=== PATIENT | female | born 1995 | race African-American/Black ===

== ENCOUNTER 2016-07-11 21:19 | Inpatient (IN) | payer OTHER ==
[~2016-07-11] VITALS: Ht 165.1 cm; Wt 56.7 kg
[2016-07-11 21:20] VITALS: BP 138/74; PULSE 104; RESP 22; TEMP 98; O2SAT 96
[2016-07-11] MEDS ORDERED: FOLI5CAP PO (21:51)
[2016-07-11] MEDS ORDERED: PERC5TAB12 PO (21:51)
--- NOTE | 2016-07-11 21:57 | PD ---
HPI Chief Complaint: Sickle Cell Time Seen by Provider: 21:46 Travel History International Travel<30 days: No Contact w/Intl Traveler<30days: No Traveled to known affect area: No History of Present Illness HPI 20-year-old female complains of chest pain back pain extremity pain. Patient has history of sickle cell disease with frequent sickle cell crisis. Patient states that she has crisis about once a week. Patient lives in [place]. Patient is [employer] attending school. Patient denies any coughing congestion fever chills. Patient denies any nausea vomiting diarrhea. She denies abdominal pain. Patient states that she has sharp pain around the chest, the back area and extremity. PFSH Past Medical History Sickle Cell Disease: Yes ?: Not LMP: 07/11/16 Past Surgical History Abdominal Surgery: Yes (LIVER SX) Cholecystectomy: Yes Social History Alcohol Use: No Tobacco Use: No Substance Use: No Allergies-Medications (Allergen,Severity, Reaction): Coded Allergies: No Known Allergies (Unverified , 07/11/16) Reported Meds & Prescriptions Reported Meds & Active Scripts Active Reported Percocet (Oxycodone-Acetaminophen) 5-325 mg Tab 1 Tab PO Q4H PRN Folic Acid 5 Mg Cap 1 Mg PO DAILY Review of Systems General / Constitutional: No: Fever Eyes: No: Visual changes HENT: No: Headaches Cardiovascular: Positive: Chest Pain or Discomfort Respiratory: No: Shortness of Breath Gastrointestinal: No: Abdominal Pain Genitourinary: No: Dysuria Musculoskeletal: Positive: Pain Skin: No Rash Neurologic: No: Weakness Psychiatric: No: Depression Endocrine: No: Polydipsia Hematologic/Lymphatic: No: Easy Bruising Physical Exam Narrative GENERAL: Well-nourished, well-developed patient. SKIN: Warm and dry. HEAD: Normocephalic. EYES: No scleral icterus. No injection or drainage. NECK: Supple, trachea midline. No JVD or lymphadenopathy. CARDIOVASCULAR: Regular rate and rhythm without murmurs, gallops, or rubs. RESPIRATORY: Breath sounds equal bilaterally. No accessory muscle use. GASTROINTESTINAL: Abdomen soft, non-tender, nondistended. MUSCULOSKELETAL: No cyanosis, or edema. BACK: Nontender without obvious deformity. No CVA tenderness. Neurologic exam normal. Data Data Last Documented VS Vital Signs Date Time Temp Pulse Resp B/P Pulse Ox O2 Delivery O2 Flow Rate FiO2 07/12/16 00:21 18 07/11/16 23:00 126 163/75 97 07/11/16 21:46 Room Air 07/11/16 21:20 98.0 Orders Electrocardiogram (07/11/16 21:50) Complete Blood Count With Diff (07/11/16 21:50) Basic Metabolic Panel (Bmp) (07/11/16 21:50) Iv Access Insert/Monitor (07/11/16 21:50) Ecg Monitoring (07/11/16 21:50) Oximetry (07/11/16 21:50) Retic Count (07/11/16 21:50) Sodium Chlor 0.9% 1000 Ml Inj (Ns 1000 M (07/11/16 22:00) Hydromorphone Pf Inj (Dilaudid Pf Inj) (07/11/16 22:00) Ondansetron Inj (Zofran Inj) (07/11/16 22:00) Diphenhydramine Inj (Benadryl Inj) (07/11/16 22:00) Hydromorphone Pf Inj (Dilaudid Pf Inj) (07/11/16 23:45) Diphenhydramine Inj (Benadryl Inj) (07/11/16 23:45) Sodium Chlor 0.9% 1000 Ml Inj (Ns 1000 M (07/12/16 00:00) Labs Laboratory Tests Test 07/11/16 22:08 Sodium Level 141 MEQ/L Potassium Level 3.8 MEQ/L Chloride Level 105 MEQ/L Carbon Dioxide Level 26.2 MEQ/L Anion Gap 10 MEQ/L Blood Urea Nitrogen 6 MG/DL Creatinine 0.55 MG/DL Estimat Glomerular Filtration 172 ML/MIN Rate Random Glucose 115 MG/DL Calcium Level 9.2 MG/DL White Blood Count 25.0 TH/MM3 Red Blood Count 2.18 MIL/MM3 Hemoglobin 8.2 GM/DL Hematocrit 23.2 % Mean Corpuscular Volume 106.7 FL Mean Corpuscular Hemoglobin 37.5 PG Mean Corpuscular Hemoglobin 35.2 % Concent Red Cell Distribution Width 19.6 % Platelet Count 508 TH/MM3 Mean Platelet Volume 8.7 FL Neutrophils (%) (Auto) 82.9 % Lymphocytes (%) (Auto) 10.8 % Monocytes (%) (Auto) 4.9 % Eosinophils (%) (Auto) 0.8 % Basophils (%) (Auto) 0.6 % Neutrophils # (Auto) 20.7 TH/MM3 Lymphocytes # (Auto) 2.7 TH/MM3 Monocytes # (Auto) 1.2 TH/MM3 Eosinophils # (Auto) 0.2 TH/MM3 Basophils # (Auto) 0.1 TH/MM3 CBC Comment AUTO DIFF Differential Comment AUTO DIFF CONFIRMED Toxic Granulation Platelet Estimate HIGH Platelet Morphology Comment NORMAL Sickle Cells 1+ Schreiber-[place] Bodies PRESENT Reticulocyte Count 9.3 % Absolute Reticulocyte Count 201.8 MIL/L MDM Medical Decision Making Medical Screen Exam Complete: Yes Emergency Medical Condition: Yes Interpretation(s) 1:43 AM. CBC WBC 25.0. Hemoglobin 8.2 hematocrit 23.2. MCV 106.7. Platelet 508. 82 neutrophil. Reticular cell count 9.3. Absolute reticulocyte count 201.8. BMP within normal limit. Differential Diagnosis Differential diagnosis including sickle cell crisis, acute on chronic pain. Narrative Course 20-year-old female complains chest pain, back pain, extremity pain. History of sickle cell disease with frequent sickle cell crisis. Dilaudid 1 mg IV given. Normal saline solution 1 L IV bolus. Benadryl 25 mg IV. Repeated Dilaudid 1 mg IV. Repeated Benadryl 25 mg IV. Repeated normal saline solution 1 L IV bolus. 1:42 AM. Patient still has intractable pain. Patient will be admitted to medical service. Diagnosis Primary Impression: Sickle cell crisis Admitting Information Admitting Physician Requests: Admit Franco Gilmore MD Jul 11, 2016 21:57
[2016-07-11] MEDS ORDERED: SODIUM CHLOR 0.9% 1000 ML INJ 1,000 ML IV ONE (22:00)
[2016-07-11] MEDS ORDERED: diphenhydrAMINE HCL 50 MG/ML VIAL IV PUSH ONE ×2 (22:00→23:45)
[2016-07-11] MEDS ORDERED: HYDROmorphone HCL PF 1 MG/ML VIAL IV PUSH ONE ×2 (22:00→23:45)
[2016-07-11] MEDS ORDERED: ONDANSETRON HCL 4 MG/2 ML VIAL IV PUSH ONE (22:00)
[2016-07-11 22:32] LABS: AUTOMATED NEUTROPHIL # 20.7 TH/MM3 (1.8-7.7); BASOPHIL # 0.1 TH/MM3 (0-0.2); BASOPHIL % 0.6 % (0.0-2.0); EOSINOPHIL # 0.2 TH/MM3 (0-0.4); EOSINOPHIL % 0.8 % (0.0-4.0); HEMATOCRIT 23.2 % (35.0-46.0); LYMPH % 10.8 % (9.0-44.0); LYMPHOCYTE # 2.7 TH/MM3 (1.0-4.8); MEAN CELL VOLUME 106.7 FL (80.0-100.0); MEAN CORPUSCULAR HEMOGLOBIN 37.5 PG (27.0-34.0); MEAN CORPUSCULAR HGB CONC 35.2 % (32.0-36.0); MONO % 4.9 % (0.0-8.0); NEUT % 82.9 % (16.0-70.0); PLATELET COUNT 508 TH/MM3 (150-450); RED BLOOD COUNT 2.18 MIL/MM3 (4.00-5.30); RED CELL DISTRIBUTION WIDTH 19.6 % (11.6-17.2); RETIC % 9.3 % (0.4-3.0)
[2016-07-11 22:34] LABS: HEMO FLAGS AUTO DIFF; REVIEW FLAG AUTO DIFF
[2016-07-11 22:47] LABS: BICARBONATE 26.2 MEQ/L (21.0-32.0); POTASSIUM 3.8 MEQ/L (3.5-5.1)
[2016-07-11 23:00] VITALS: BP 163/75; PULSE 126; RESP 22; O2SAT 97
[2016-07-12] MEDS ORDERED: SODIUM CHLOR 0.9% 1000 ML INJ 1,000 ML IV ONE
[2016-07-12 00:25] LABS: HOWELL-JOLLY BODIES PRESENT (NONE SEEN); SCAN/DIFF AUTO DIFF CONFIRMED
[2016-07-12 00:26] LABS: SICKLE CELLS 1+ (NORMAL)
[2016-07-12 00:27] LABS: PLATELET ESTIMATE SMEAR HIGH (NORMAL); PLATELET MORPHOLOGY NORMAL (NORMAL)
[2016-07-12] MEDS ORDERED: SODIUM CHLORIDE 0.9% FLUSH 5 ML FLUSH FLUSH PRN (02:00)
[2016-07-12] MEDS ORDERED: ONDANSETRON HCL 4 MG/2 ML VIAL IVP PRN (02:00)
[2016-07-12] MEDS ORDERED: BISACODYL 10 MG SUPP PR PRN (02:00)
[2016-07-12] MEDS: SODIUM CHLOR 0.9% 1000 ML INJ 1,000 ML IV SCH ×4 (02:32→22:00)
[2016-07-12 03:02] VITALS: BP 147/87; PULSE 115; RESP 18; TEMP 98.1; O2SAT 97
[2016-07-12] MEDS: HYDROmorphone HCL PF 1 MG/ML VIAL IV PRN ×2 (03:04→23:02)
[2016-07-12] MEDS ORDERED: diphenhydrAMINE HCL 50 MG/ML VIAL IV PUSH PRN (03:15)
--- NOTE | 2016-07-12 03:23 | HHI.HP ---
HPI [facility] No Primary Care Physician Admission Diagnosis sickle cell crisis and intractable pain Diagnoses: (1) Sickle cell crisis Diagnosis: Principal (2) Intractable pain Diagnosis: Principal (3) HTN (hypertension) Diagnosis: Principal Travel History International Travel<30 Days: No Contact w/Intl Traveler <30 Da: No Traveled to Known Affected Are: No History of Present Illness This is a 20-year-old female with a PMH of Sickle Cell Disease who presented to the ER with complaints of generalized pain typical of her sickle cell crises x2 days. Has been taking home pain medication w/ minimal relief. Denies fever, chills, cough or SOB. On arrival, BP 163/75, HR 126, O2 sat 97% on RA, Afebrile. WBC 25. Hgb 8.2. Retic 9.3. S/p multiple doses of Dilaudid IV and Benadryl IV w/ minimal improvement. On Folic Acid at home, no local Regional Sales Coordinator as pt normally lives in [place], currently at [employer] school. Review of Systems Except as stated in HPI: all other systems reviewed are Neg ROS: 14 point review of systems otherwise negative. Past Family Social History Past Medical History PMH: Sickle Cell Disease Past Surgical History PAST SURGICAL HISTORY: Cholecystectomy, Liver Surgery Allergies: Coded Allergies: No Known Allergies (Unverified , 07/11/16) Family History PAST FAMILY HISTORY: Reviewed. No h/o DM or CAD Social History PAST SOCIAL HISTORY: Negative for alcohol, tobacco or drugs. Physical Exam Vital Signs Vital Signs Date Time Temp Pulse Resp B/P Pulse Ox O2 Delivery O2 Flow Rate FiO2 07/12/16 03:02 98.1 115 18 147/87 97 Room Air 07/12/16 02:33 18 07/12/16 00:21 18 07/11/16 23:00 126 22 163/75 97 07/11/16 21:46 20 Room Air 07/11/16 21:20 98.0 104 22 138/74 96 Room Air Physical Exam PE: GENERAL: Young black female in no acute distress. HEENT: PERRLA, EOMI. No scleral icterus or conjunctival pallor. No lid lag or facial droop. CARDIOVASCULAR: Regular rate and rhythm. No obvious murmurs to auscultation. No chest tenderness to palpation. RESPIRATORY: No obvious rhonchi or wheezing. Clear to auscultation. Breath sounds equal bilaterally. GASTROINTESTINAL: Abdomen soft, non-tender, nondistended. BS normal. MUSCULOSKELETAL: Extremities without clubbing, cyanosis, or edema. No obvious deformities. NEUROLOGICAL: Awake, alert and oriented x4. No focal neurologic deficits. Moving both upper and lower extremities spontaneously. Laboratory Laboratory Tests Test 07/11/16 22:08 Sodium Level 141 Potassium Level 3.8 Chloride Level 105 Carbon Dioxide Level 26.2 Anion Gap 10 Blood Urea Nitrogen 6 Creatinine 0.55 Estimat Glomerular Filtration 172 Rate Random Glucose 115 Calcium Level 9.2 White Blood Count 25.0 Red Blood Count 2.18 Hemoglobin 8.2 Hematocrit 23.2 Mean Corpuscular Volume 106.7 Mean Corpuscular Hemoglobin 37.5 Mean Corpuscular Hemoglobin 35.2 Concent Red Cell Distribution Width 19.6 Platelet Count 508 Mean Platelet Volume 8.7 Neutrophils (%) (Auto) 82.9 Lymphocytes (%) (Auto) 10.8 Monocytes (%) (Auto) 4.9 Eosinophils (%) (Auto) 0.8 Basophils (%) (Auto) 0.6 Neutrophils # (Auto) 20.7 Lymphocytes # (Auto) 2.7 Monocytes # (Auto) 1.2 Eosinophils # (Auto) 0.2 Basophils # (Auto) 0.1 CBC Comment AUTO DIFF Differential Comment AUTO DIFF CONFIRMED Toxic Granulation Platelet Estimate HIGH Platelet Morphology Comment NORMAL Sickle Cells 1+ Schreiber-[place] Bodies PRESENT Reticulocyte Count 9.3 Absolute Reticulocyte Count 201.8 Result Diagram: 07/11/16220707/11/162207 Assessment and Plan Problem List: (1) Sickle cell crisis ICD Code: D57.00 Status: Acute (2) Intractable pain ICD Code: R52 Status: Acute (3) HTN (hypertension) ICD Code: I10 Status: Acute Assessment and Plan A/P: 1. Sickle Cell Disease: w/ Acute Sickle Cell Crisis, c/o generalized pain, Retic 9.3. IVF for hydration, Dilaudid IV, Benadryl IV prn, Folic Acid. Hgb 8.2, likely hemoconcentrated, will repeat labs after IVF. 2. Intractable Pain: Secondary to above, s/p multiple doses of Dilaudid IV in ER w/ minimal improvement, continue w/ analgesics/antiemetics as needed. 3. HTN: BP 160's on arrival, likely compounded by pain complaints. Currently BP 140's. Will monitor. 4. DVT Prophylaxis: SCD/Teds. 5. Social work for d/c planning as needed. 6. Case discussed w/ ER physician at length. Physician Certification 2 Midnight Certification Type: Admission for Inpatient Services Order for Inpatient Services The services are ordered in accordance with Medicare regulations or non- Medicare payer requirements, as applicable. In the case of services not specified as inpatient-only, they are appropriately provided as inpatient services in accordance with the 2-midnight benchmark. Estimated LOS (days): 2 days is the estimated time the patient will need to remain in the hospital, assuming treatment plan goals are met and no additional complications. Post-Hospital Plan: Not yet determined Joann Chung MD Jul 12, 2016 03:23
[2016-07-12] MEDS: HYDROmorphone HCL PF 2 MG/ML VIAL IV PRN ×4 (06:35→17:16)
[2016-07-12 08:00] VITALS: BP 127/72; PULSE 113; RESP 16; TEMP 98.7; O2SAT 93
[2016-07-12] MEDS: FOLIC ACID 1 MG TAB PO SCH (09:39)
[2016-07-12] MEDS: SODIUM CHLORIDE 0.9% FLUSH 5 ML FLUSH FLUSH SCH ×2 (09:39→21:00)
[2016-07-12 12:00] VITALS: BP 111/66; PULSE 100; RESP 19; TEMP 101.2; O2SAT 99
--- NOTE | 2016-07-12 12:20 | EKG ---
Date Performed: 07/11/2016 Time Performed: 23:18:26 PTAGE: 20 years EKG: SINUS TACHYCARDIA NONSPECIFIC ST & T-WAVE ABNORMALITY LVH by voltage ABNORMAL ECG NO PREVIOUS TRACING DOCTOR: Pancho Quesada Interpretating Date/Time 07/12/2016 12:18:54
[2016-07-12 16:00] VITALS: BP 120/63; PULSE 112; RESP 18; TEMP 99.8; O2SAT 97
[2016-07-12] MEDS: ACETAMINOPHEN 325 MG TAB PO PRN ×2 (17:15→23:58)
[2016-07-12 20:35] VITALS: BP 123/68; PULSE 100; RESP 16; TEMP 99.7; O2SAT 92
[2016-07-13] VITALS (7 sets, daily range): BP systolic 94–122; BP diastolic 51–72; PULSE 87–101; RESP 16–20; TEMP 98.3–101.2; O2SAT 92–98
[2016-07-13] MEDS: HYDROmorphone HCL PF 1 MG/ML VIAL IV PRN ×2 (02:39→06:28)
[2016-07-13] MEDS: ACETAMINOPHEN 325 MG TAB PO PRN ×2 (06:27→15:36)
[2016-07-13 07:12] LABS: AUTOMATED NEUTROPHIL # 16.1 TH/MM3 (1.8-7.7); BASOPHIL # 0.1 TH/MM3 (0-0.2); BASOPHIL % 0.4 % (0.0-2.0); EOSINOPHIL # 0.1 TH/MM3 (0-0.4); EOSINOPHIL % 0.4 % (0.0-4.0); LYMPH % 16.6 % (9.0-44.0); LYMPHOCYTE # 3.7 TH/MM3 (1.0-4.8); MEAN CELL VOLUME 107.7 FL (80.0-100.0); MEAN CORPUSCULAR HEMOGLOBIN 37.6 PG (27.0-34.0); MONO % 10.3 % (0.0-8.0); NEUT % 72.3 % (16.0-70.0); PLATELET COUNT 383 TH/MM3 (150-450); RED BLOOD COUNT 1.67 MIL/MM3 (4.00-5.30); RED CELL DISTRIBUTION WIDTH 21.3 % (11.6-17.2); WHITE BLOOD COUNT 22.2 TH/MM3 (4.0-11.0)
[2016-07-13 07:46] LABS: ALKALINE PHOSPHATASE 82 U/L (45-117)
[2016-07-13 07:52] LABS: ALT (GPT) 18 U/L (9-42); ANION GAP 8 MEQ/L (5-15); AST (GOT) 57 U/L (16-38); BICARBONATE 27.6 MEQ/L (21.0-32.0); CHLORIDE 104 MEQ/L (98-107); GLOMERULAR FILTRATION RATE 150 ML/MIN (>89); POTASSIUM 4.4 MEQ/L (3.5-5.1); SODIUM (NA) 140 MEQ/L (136-145)
[2016-07-13 07:54] LABS: BLOOD UREA NITROGEN 8 MG/DL (7-18)
[2016-07-13 08:26] LABS: HEMO FLAGS AUTO DIFF
[2016-07-13 08:29] LABS: BASOPHILS 2 % (0-2); CORRECTED NUCLEATED RBC 3 /100 WBC (0-0); NEUTROPHIL # MANUAL DIFF 14.4 TH/MM3 (1.8-7.7); POLYS (SEG NEUTROPHILS) 65 % (16-70); WBC DIFF SAMPLE 100
[2016-07-13 08:30] LABS: POLYCHROMASIA 2.6 % (0.0-1.9); TARGET CELLS 1+ (NORMAL)
[2016-07-13 08:31] LABS: HOWELL-JOLLY BODIES PRESENT (NONE SEEN); PLATELET ESTIMATE SMEAR NORMAL (NORMAL); PLATELET MORPHOLOGY NORMAL (NORMAL); SCAN/DIFF FINAL DIFF MANUAL; SICKLE CELLS 1+ (NORMAL)
[2016-07-13] MEDS: HYDROmorphone HCL PF 2 MG/ML VIAL IV PRN ×3 (11:00→20:33)
[2016-07-13] MEDS: FOLIC ACID 1 MG TAB PO SCH (11:00)
[2016-07-13] MEDS: SODIUM CHLORIDE 0.9% FLUSH 5 ML FLUSH FLUSH SCH ×2 (11:01→20:17)
--- NOTE | 2016-07-13 14:41 | HHI.PR ---
Subjective Remarks still with aches and pains no abdominal pain, nausea or vomiting denies any chills, urinary symptoms coughregular cycles- last cycle 2 weeks ago sttes she goes into crisis almost q monthly- on Dilaudid and Percocet as OP Objective Vitals Vital Signs Date Time Temp Pulse Resp B/P Pulse Ox O2 Delivery O2 Flow Rate FiO2 07/13/16 12:00 98.3 98 16 94/52 95 07/13/16 08:00 99.0 87 16 96/51 94 07/13/16 04:00 100.8 97 16 108/63 92 07/13/16 00:00 100.0 97 20 115/72 97 07/12/16 20:35 99.7 100 16 123/68 92 07/12/16 16:00 99.8 112 18 120/63 97 I/O 07/12/16 07/12/16 07/12/16 07/13/16 07/13/16 07/13/16 07:00 15:00 23:00 07:00 15:00 23:00 Intake Total 1000 ml 960 ml 240 ml 240 ml Output Total 1200 ml Balance 1000 ml -240 ml 240 ml 240 ml Intake Oral 960 ml 240 ml 240 ml IV Total 1000 ml Output Urine Total 1200 ml # Voids 3 3 4 # Bowel Movements 0 0 Result Diagram: 07/13/1660407/13/16604 Objective Remarks awake and alert no exudates no nuchal rigidity lungs decreased breath sounds, no rales or wheezes regular rhythm abdomen soft, nontender extremities no edema neuro exam- non focal A/P Problem List: (1) Sickle cell crisis ICD Code: D57.00 Status: Acute (2) Intractable pain ICD Code: R52 Status: Acute (3) HTN (hypertension) ICD Code: I10 Status: Acute Assessment and Plan 20 years old female here from [place] - going to school in [employer] taking [employer] on chronic pain meds- Percocet 5/325 and folic acid Sickle Cell Disease: w/ Acute Sickle Cell Crisis, c/o generalized pain, Retic 9.3. IVF for hydration, Dilaudid IV, Benadryl IV prn, Folic Acid. Acute anemia- from hydration- will get labs continue hydration will consult Hematology - for recommendation called her Electronic Equipment Repairer - Dr. Dereck vann' office- in [place]- fax us latest labs- baseline type and xmatch 2 unit RBC standby Fever leukocytosis- may be from crisis work up CXR, UA order for Incentive spirometry HTN: BP 160's on arrival, likely compounded by pain complaints. Will monitor. DVT Prophylaxis: SCD/Teds. Social work for d/c planning as needed. Migel Johnson MD Jul 13, 2016 14:41
--- NOTE | 2016-07-13 19:32 | MB ---
cc: NICOLASA EVANS MD DATE OF CONSULTATION 07/13/16 DATE OF BIRTH0 1995 REASON FOR CONSULTATION Patient with a history of sickle cell disease who presents with sickle cell crises. CHIEF COMPLAINT Joint aches and pains. HISTORY OF PRESENT ILLNESS This is a 20-year-old female with a history of sickle cell disease who presented to the emergency department with joint aches and pains which are consistent with her usual sickle cell crises. She follows with a counsellors in [place]. She has not established a counsellors in the area. She attends [facility]. She is on Hydrea and folic acid at home. On admission, her O2 saturations were very stable at 97% on room air. She was given IV Dilaudid and Benadryl on admission. She remains in significant amount of pain and is requiring IV Dilaudid. Her hemoglobin on admission was 8.2. Today her hemoglobin is 6.3. Two orders of packed red blood cells were ordered. 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 This is based on my conversation with the patient and her baseline hemoglobin which has been in the low seven to eight range. She denies any cough or congestion. No fevers or chills. No nausea, vomiting, no headaches. She does not have any history of stroke. REVIEW OF SYSTEMS A comprehensive 14-point review of systems was completed which is negative except as described in HPI. PAST MEDICAL HISTORY Sickle cell disease PAST SURGICAL HISTORY 1. Cholecystectomy 2. Liver surgery. MEDICATIONS 1. Folic acid Inpatient medications include 1. IV Zofran 4 mg IV q.6 h. 2. Tylenol 650 1 tablet p.o. q.6 h. 3. Dilaudid 1 mg IV q 2 hours p.r.n. ALLERGIES She is does not have any known drug allergies. FAMILY HISTORY Significant for sickle cell disease. SOCIAL HISTORY She is a student. She does not admit to drinking alcohol. No tobacco or drug abuse. PHYSICAL EXAMINATION VITAL SIGNS: Blood pressure is 99/59, pulse is in the 100s, temperature is 101.2, O2 sats are 98% on room air. GENERAL: Well-developed, well-nourished female in [id number] distress. HEENT: Pupils are equal, round, reactive to light. EOMI. No oral thrush. No oral lesions. NECK: Supple. No JVD, no bruits. No lymphadenopathy. CHEST: Clear to auscultation bilaterally. CARDIAC: S1-S2, tachycardiac. ABDOMEN: Soft, nontender, nondistended. Bowel sounds are present. EXTREMITIES: Without any edema, erythema or cyanosis. SKIN: Without any petechiae, lesion or bruises. NEUROLOGIC: No focal deficits. PSYCHIATRIC: Mood and affect is appropriate. LABORATORY DATA WBCs 22.2, hemoglobin is 6.3, MCV is 107.7, platelet count is 383. Her retic count was elevated to 9.3. Serum chemistries shows sodium of 140, potassium 4.4, chloride 104, CO2 27.6, BUN eight, creatinine 0.62, calcium 8.6, total bilirubin 17, AST 57, ALT 18, alk phos 82, total protein seven, albumin 3.7. IMAGING STUDIES None. ASSESSMENT/PLAN This is a 20-year-old female with history of sickle cell disease who presents to the emergency department with sickle cell crises. 1. Sickle cell disease with acute crises. Her hemoglobin is 6.3. She has elevated total bilirubin. Retic count is elevated. Peripheral smear shows many sickle cells. I would recommend transfusing one unit of packed red blood cells. We will minimize blood transfusion in this patient with sickle cell disease. I will obtain a hemoglobin electrophoresis. Continue IV fluids. Continue folic acid. We will hold off on starting Hydrea in acute crises. Check daily LDH, reticulocyte count and bilirubin levels. Continue pain control with IV Dilaudid, add oral Percocet 5/325 q.4-6 h p.r.n. pain. Initiate incentive spirometry. 2. Fever. We will obtain a chest x-ray, obtain UA and urine culture. I would have low threshold for starting antibiotics in this patient with sickle cell disease if she continue to spike fevers. Many sickle cell patients have infarcted spleen and if abx coverage is started and it should be directed towards encapsulated organisms. Obtain an influenza screen Thank you for allowing me to participate in the care of this patient. I will continue to follow this patient along. MD JUSTUS Willis/ /6:59 PM /7:16 PM MTDNeva
--- NOTE | 2016-07-13 20:58 | RADRPT ---
EXAM DATE/TIME: 07/13/2016 19:59 [facility] COMPARISON: No previous studies available for comparison. INDICATIONS : Fever. Sickle cell crisis. MEDICAL HISTORY : Sickle Cell disease. SURGICAL HISTORY : Cholecystectomy. ENCOUNTER: Initial ACUITY: 2 days PAIN SCORE: 2/10 LOCATION: Bilateral chest FINDINGS: PA and lateral views of the chest demonstrate patchy airspace disease in both lungs. There is no evid ence of significant consolidation. Heart and mediastinal structures are unremarkable. Osseous structures are intact. CONCLUSION: Patchy airspace disease throughout both lungs characteristic of pneumonitis. Dereck Butt MD on July 13, 2016 at 20:56 Board Certified Radiologist. This report was verified electronically.
[2016-07-13 23:47] LABS: BLOOD, URINE NEG (NEG); GLUCOSE,URINE NEG (NEG); KETONE, URINE 10 mg/dL (NEG); NITRITE,URINE NEG (NEG); SQUAMOUS EPITHELIAL CELL URINE 1 /hpf (0-5); URINE COLOR YELLOW (YELLW/STRAW)
[2016-07-13 23:52] LABS: COMMENT (UR) CULT NOT INDICATED; CULTURE IF INDICATED CULT NOT INDICATED
[2016-07-14] VITALS (7 sets, daily range): BP systolic 109–145; BP diastolic 57–82; PULSE 72–97; RESP 16–20; TEMP 98.9–100.3; O2SAT 93–97
[2016-07-14] MEDS: SODIUM CHLOR 0.9% 1000 ML INJ 1,000 ML IV SCH ×2 (00:40→20:50)
[2016-07-14] MEDS: HYDROmorphone HCL PF 2 MG/ML VIAL IV PRN ×3 (02:20→23:07)
[2016-07-14 05:08] LABS: AUTOMATED NEUTROPHIL # 17.1 TH/MM3 (1.8-7.7); BASOPHIL % 0.2 % (0.0-2.0); EOSINOPHIL # 0.1 TH/MM3 (0-0.4); EOSINOPHIL % 0.3 % (0.0-4.0); LYMPH % 7.7 % (9.0-44.0); LYMPHOCYTE # 1.6 TH/MM3 (1.0-4.8); MEAN CELL VOLUME 106.6 FL (80.0-100.0); MEAN CORPUSCULAR HEMOGLOBIN 37.4 PG (27.0-34.0); MEAN CORPUSCULAR HGB CONC 35.1 % (32.0-36.0); MONO % 10.2 % (0.0-8.0); NEUT % 81.6 % (16.0-70.0); PLATELET COUNT 355 TH/MM3 (150-450); RED BLOOD COUNT 1.51 MIL/MM3 (4.00-5.30); RED CELL DISTRIBUTION WIDTH 19.1 % (11.6-17.2)
[2016-07-14 05:16] LABS: HEMO FLAGS AUTO DIFF
[2016-07-14 05:20] LABS: HEMATOCRIT 16.1 % (35.0-46.0)
[2016-07-14 05:58] LABS: PLATELET ESTIMATE SMEAR NORMAL (NORMAL); PLATELET MORPHOLOGY NORMAL (NORMAL); SCAN/DIFF AUTO DIFF CONFIRMED; SICKLE CELLS 1+ (NORMAL)
[2016-07-14] MEDS: FOLIC ACID 1 MG TAB PO SCH (08:41)
[2016-07-14] MEDS ORDERED: SODIUM CHLOR 0.9% 250 ML INJ 250 ML IV ONE (09:30)
[2016-07-14] MEDS ORDERED: diphenhydrAMINE HCL 25 MG CAP PO PRN (09:30)
[2016-07-14] MEDS ORDERED: ACETAMINOPHEN 325 MG TAB PO PRN (09:30)
--- NOTE | 2016-07-14 09:31 | PD.ONC.PN ---
Subjective Subjective Remarks Tmax 101.2 overnight. Patient complaining of some pain in her back, but denies any chest pain. She denies shortness of breath. She denies pain with breathing. Objective Data Date Time Temp Pulse Resp B/P Pulse Ox O2 Delivery O2 Flow Rate FiO2 07/14/16 08:46 99.8 90 18 112/74 97 07/14/16 08:25 100.3 93 16 115/72 93 07/14/16 00:10 99.2 97 17 109/57 95 07/13/16 20:10 99.7 97 17 122/61 94 07/13/16 20:00 94 07/13/16 16:00 101.2 101 20 99/59 98 07/13/16 12:00 98.3 98 16 94/52 95 07/14/16 07/14/16 07/14/16 07:00 15:00 23:00 Intake Total 1119 ml Balance 1119 ml Result Diagram: 07/14/16 0417 07/13/16 0605 Laboratory Results Laboratory Tests Test 07/13/16 07/13/16 07/14/16 07/14/16 20:57 23:33 04:17 06:01 Blood Type O POSITIVE O POSITIVE O POSITIVE Antibody Screen NEGATIVE Blood Bank Comment Urine Color YELLOW Urine Turbidity CLEAR Urine pH 6.0 Urine Specific [place] 1.009 Urine Protein 30 mg/dL Urine Glucose (UA) NEG mg/dL Urine Ketones 10 mg/dL Urine Occult Blood NEG Urine Nitrite NEG Urine Bilirubin NEG Urine Urobilinogen 2.0 MG/DL Urine Leukocyte Esterase NEG Urine RBC LESS THAN 1 /hpf Urine WBC 1 /hpf Urine Squamous Epithelial 1 /hpf Cells Microscopic Urinalysis Comment CULT NOT INDICATED White Blood Count 21.0 TH/MM3 Red Blood Count 1.51 MIL/MM3 Hemoglobin 5.6 GM/DL Hematocrit 16.1 % Mean Corpuscular Volume 106.6 FL Mean Corpuscular Hemoglobin 37.4 PG Mean Corpuscular Hemoglobin 35.1 % Concent Red Cell Distribution Width 19.1 % Platelet Count 355 TH/MM3 Mean Platelet Volume 9.5 FL Neutrophils (%) (Auto) 81.6 % Lymphocytes (%) (Auto) 7.7 % Monocytes (%) (Auto) 10.2 % Eosinophils (%) (Auto) 0.3 % Basophils (%) (Auto) 0.2 % Neutrophils # (Auto) 17.1 TH/MM3 Lymphocytes # (Auto) 1.6 TH/MM3 Monocytes # (Auto) 2.1 TH/MM3 Eosinophils # (Auto) 0.1 TH/MM3 Basophils # (Auto) 0.0 TH/MM3 CBC Comment AUTO DIFF Differential Comment AUTO DIFF CONFIRMED Platelet Estimate NORMAL Platelet Morphology Comment NORMAL Sickle Cells 1+ Hematology Comments Crossmatch Leukocyte-Reduced Red Blood Cells Culture Results Microbiology Date/Time Procedure Status Source Growth 07/13/16 20:57 Aerobic Blood Culture Received Blood Peripheral Pending 07/13/16 20:57 Anaerobic Blood Culture Received Blood Peripheral Pending 07/13/16 21:05 Aerobic Blood Culture Received Blood Peripheral Pending 07/13/16 21:05 Anaerobic Blood Culture Received Blood Peripheral Pending 07/14/16 03:55 Influenza Types A,B Antigen (SIOBHAN) - Final Complete Nasal Washing NEGATIVE FOR FLU A AND B ANTIGEN.... Imaging Studies Last 24 hours Impressions Chest X-Ray 07/13/16 1458 Signed Impressions: Service Date/Time: Wednesday, July 13, 2016 19:59 - CONCLUSION: Patchy airspace disease throughout both lungs characteristic of pneumonitis. Dereck Butt MD Administered Medications Medications (Trade) Dose Ordered Sig/Arjun Route PRN Reason Start Time Stop Time Status Last Admin Dose Admin Sodium Chloride (NS 1000 ml Inj) 1,000 ml @ 150 mls/hr Q6H40M IV 07/12/16 02:00 07/14/16 00:40 IV Flush (NS Flush) 2 ml UNSCH PRN FLUSH FLUSH AFTER USING IV ACCESS 07/12/16 02:00 07/12/16 06:35 IV Flush (NS Flush) 2 ml BID FLUSH 07/12/16 09:00 07/13/16 11:01 Ondansetron HCl (Zofran Inj) 4 mg Q6H PRN IVP NAUSEA OR VOMITING 07/12/16 02:00 07/12/16 17:15 Acetaminophen (Tylenol) 650 mg Q6H PRN PO FEVER 07/12/16 02:00 07/13/16 15:36 Hydromorphone HCl (Dilaudid Pf Inj) 1 mg Q2H PRN IV PAIN 1-5 07/12/16 02:00 07/13/16 06:28 Hydromorphone HCl (Dilaudid Pf Inj) 2 mg Q2H PRN IV PAIN 6-10 07/12/16 02:00 07/14/16 08:41 Folic Acid (Folate) 1 mg DAILY PO 07/12/16 09:00 07/14/16 08:41 Objective Remarks GENERAL: Young woman, lying in supine in bed watching TV. She appears comfortable and in nad. SKIN: Warm and dry. HEAD: Normocephalic. EYES: No injection or drainage. NECK: Supple, trachea midline. CARDIOVASCULAR: Regular rate and rhythm RESPIRATORY: Breath sounds equal bilaterally. No accessory muscle use. GASTROINTESTINAL: Abdomen soft, non-tender, nondistended. EXTREMITIES: No cyanosis, no edema MUSCULOSKELETAL: Adequate muscle tone. NEUROLOGICAL: awake and alert, normal speech Assessment/Plan Problem List: (1) Sickle cell crisis Status: Acute Plan: --continue supportive care with IVF, pain management with IV dilaudid --monitor LDH, retic count, bilirubin levels (2) Febrile syndrome Status: Acute Plan: CXR shows pneumonitis neg flu BC pending u/a neg Many sickle cell patients have infarcted spleen and if abx coverage is started and it should be directed towards encapsulated organisms-->will start Levaquin today Assessment 20y/o with history of sickle cell disease who presents with sickle cell crises. Plan 1. give 1 unit pRBC only, check H/H two hours after blood transfusion 2. start Levaquin 3. monitor BC Attending Statement The exam, history, and the medical decision-making described in the above note were completed with the assistance of the mid-level provider. I reviewed and agree with the findings presented. I attest that I had a [id number] encounter with the patient on the same day, and personally performed and documented my assessment and findings in the medical record. Indirect bili up. LDH up----hemolyzing. check daily LDH/Retic/bili components Minimize blood transfusions . Base line Hb is low 7s Repeat chest X-ray in am Low threshold for Exchange transfusion if becomes hypoxic or dyspneic. currently sats ar e good and breathing comfortably Continue incentive spirometry/daily folic acid Start Levaquin--having fever. d/w Tiffany Hartman Jul 14, 2016 09:31 Garth Hogan MD Jul 15, 2016 00:21
[2016-07-14] MEDS ORDERED: LEVOFLOXACIN 750 MG PREMIX INJ 150 ML IV SCH (10:00)
--- NOTE | 2016-07-14 10:15 | HHI.PR ---
Subjective Remarks states pain 3 out of 10 feeling better no dysuria, diarrhea, or cough encourage to do IS- states she does Objective Vitals Vital Signs Date Time Temp Pulse Resp B/P Pulse Ox O2 Delivery O2 Flow Rate FiO2 07/14/16 08:46 99.8 90 18 112/74 97 07/14/16 08:25 100.3 93 16 115/72 93 07/14/16 08:00 100.3 93 16 115/72 93 07/14/16 00:10 99.2 97 17 109/57 95 07/13/16 20:10 99.7 97 17 122/61 94 07/13/16 20:00 94 07/13/16 16:00 101.2 101 20 99/59 98 07/13/16 12:00 98.3 98 16 94/52 95 I/O 07/13/16 07/13/16 07/13/16 07/14/16 07/14/16 07/14/16 07:00 15:00 23:00 07:00 15:00 23:00 Intake Total 240 ml 360 ml 1018 ml 1119 ml Balance 240 ml 360 ml 1018 ml 1119 ml Intake Oral 240 ml 360 ml 240 ml 240 ml IV Total 778 ml 879 ml # Voids 4 2 0 4 # Bowel Movements 0 0 0 0 Result Diagram: 07/14/16 0417 07/13/16 0605 Imaging Last Impressions Chest X-Ray 07/13/16 1458 Signed Impressions: Service Date/Time: Wednesday, July 13, 2016 19:59 - CONCLUSION: Patchy airspace disease throughout both lungs characteristic of pneumonitis. Dereck Butt MD Objective Remarks awake and alert no exudates no nuchal rigidity lungs decreased breath sounds, no rales or wheezes regular rhythm abdomen soft, nontender extremities no edema, no calf swelling neuro exam- non focal A/P Problem List: (1) Sickle cell crisis ICD Code: D57.00 Status: Acute (2) Intractable pain ICD Code: R52 Status: Acute (3) HTN (hypertension) ICD Code: I10 Status: Acute Assessment and Plan 20 years old female here from [place] - [facility] [place] [employer] taking [employer] on chronic pain meds- Percocet 5/325 and folic acid Sickle Cell Disease: w/ Acute Sickle Cell Crisis, c/o generalized pain, Retic 9.3. IVF for hydration, Dilaudid IV, Benadryl IV prn, Folic Acid. Acute anemia- on chronic appreciate Dr. Hogan ff patient for blood transfusion today. patient received 1 unit yesterday Fever leukocytosis- may be from crisis Pneumonitis on XR UA negative ff Blood cultures started on IV Levaquin 07/14 reinforced Incentive spirometry HTN: BP 160's on arrival, likely compounded by pain complaints. Will monitor. DVT Prophylaxis: SCD/Teds. Social work for d/c planning as needed. encourage out of bed/activity Migel Johnson MD Jul 14, 2016 10:15
[2016-07-14 13:34] LABS: BICARBONATE 28.3 MEQ/L (21.0-32.0); INDIRECT BILIRUBIN 9.1 MG/DL (0.0-0.8); POTASSIUM 3.6 MEQ/L (3.5-5.1); TOTAL BILIRUBIN ADULT 10.1 MG/DL (0.2-1.0)
[2016-07-14 16:15] LABS: HEMATOCRIT 22.2 % (35.0-46.0); REVIEW FLAG FINAL
[2016-07-14] MEDS ORDERED: HYDROmorphone HCL PF 1 MG/ML VIAL IV PRN (18:00)
[2016-07-14] MEDS: LEVOFLOXACIN 750 MG PREMIX INJ 150 ML IV SCH (20:49)
[2016-07-14] MEDS: SODIUM CHLORIDE 0.9% FLUSH 5 ML FLUSH FLUSH SCH (20:49)
[2016-07-15] VITALS (7 sets, daily range): BP systolic 117–157; BP diastolic 63–96; PULSE 65–87; RESP 16–20; TEMP 98.1–99.2; O2SAT 91–100
[2016-07-15] MEDS: SODIUM CHLOR 0.9% 1000 ML INJ 1,000 ML IV SCH ×3 (03:52→20:16)
[2016-07-15] MEDS: HYDROmorphone HCL PF 2 MG/ML VIAL IV PRN ×5 (06:07→20:16)
--- NOTE | 2016-07-15 06:19 | RADRPT ---
EXAM DATE/TIME: 07/15/2016 05:43 [facility] COMPARISON: No previous studies available for comparison. INDICATIONS : Fever. Sickle cell crisis. MEDICAL HISTORY : Sickle Cell disease. SURGICAL HISTORY : None. ENCOUNTER: Subsequent ACUITY: 3 days PAIN SCORE: 6/10 LOCATION: Bilateral chest FINDINGS: Compare 328. Heart size is mildly enlarged. Mild basilar airspace disease is present stable to slight ly increased from July 13. No significant effusion. No pneumothorax. CONCLUSION: 1. Ill-defined basilar airspace disease stable to slightly increased from July 13. Mild cardiomeg kassi. Edenilson Franklin MD on July 15, 2016 at 6:17 Board Certified Radiologist. This report was verified electronically.
[2016-07-15 07:25] LABS: AUTOMATED NEUTROPHIL # 10.6 TH/MM3 (1.8-7.7); BASOPHIL # 0.1 TH/MM3 (0-0.2); BASOPHIL % 0.6 % (0.0-2.0); EOSINOPHIL # 0.3 TH/MM3 (0-0.4); EOSINOPHIL % 1.6 % (0.0-4.0); LYMPH % 25.4 % (9.0-44.0); LYMPHOCYTE # 4.2 TH/MM3 (1.0-4.8); MEAN CELL VOLUME 103.9 FL (80.0-100.0); MEAN CORPUSCULAR HEMOGLOBIN 35.7 PG (27.0-34.0); MEAN CORPUSCULAR HGB CONC 34.4 % (32.0-36.0); MONO % 8.4 % (0.0-8.0); PLATELET COUNT 401 TH/MM3 (150-450); RED BLOOD COUNT 1.99 MIL/MM3 (4.00-5.30); RED CELL DISTRIBUTION WIDTH 21.5 % (11.6-17.2); WHITE BLOOD COUNT 16.6 TH/MM3 (4.0-11.0)
[2016-07-15 07:26] LABS: RETIC % 11.6 % (0.4-3.0)
[2016-07-15 07:52] LABS: ALKALINE PHOSPHATASE 65 U/L (45-117); ALT (GPT) 15 U/L (9-42); ANION GAP 10 MEQ/L (5-15); AST (GOT) 37 U/L (16-38); BICARBONATE 25.5 MEQ/L (21.0-32.0); BLOOD UREA NITROGEN 5 MG/DL (7-18); CHLORIDE 105 MEQ/L (98-107); GLOMERULAR FILTRATION RATE 242 ML/MIN (>89); LDH SERUM 532 U/L (84-246); POTASSIUM 4.5 MEQ/L (3.5-5.1); SODIUM (NA) 140 MEQ/L (136-145); TOTAL BILIRUBIN ADULT 7.6 MG/DL (0.2-1.0)
[2016-07-15 07:53] LABS: HEMO FLAGS AUTO DIFF
[2016-07-15 07:56] LABS: HEMATOCRIT 20.7 % (35.0-46.0)
[2016-07-15] MEDS: FOLIC ACID 1 MG TAB PO SCH (08:32)
[2016-07-15] MEDS: SODIUM CHLORIDE 0.9% FLUSH 5 ML FLUSH FLUSH SCH ×2 (08:36→20:16)
--- NOTE | 2016-07-15 09:54 | PD.ONC.PN ---
Subjective Subjective Remarks Afebrile overnight. Patient resting comfortably. She states she still has some low back pain. She denies shortness of breath or chest pain. Objective Data Date Time Temp Pulse Resp B/P Pulse Ox O2 Delivery O2 Flow Rate FiO2 07/15/16 04:00 98.1 65 16 128/80 96 07/15/16 00:00 99.2 87 17 136/80 94 07/14/16 20:00 99.7 82 16 145/82 97 07/14/16 20:00 86 07/14/16 16:00 99.6 72 20 115/74 96 07/14/16 12:04 98.9 84 16 111/67 93 07/15/16 07/15/16 07/15/16 07:00 15:00 23:00 Intake Total 1440 ml Balance 1440 ml Result Diagram: 07/15/16 0620 07/15/16 0620 Laboratory Results Laboratory Tests Test 07/14/16 07/14/16 07/15/16 11:30 16:00 06:20 Sodium Level 138 MEQ/L 140 MEQ/L Potassium Level 3.6 MEQ/L 4.5 MEQ/L Chloride Level 102 MEQ/L 105 MEQ/L Carbon Dioxide Level 28.3 MEQ/L 25.5 MEQ/L Anion Gap 8 MEQ/L 10 MEQ/L Blood Urea Nitrogen 6 MG/DL 5 MG/DL Creatinine 0.47 MG/DL 0.41 MG/DL Estimat Glomerular Filtration 207 ML/MIN 242 ML/MIN Rate Random Glucose 80 MG/DL 68 MG/DL Calcium Level 8.3 MG/DL 8.8 MG/DL Total Bilirubin 10.1 MG/DL 7.6 MG/DL Direct Bilirubin 1.0 MG/DL 0.6 MG/DL Indirect Bilirubin 9.1 MG/DL 7.0 MG/DL Aspartate Amino Transf 25 U/L 37 U/L (AST/SGOT) Alanine Aminotransferase 14 U/L 15 U/L (ALT/SGPT) Alkaline Phosphatase 67 U/L 65 U/L Lactate Dehydrogenase 452 U/L 532 U/L Total Protein 6.6 GM/DL 7.3 GM/DL Albumin 3.1 GM/DL 3.5 GM/DL Hemoglobin 7.7 GM/DL 7.1 GM/DL Hematocrit 22.2 % 20.7 % White Blood Count 16.6 TH/MM3 Red Blood Count 1.99 MIL/MM3 Mean Corpuscular Volume 103.9 FL Mean Corpuscular Hemoglobin 35.7 PG Mean Corpuscular Hemoglobin 34.4 % Concent Red Cell Distribution Width 21.5 % Platelet Count 401 TH/MM3 Mean Platelet Volume 9.4 FL Neutrophils (%) (Auto) 64.0 % Lymphocytes (%) (Auto) 25.4 % Monocytes (%) (Auto) 8.4 % Eosinophils (%) (Auto) 1.6 % Basophils (%) (Auto) 0.6 % Neutrophils # (Auto) 10.6 TH/MM3 Lymphocytes # (Auto) 4.2 TH/MM3 Monocytes # (Auto) 1.4 TH/MM3 Eosinophils # (Auto) 0.3 TH/MM3 Basophils # (Auto) 0.1 TH/MM3 CBC Comment AUTO DIFF Reticulocyte Count 11.6 % Absolute Reticulocyte Count 221.3 MIL/L Culture Results Microbiology Date/Time Procedure Status Source Growth 07/13/16 20:57 Aerobic Blood Culture - Preliminary Resulted Blood Peripheral NO GROWTH IN 1 DAY 07/13/16 20:57 Anaerobic Blood Culture - Preliminary Resulted Blood Peripheral NO GROWTH IN 1 DAY 07/13/16 21:05 Aerobic Blood Culture - Preliminary Resulted Blood Peripheral NO GROWTH IN 1 DAY 07/13/16 21:05 Anaerobic Blood Culture - Preliminary Resulted Blood Peripheral NO GROWTH IN 1 DAY 07/14/16 03:55 Influenza Types A,B Antigen (SIOBHAN) - Final Complete Nasal Washing NEGATIVE FOR FLU A AND B ANTIGEN.... Imaging Studies Last 24 hours Impressions Chest X-Ray 07/15/16 0600 Signed Impressions: Service Date/Time: July 05:43 - CONCLUSION: 1. Ill- defined basilar airspace disease stable to slightly increased from July 13. Mild cardiomegaly. Edenilson Franklin MD Administered Medications Medications (Trade) Dose Ordered Sig/Arjun Route PRN Reason Start Time Stop Time Status Last Admin Dose Admin Sodium Chloride (NS 1000 ml Inj) 1,000 ml @ 150 mls/hr Q6H40M IV 07/12/16 02:00 07/15/16 08:37 IV Flush (NS Flush) 2 ml UNSCH PRN FLUSH FLUSH AFTER USING IV ACCESS 07/12/16 02:00 07/12/16 06:35 IV Flush (NS Flush) 2 ml BID FLUSH 07/12/16 09:00 07/15/16 08:36 Ondansetron HCl (Zofran Inj) 4 mg Q6H PRN IVP NAUSEA OR VOMITING 07/12/16 02:00 07/12/16 17:15 Acetaminophen (Tylenol) 650 mg Q6H PRN PO FEVER 07/12/16 02:00 07/13/16 15:36 Folic Acid (Folate) 1 mg DAILY PO 07/12/16 09:00 07/15/16 08:32 Hydromorphone HCl (Dilaudid Pf Inj) 1 mg Q2H PRN IV PAIN 6-10 07/14/16 18:00 07/15/16 08:32 Hydromorphone HCl 0.5 mg 0.5 mg Q2H PRN IV PAIN 1-5 07/14/16 18:00 07/14/16 17:42 Levofloxacin/ Dextrose (Levaquin 750 Mg Premix Inj) 150 ml @ 100 mls/hr Q24H IV 07/14/16 20:00 07/14/16 20:49 Objective Remarks GENERAL: Young woman, lying in bed in nad. SKIN: Warm and dry. HEAD: Normocephalic. EYES: No injection or drainage. NECK: Supple, trachea midline. CARDIOVASCULAR: Regular rate and rhythm RESPIRATORY: Breath sounds equal bilaterally. No accessory muscle use. GASTROINTESTINAL: Abdomen soft, non-tender, nondistended. EXTREMITIES: No cyanosis, no edema MUSCULOSKELETAL: Adequate muscle tone. NEUROLOGICAL: awake and alert, normal speech. able to move extremities. Assessment/Plan Problem List: (1) Sickle cell crisis Status: Acute Plan: --continue supportive care with IVF, pain management with IV dilaudid --monitor LDH, retic count, bilirubin levels (2) Febrile syndrome Status: Acute Plan: CXR shows pneumonitis, repeat CXR shows stable to worsening disease neg flu BC pending u/a neg --on IV Levaquin Assessment 20y/o with history of sickle cell disease who presents with sickle cell crises. Plan 1. continue supportive care 2. patient has worsening CXR, rising LDH. will plan RBC exchange today. Attending Statement The exam, history, and the medical decision-making described in the above note were completed with the assistance of the mid-level provider. I reviewed and agree with the findings presented. I attest that I had a [id number] encounter with the patient on the same day, and personally performed and documented my assessment and findings in the medical record. Peripheral smear reviewed ----abundant sickle cells Hemolysis labs worsening/X-ray with worsening pneumonitis. Will proceed with exchange transfusion, spoke with [facility]. Orders signed. FCR 30%. Goal Hematocrit 21 % Check LDH/HAPTO/Bili components daily supportive care Incentive spirometry pain control d/w RN Time spent in evaluating patient and coordinating care 30 minutes Tiffany Santana Jul 15, 2016 09:54 Garth Hogan MD Jul 15, 2016 22:29
[2016-07-15 10:40] LABS: BANDS 2 % (0-6); BASOPHILS 1 % (0-2); CORRECTED NUCLEATED RBC 3 /100 WBC (0-0); NEUTROPHIL # MANUAL DIFF 8.8 TH/MM3 (1.8-7.7); PLATELET ESTIMATE SMEAR NORMAL (NORMAL); PLATELET MORPHOLOGY NORMAL (NORMAL); POLYCHROMASIA 2.3 % (0.0-1.9); POLYS (SEG NEUTROPHILS) 51 % (16-70); SCAN/DIFF FINAL DIFF MANUAL; SICKLE CELLS 1+ (NORMAL); TARGET CELLS 1+ (NORMAL); WBC DIFF SAMPLE 100
--- NOTE | 2016-07-15 11:41 | HHI.PR ---
Subjective Remarks appears comfortable some low back discomfort Objective Vitals Vital Signs Date Time Temp Pulse Resp B/P Pulse Ox O2 Delivery O2 Flow Rate FiO2 07/15/16 08:00 98.8 73 18 119/63 93 07/15/16 04:00 98.1 65 16 128/80 96 07/15/16 00:00 99.2 87 17 136/80 94 07/14/16 20:00 99.7 82 16 145/82 97 07/14/16 20:00 86 07/14/16 16:00 99.6 72 20 115/74 96 07/14/16 12:04 98.9 84 16 111/67 93 I/O 07/14/16 07/14/16 07/14/16 07/15/16 07/15/16 07/15/16 07:00 15:00 23:00 07:00 15:00 23:00 Intake Total 1119 ml 340 ml 1167 ml 1440 ml Balance 1119 ml 340 ml 1167 ml 1440 ml Intake Oral 240 ml 340 ml 240 ml 360 ml IV Total 879 ml 927 ml 1080 ml # Voids 4 2 1 3 # Bowel Movements 0 0 0 0 Result Diagram: 07/15/16 0620 07/15/16 0620 Imaging Last Impressions Chest X-Ray 07/15/16 06 Signed Impressions: Service Date/Time: July 05:43 - CONCLUSION: 1. Ill- defined basilar airspace disease stable to slightly increased from July 13. Mild cardiomegaly. 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 Hematology ff- plan for RBC exchange today Acute anemia- on chronic H and H stable received 1 unit RBC 07/14 ordered for PICC placement today Fever leukocytosis- may be from crisis- T down Pneumonitis on XR UA negative ff Blood cultures negative so far started on IV Levaquin 07/14 reinforced Incentive spirometry HTN: BP 160's on arrival, likely compounded by pain complaints. better. Will monitor. DVT Prophylaxis: SCD/Teds. Social work for d/c planning as needed. encourage out of bed/activity Migel Johnson MD Jul 15, 2016 11:41
--- NOTE | 2016-07-15 14:23 | PD.RAD ---
Post Procedure Progress Note Pre Procedure Diagnosis: (1) Sickle cell crisis Post Procedure Diagnosis: (1) Sickle cell crisis Procedure Date: Jul 15, 2016 Supervising Radiologist: Pancho Aguirre Proceduralist/Assist: Winter Vasquez RT(R), RT Jesse(R)() Anesthesia: Local Plan of Activity Patient to Unit: Nursing Unit Patient Condition: Good See PACS Report for procedural detail/treatment Central Venous Access Device Procedure 1 Right Internal Jugular Hemodialysis Catheter Non-Tunneled Placement dual lumen Pancho Aguirre MD Jul 15, 2016 14:23
[2016-07-15] MEDS ORDERED: HEPARIN SODIUM - IV 10,000 UNITS/10 ML VIAL IVF PRN (14:30)
[2016-07-15] MEDS ORDERED: SODIUM CHLORIDE 0.9% FLUSH 5 ML FLUSH IVF PRN (14:30)
[2016-07-15] MEDS ORDERED: CALCIUM GLUCONATE 1 GM/NS 150 ML IV ONE ×2 (14:30)
[2016-07-15] MEDS ORDERED: diphenhydrAMINE HCL 50 MG/ML VIAL IV PUSH PRN (14:30)
[2016-07-15] MEDS ORDERED: SODIUM CHLORIDE 0.9% 10 ML FLUSH IV FLUSH PRN ×2 (14:30→20:45)
[2016-07-15] MEDS ORDERED: SODIUM CHLOR 0.9% 1000 ML IV ONE (14:30)
[2016-07-15] MEDS ORDERED: ANTICOAGULANT CITRATE DEXTROSE SOLN-A 1L OTHER ONE (14:30)
[2016-07-15] MEDS ORDERED: CALCIUM GLUCONATE INJ 2 GM in SODIUM CHLORIDE 0.9% INJ 100 ML IV ONE (15:08)
--- NOTE | 2016-07-15 15:31 | RADRPT ---
EXAM DATE/TIME: 07/15/2016 13:34 [facility] COMPARISON: No previous studies available for comparison. INDICATIONS : Patient with history of sickle cell disease in need of dialysis catheter placement. MEDICAL HISTORY : Sickle cell disease SURGICAL HISTORY : Cholecystectomy, Liver surgery ENCOUNTER: Initial ACUITY: 4-6 days PAIN SCORE: 0/10 FLUORO TIME: 0.2 minutes IMAGE SERIES: 0 ACCESS: Right internal jugular vein DEVICE(S): 1.) 14 Macedonian dual lumen 15 cm Vas Cath PROCEDURE : 1. Ultrasound guided venipuncture. 2. Fluoroscopic guidance. 3. Central line placement. The risks, benefits and alternatives to the procedure were explained and verbal and written consent w as obtained. The site was prepped in sterile fashion. Full sterile technique was used, including ca p, mask, sterile gloves and gown and a large sterile sheet. Hand hygiene and 2% chlorhexidine prep w as utilized per protocol for cutaneous antisepsis with appropriate dry time for site. The skin and subcutaneous tissues were infiltrated with local anesthetic solution. A suitable site a reba the vein was selected with ultrasound and fluoroscopic guidance. A small incision was made. Th e vein was accessed under direct ultrasound visualization using the micropuncture technique. The corey ropuncture set was exchanged for a 0.035 wire. The tract was dilated. The catheter was advanced int o position under direct fluoroscopic visualization. The catheter was fixed in place with suture and a sterile dressing was applied. The patient tolerated the procedure well and there were no complications. CONCLUSION: Uncomplicated line placement as above. Pancho Aguirre MD on July 15, 2016 at 15:30 Board Certified Radiologist. This report was verified electronically.
--- NOTE | 2016-07-15 19:18 | RADRPT ---
EXAM DATE/TIME: 07/15/2016 18:44 [facility] COMPARISON: CHEST SINGLE AP, July 15, 2016, 5:43. INDICATIONS : Vascath placement. MEDICAL HISTORY : Sickle Cell disease. SURGICAL HISTORY : None. ENCOUNTER: Subsequent ACUITY: 1 day PAIN SCORE: 3/10 LOCATION: chest FINDINGS: The lungs are clear without infiltrate, nodule, or mass. There is no appreciable pleural effusion fo r technique. Heart and mediastinum are unremarkable. Right IJ line is present with tip overlapping t he expected region of the SVC. No definite pneumothorax is seen for technique. CONCLUSION: No acute cardiopulmonary disease. Claudia Olmos MD on July 15, 2016 at 19:16 Board Certified Radiologist. This report was verified electronically.
[2016-07-15] MEDS: LEVOFLOXACIN 750 MG PREMIX INJ 150 ML IV SCH (20:16)
[2016-07-15] MEDS ORDERED: HEPARIN SODIUM - 10,000 UNITS/ML 1ML VIAL IVF PRN (20:45)
[2016-07-16] VITALS: BP 126/73; PULSE 63; RESP 18; TEMP 99.5; O2SAT 100
[2016-07-16] MEDS: HYDROmorphone HCL PF 2 MG/ML VIAL IV PRN ×3 (01:18→13:02)
[2016-07-16 04:00] VITALS: BP 120/73; PULSE 64; RESP 16; TEMP 98.7; O2SAT 100
[2016-07-16] MEDS: SODIUM CHLOR 0.9% 1000 ML INJ 1,000 ML IV SCH ×2 (05:21→19:20)
[2016-07-16 06:59] LABS: RETIC % 13.5 % (0.4-3.0)
[2016-07-16 07:09] LABS: AUTOMATED NEUTROPHIL # 9.4 TH/MM3 (1.8-7.7); BASOPHIL # 0.1 TH/MM3 (0-0.2); BASOPHIL % 0.4 % (0.0-2.0); EOSINOPHIL # 0.4 TH/MM3 (0-0.4); EOSINOPHIL % 2.9 % (0.0-4.0); HEMATOCRIT 22.8 % (35.0-46.0); LYMPH % 14.3 % (9.0-44.0); LYMPHOCYTE # 1.9 TH/MM3 (1.0-4.8); MEAN CELL VOLUME 89.2 FL (80.0-100.0); MEAN CORPUSCULAR HEMOGLOBIN 30.4 PG (27.0-34.0); MEAN CORPUSCULAR HGB CONC 34.1 % (32.0-36.0); NEUT % 72.4 % (16.0-70.0); PLATELET COUNT 199 TH/MM3 (150-450); RED BLOOD COUNT 2.55 MIL/MM3 (4.00-5.30); RED CELL DISTRIBUTION WIDTH 21.3 % (11.6-17.2)
[2016-07-16 07:12] LABS: INDIRECT BILIRUBIN 4.7 MG/DL (0.0-0.8); TOTAL BILIRUBIN ADULT 5.3 MG/DL (0.2-1.0)
[2016-07-16 07:16] LABS: HEMO FLAGS AUTO DIFF
[2016-07-16 07:21] LABS: REVIEW FLAG FINAL
[2016-07-16 08:00] VITALS: BP 122/72; PULSE 70; RESP 18; TEMP 99.4; O2SAT 99
[2016-07-16 08:17] LABS: POLYCHROMASIA 2.1 % (0.0-1.9)
[2016-07-16 08:18] LABS: PLATELET ESTIMATE SMEAR NORMAL (NORMAL); PLATELET MORPHOLOGY NORMAL (NORMAL); SCAN/DIFF AUTO DIFF CONFIRMED
[2016-07-16] MEDS: FOLIC ACID 1 MG TAB PO SCH (08:55)
[2016-07-16] MEDS: SODIUM CHLORIDE 0.9% FLUSH 5 ML FLUSH FLUSH SCH (08:57)
[2016-07-16 12:00] VITALS: BP 122/87; PULSE 70; RESP 18; TEMP 97.9; O2SAT 100
--- NOTE | 2016-07-16 13:52 | HHI.PR ---
Subjective Remarks no chills or fever no complains no cough Objective Vitals Vital Signs Date Time Temp Pulse Resp B/P Pulse Ox O2 Delivery O2 Flow Rate FiO2 07/16/16 08:00 99.4 70 18 122/72 99 07/16/16 04:00 98.7 64 16 120/73 100 07/16/16 00:00 99.5 63 18 126/73 100 07/15/16 21:20 98.5 65 20 157/96 100 07/15/16 20:00 98.2 80 20 145/93 100 07/15/16 19:34 07/15/16 16:15 98.6 72 20 136/91 91 I/O 07/15/16 07/15/16 07/15/16 07/16/16 07/16/16 07/16/16 07:00 15:00 23:00 07:00 15:00 23:00 Intake Total 1440 ml 2324 ml 649 ml Balance 1440 ml 2324 ml 649 ml Intake Oral 360 ml 720 ml 480 ml IV Total 1080 ml 1604 ml 169 ml # Voids 3 3 4 # Bowel Movements 0 0 0 Result Diagram: 07/16/16 0605 07/15/16 0620 Imaging Last Impressions Chest X-Ray 07/15/16 0600 Signed Impressions: Service Date/Time: July 05:43 - CONCLUSION: 1. Ill- defined basilar airspace disease stable to slightly increased from July 13. Mild cardiomegaly. Edenilson Franklin MD Catheter Placement X-Ray 07/15/16 0000 Signed Impressions: Service Date/Time: July 13:34 - CONCLUSION: Uncomplicated line placement as above. Pancho Aguirre MD Objective Remarks awake and alert no nuchal rigidity lungs decreased breath sounds, no rales or wheezes regular rhythm abdomen soft, nontender extremities no edema, no calf swelling neuro exam- non focal A/P Problem List: (1) Sickle cell crisis ICD Code: D57.00 Status: Acute (2) Intractable pain ICD Code: R52 Status: Acute (3) HTN (hypertension) ICD Code: I10 Status: Acute Assessment and Plan 20 years old female here from [place] - going to school in [facility] taking [employer] on chronic pain meds- Percocet 5/325 and folic acid Sickle Cell Disease: w/ Acute Sickle Cell Crisis, IVF for hydration, Dilaudid IV, Benadryl IV prn, Folic Acid. Hematology ff- had RBC exchange 3/ Acute anemia- on chronic H and H stable received 1 unit RBC 07/14 Fever leukocytosis- may be from crisis- T down Pneumonitis on XR UA negative ff Blood cultures negative so far started on IV Levaquin 07/14- change to po on discharge reinforced Incentive spirometry HTN: BP 160's on arrival, likely compounded by pain complaints. better. Will monitor. DVT Prophylaxis: SCD/Teds. Social work for d/c planning as needed. up and ambulating DC today if cleared with Migel Silva MD Jul 16, 2016 13:52
--- NOTE | 2016-07-16 14:15 | PD.ONC.PN ---
Subjective Subjective Remarks Tmax 99.5 overnight. Pt resting in bed watching TV. She is asking when the Vascath can be removed. She states her pain is much improved in her back. No chest pain, no SOB. Objective Data Date Time Temp Pulse Resp B/P Pulse Ox O2 Delivery O2 Flow Rate FiO2 07/16/16 08:00 99.4 70 18 122/72 99 07/16/16 04:00 98.7 64 16 120/73 100 07/16/16 00:00 99.5 63 18 126/73 100 07/15/16 21:20 98.5 65 20 157/96 100 07/15/16 20:00 98.2 80 20 145/93 100 07/15/16 19:34 07/15/16 16:15 98.6 72 20 136/91 91 07/16/16 07/16/16 07/16/16 07:00 15:00 23:00 Intake Total 649 ml Balance 649 ml Result Diagram: 07/16/16 0605 07/15/16 0620 Laboratory Results Laboratory Tests Test 07/15/16 07/15/16 07/16/16 14:27 20:50 06:05 Blood Type O POSITIVE Crossmatch Leukocyte-Reduced Red Blood Cells Blood Bank Comment Lactate Dehydrogenase 499 U/L 409 U/L White Blood Count 13.0 TH/MM3 Red Blood Count 2.55 MIL/MM3 Hemoglobin 7.8 GM/DL Hematocrit 22.8 % Mean Corpuscular Volume 89.2 FL Mean Corpuscular Hemoglobin 30.4 PG Mean Corpuscular Hemoglobin 34.1 % Concent Red Cell Distribution Width 21.3 % Platelet Count 199 TH/MM3 Mean Platelet Volume 8.8 FL Neutrophils (%) (Auto) 72.4 % Lymphocytes (%) (Auto) 14.3 % Monocytes (%) (Auto) 10.0 % Eosinophils (%) (Auto) 2.9 % Basophils (%) (Auto) 0.4 % Neutrophils # (Auto) 9.4 TH/MM3 Lymphocytes # (Auto) 1.9 TH/MM3 Monocytes # (Auto) 1.3 TH/MM3 Eosinophils # (Auto) 0.4 TH/MM3 Basophils # (Auto) 0.1 TH/MM3 CBC Comment AUTO DIFF Differential Comment AUTO DIFF CONFIRMED Platelet Estimate NORMAL Platelet Morphology Comment NORMAL Polychromasia 2.1 % Reticulocyte Count 13.5 % Absolute Reticulocyte Count 344.8 MIL/L Total Bilirubin 5.3 MG/DL Direct Bilirubin 0.6 MG/DL Indirect Bilirubin 4.7 MG/DL Aspartate Amino Transf 21 U/L (AST/SGOT) Alanine Aminotransferase 14 U/L (ALT/SGPT) Alkaline Phosphatase 62 U/L Total Protein 6.8 GM/DL Albumin 3.1 GM/DL Culture Results Microbiology Date/Time Procedure Status Source Growth 07/13/16 20:57 Aerobic Blood Culture - Preliminary Resulted Blood Peripheral NO GROWTH IN 3 DAYS 07/13/16 20:57 Anaerobic Blood Culture - Preliminary Resulted Blood Peripheral NO GROWTH IN 3 DAYS 07/13/16 21:05 Aerobic Blood Culture - Preliminary Resulted Blood Peripheral NO GROWTH IN 3 DAYS 07/13/16 21:05 Anaerobic Blood Culture - Preliminary Resulted Blood Peripheral NO GROWTH IN 3 DAYS 07/14/16 03:55 Influenza Types A,B Antigen (SIOBHAN) - Final Complete Nasal Washing NEGATIVE FOR FLU A AND B ANTIGEN.... Administered Medications Medications (Trade) Dose Ordered Sig/Arjun Route PRN Reason Start Time Stop Time Status Last Admin Dose Admin Sodium Chloride (NS 1000 ml Inj) 1,000 ml @ 150 mls/hr Q6H40M IV 07/12/16 02:00 07/15/16 08:37 IV Flush (NS Flush) 2 ml UNSCH PRN FLUSH FLUSH AFTER USING IV ACCESS 07/12/16 02:00 07/12/16 06:35 IV Flush (NS Flush) 2 ml BID FLUSH 07/12/16 09:00 07/16/16 08:57 Ondansetron HCl (Zofran Inj) 4 mg Q6H PRN IVP NAUSEA OR VOMITING 07/12/16 02:00 07/12/16 17:15 Acetaminophen (Tylenol) 650 mg Q6H PRN PO FEVER 07/12/16 02:00 07/13/16 15:36 Folic Acid (Folate) 1 mg DAILY PO 07/12/16 09:00 07/16/16 08:55 Hydromorphone HCl (Dilaudid Pf Inj) 1 mg Q2H PRN IV PAIN 6-10 07/14/16 18:00 07/16/16 13:02 Hydromorphone HCl 0.5 mg 0.5 mg Q2H PRN IV PAIN 1-5 07/14/16 18:00 07/14/16 17:42 Levofloxacin/ Dextrose (Levaquin 750 Mg Premix Inj) 150 ml @ 100 mls/hr Q24H IV 07/14/16 20:00 07/15/16 20:16 Diphenhydramine HCl (Benadryl Inj) 25 mg UNSCH PRN IV PUSH ALLERGIC REACTION 07/15/16 14:30 07/17/16 14:31 07/15/16 20:44 Heparin Sodium (Porcine) (Heparin Inj) 5,000 units UNSCH PRN IVF FLUSH AFTER USING IV ACCESS 07/15/16 20:45 07/15/16 23:05 Objective Remarks GENERAL: Younger female lying in bed watching TV. SKIN: Warm and dry. No oozing from Vascath. HEAD: Normocephalic. EYES: No injection or drainage. NECK: Supple, trachea midline. CARDIOVASCULAR: Regular rate and rhythm without murmurs. RESPIRATORY: Breath sounds equal bilaterally. No accessory muscle use. GASTROINTESTINAL: Abdomen soft, non-tender, nondistended. EXTREMITIES: No edema. NEUROLOGICAL: No obvious focal deficit. Awake, alert, and oriented x3. PSYCHIATRIC: Flat affect. Assessment/Plan Problem List: (1) Sickle cell crisis Status: Acute Plan: --continue supportive care with IVF. Will transition IV pain medication to po. --LDH, Bilirubin improved. (2) Febrile syndrome Status: Acute Plan: CXR shows pneumonitis, repeat CXR shows stable to worsening disease neg flu BC pending u/a neg --on IV Levaquin Assessment 20y/o with history of sickle cell disease who presents with sickle cell crises. Plan 1. RBC exchange yesterday with good results. Pain improved, LDH, total bilirubin improved. 2. D/C Vascath tomorrow after am labs. 3. Transition IV pain meds to po medications. Attending Statement The exam, history, and the medical decision-making described in the above note were completed with the assistance of the mid-level provider. I reviewed and agree with the findings presented. I attest that I had a [id number] encounter with the patient on the same day, and personally performed and documented my assessment and findings in the medical record. Stephanie Currie Jul 16, 2016 14:14 Garth Hogan MD Jul 17, 2016 00:20
[2016-07-16 16:00] VITALS: BP 143/91; PULSE 65; RESP 19; TEMP 98.4; O2SAT 98
[2016-07-16] MEDS ORDERED: oxyCODONE/ACETAMINOPHEN 5 MG/325 MG TAB PO PRN (16:30)
[2016-07-16] MEDS ORDERED: LEVA750T PO (16:32)
--- NOTE | 2016-07-16 16:34 | HHI.DS ---
Discharge Summary Admission Date Jul 12, 2016 at 01:42 Discharge Date: Jul 16, 2016 Admitting Diagnosis sickle cell crisis and intractable pain (1) Sickle cell crisis ICD Code: D57.00 Diagnosis: Principal (2) Intractable pain ICD Code: R52 Diagnosis: Principal (3) HTN (hypertension) ICD Code: I10 Diagnosis: Secondary Procedures /- VAS cath placement Brief History - From Admission This is a 20-year-old female with a PMH of Sickle Cell Disease who presented to the ER with complaints of generalized pain typical of her sickle cell crises x2 days. Has been taking home pain medication w/ minimal relief. Denies fever, chills, cough or SOB. On arrival, BP 163/75, HR 126, O2 sat 97% on RA, Afebrile. WBC 25. Hgb 8.2. Retic 9.3. S/p multiple doses of Dilaudid IV and Benadryl IV w/ minimal improvement. On Folic Acid at home, no local Energy Economist as pt normally lives in [place], currently at [employer] school. CBC/BMP: 07/16/16 0605 07/15/16 0620 Significant Findings Laboratory Tests Test 07/13/16 07/14/16 07/14/16 07/14/16 23:33 04:17 11:30 16:00 Urine Protein 30 mg/dL (NEG-TRACE) Urine Ketones 10 mg/dL (NEG) White Blood Count 21.0 TH/MM3 (4.0-11.0) Red Blood Count 1.51 MIL/MM3 (4.00-5.30) Hemoglobin 5.6 GM/DL 7.7 GM/DL (11.6-15.3) (11.6-15.3) Hematocrit 16.1 % 22.2 % (35.0-46.0) (35.0-46.0) Mean Corpuscular Volume 106.6 FL (80.0-100.0) Mean Corpuscular Hemoglobin 37.4 PG (27.0-34.0) Red Cell Distribution Width 19.1 % (11.6-17.2) Neutrophils (%) (Auto) 81.6 % (16.0-70.0) Lymphocytes (%) (Auto) 7.7 % (9.0-44.0) Monocytes (%) (Auto) 10.2 % (0.0-8.0) Neutrophils # (Auto) 17.1 TH/MM3 (1.8-7.7) Monocytes # (Auto) 2.1 TH/MM3 (0-0.9) Sickle Cells 1+ (NORMAL) Blood Urea Nitrogen 6 MG/DL (7-18) Creatinine 0.47 MG/DL (0.50-1.00) Calcium Level 8.3 MG/DL (8.5-10.1) Total Bilirubin 10.1 MG/DL (0.2-1.0) Direct Bilirubin 1.0 MG/DL (0.0-0.2) Indirect Bilirubin 9.1 MG/DL (0.0-0.8) Lactate Dehydrogenase 452 U/L (84-246) Albumin 3.1 GM/DL (3.4-5.0) Test 07/15/16 07/15/16 07/16/16 06:20 20:50 06:05 White Blood Count 16.6 TH/MM3 13.0 TH/MM3 (4.0-11.0) (4.0-11.0) Red Blood Count 1.99 MIL/MM3 2.55 MIL/MM3 (4.00-5.30) (4.00-5.30) Hemoglobin 7.1 GM/DL 7.8 GM/DL (11.6-15.3) (11.6-15.3) Hematocrit 20.7 % 22.8 % (35.0-46.0) (35.0-46.0) Mean Corpuscular Volume 103.9 FL (80.0-100.0) Mean Corpuscular Hemoglobin 35.7 PG (27.0-34.0) Red Cell Distribution Width 21.5 % 21.3 % (11.6-17.2) (11.6-17.2) Monocytes (%) (Auto) 8.4 % (0.0-8.0) 10.0 % (0.0-8.0) Neutrophils # (Auto) 10.6 TH/MM3 9.4 TH/MM3 (1.8-7.7) (1.8-7.7) Monocytes # (Auto) 1.4 TH/MM3 1.3 TH/MM3 (0-0.9) (0-0.9) Monocytes % 9 % (0-8) Neutrophils # (Manual) 8.8 TH/MM3 (1.8-7.7) Nucleated Red Blood Cells 3 /100 WBC (0-0) Polychromasia 2.3 % (0.0-1.9) 2.1 % (0.0-1.9) Sickle Cells 1+ (NORMAL) Target Cells 1+ (NORMAL) Reticulocyte Count 11.6 % 13.5 % (0.4-3.0) (0.4-3.0) Absolute Reticulocyte Count 221.3 MIL/L 344.8 MIL/L (20.0-150.0) (20.0-150.0) Blood Urea Nitrogen 5 MG/DL (7-18) Creatinine 0.41 MG/DL (0.50-1.00) Random Glucose 68 MG/DL (74-106) Total Bilirubin 7.6 MG/DL 5.3 MG/DL (0.2-1.0) (0.2-1.0) Direct Bilirubin 0.6 MG/DL 0.6 MG/DL (0.0-0.2) (0.0-0.2) Indirect Bilirubin 7.0 MG/DL 4.7 MG/DL (0.0-0.8) (0.0-0.8) Lactate Dehydrogenase 532 U/L 499 U/L 409 U/L (84-246) (84-246) (84-246) Neutrophils (%) (Auto) 72.4 % (16.0-70.0) Albumin 3.1 GM/DL (3.4-5.0) Imaging Last Impressions Chest X-Ray 07/15/16 0600 Signed Impressions: Service Date/Time: July 05:43 - CONCLUSION: 1. Ill- defined basilar airspace disease stable to slightly increased from July 13. Mild cardiomegaly. Edenilson Franklin MD Catheter Placement X-Ray 07/15/16 0000 Signed Impressions: Service Date/Time: July 13:34 - CONCLUSION: Uncomplicated line placement as above. Pancho Aguirre MD PE at Discharge awake and alert no nuchal rigidity lungs decreased breath sounds, no rales or wheezes regular rhythm abdomen soft, nontender extremities no edema, no calf swelling neuro exam- non focal Pt update on day of discharge afebrile, no pain complains comfortable wanting to go home Hospital Course 20 years old female here from [place] - [facility] [employer] [employer] [facility] [employer] on chronic pain meds- Percocet 5/325 and folic acid Sickle Cell Disease: w/ Acute Sickle Cell Crisis, IVF for hydration, Dilaudid IV, Benadryl IV prn, Folic Acid. Hematology ff- had RBC exchange /- with improvement of symptoms Acute anemia- on chronic H and H stable received 1 unit RBC 07/14 Fever leukocytosis- may be from crisis- T down Pneumonitis on XR UA negative ff Blood cultures negative so far started on IV Levaquin 07/14- change to po on discharge for x 5 days more reinforced Incentive spirometry HTN: due to pain. readings. better. Will monitor. DVT Prophylaxis: SCD/Teds. up and ambulating DC today if cleared with Dr. Hogan Pt Condition on Discharge: Fair Discharge Disposition: Discharge Home Discharge Time: <= 30 minutes Discharge Instructions DIET: Follow Instructions for: As Tolerated, No Restrictions Speech Therapy-Diet Recommends: Regular Activities you can perform: Weight Bearing as Linette Follow up Referrals: Oncology - 07/20/16 with NATHAN New Medications: Levofloxacin (Levaquin) 750 Mg Tab 750 MG PO DAILY Infection Days 5 TAB Continued Medications: Folic Acid (Folic Acid) 5 Mg Cap 1 MG PO DAILY Nutritional Supplement Ref 0 CAP Oxycodone-Acetaminophen (Percocet) 5-325 mg Tab 1 TAB PO Q4H PRN PAIN Ref 0 TAB Migel Johnson MD Jul 16, 2016 16:34 Migel Johnson MD Jul 16, 2016 16:34
[2016-07-16] MEDS ORDERED: LEVOFLOXACIN 750 MG TAB PO SCH (17:00)
--- NOTE | 2016-07-16 17:01 | PD.RAD ---
Post Procedure Progress Note Pre Procedure Diagnosis: (1) Sickle cell crisis Post Procedure Diagnosis: (1) Sickle cell crisis Procedure Date: Jul 16, 2016 Supervising Radiologist: Pancho Aguirre Proceduralist/Assist: RT Giovanni(R) Plan of Activity Patient to Unit: Nursing Unit Patient Condition: Good See PACS Report for procedural detail/treatment Central Venous Access Device Procedure 1 Right Internal Jugular Hemodialysis Catheter Non-Tunneled Removal dual lumen Pacnho Aguirre MD Jul 16, 2016 17:01
--- NOTE | 2016-07-16 17:15 | RADRPT ---
EXAM DATE/TIME: 07/16/2016 00:00 [facility] COMPARISON: No previous studies available for comparison. INDICATIONS : Patient with recent sickle cell crisis in need of vascath removal. MEDICAL HISTORY : 1.Sickle cell disease SURGICAL HISTORY : 1.Cholecystectomy 2.Liver surgery ENCOUNTER: Subsequent ACUITY: > 1 year PAIN SCORE: 0/10 IMAGE SERIES: Zero PROCEDURE : 1. Temporary central venous catheter removal. The prescribed catheter was removed intact and hemostasis was achieved with direct pressure. The sit e was dressed appropriately. The patient tolerated the procedure well. CONCLUSION: Uncomplicated catheter removal. Pancho Aguirre MD on July 16, 2016 at 17:13 Board Certified Radiologist. This report was verified electronically.
[2016-07-19 20:19] LABS: HEMOGLOBIN A 23.4 % (95.8-98.0); HEMOGLOBIN A2 3.2 % (2.0-3.3); HEMOGLOBIN F 7.6 % (0.0-0.9)
== END 2016-07-16 20:08 | disposition home or self-care (01) | DRG 811 ==
LOC: NEPC 21:19 → NEDA 07-12 01:42 → N06B 07-12 05:47
PROVIDERS: ADMIT Internal Medicine; ATTEND Internal Medicine
PROC: 30233N1 Transfusion of Nonautologous Red Blood Cells into Peripheral Vein, Percutaneous Approach (ICD-10-PCS; 2016-07-14)
PROC: 05HM33Z Insertion of Infusion Device into Right Internal Jugular Vein, Percutaneous Approach (ICD-10-PCS; principal; 2016-07-15)
PROC: 05PYX3Z Removal of Infusion Device from Upper Vein, External Approach (ICD-10-PCS; 2016-07-16)
DX: D57.00 Hb-SS disease with crisis, unspecified (principal); J18.9 Pneumonia, unspecified organism; I10 Essential (primary) hypertension
CPT/HCPCS: 36430; 36512; 36556; 71010; 71020; 76937; 77001; 80048; 80053; 80076; 81001; 82247; 82248; 83020; 83615; 85007; 85014; 85018; 85025; 85027; 85044; 85660; 86850; 86900; 86901; 86920; 87040; 87804; 93005; 94150; 96361; 96374; 96375; 96376; C1752; J1170; J1200; J1644; J1956; J2405; J7030; P9016

== ENCOUNTER 2017-07-10 18:28 | Emergency (ER) | payer OTHER ==
[~2017-07-10] VITALS: Ht 165.1 cm; Wt 50.0 kg
[~2017-07-10 18:28] MED LIST: FOLI5CAP PO; LEVA750T PO; PERC5TAB12 PO
[2017-07-10] MEDS ORDERED: SODIUM CHLOR 0.9% 1000 ML INJ 1,000 ML IV ONE (19:03)
[2017-07-10 19:15] VITALS: RESP 16; O2SAT 96
[2017-07-10] MEDS ORDERED: HYDROmorphone HCL PF 2 MG/ML VIAL IVS ONE (19:15)
[2017-07-10] MEDS ORDERED: KETOROLAC TROMETHAMINE 30 MG/ML (IVP) VIAL IV PUSH ONE (19:15)
[2017-07-10] MEDS ORDERED: SODIUM CHLORIDE 0.9% FLUSH 10 ML FLUSH IVF PRN (19:15)
--- NOTE | 2017-07-10 19:40 | RADRPT ---
EXAM DATE/TIME: 07/10/2017 19:19 [facility] COMPARISON: No previous studies available for comparison. INDICATIONS : Short of breath. MEDICAL HISTORY : Sickle Cell disease. SURGICAL HISTORY : None. ENCOUNTER: Initial ACUITY: 1 day PAIN SCORE: 0/10 LOCATION: Bilateral chest FINDINGS: A single view of the chest demonstrates the lungs to be symmetrically aerated without evidence of mas s, infiltrate or effusion. The cardiomediastinal contours are prominent. Osseous structures are int act. CONCLUSION: 1. Mild cardiomegaly. No active disease. Edenilson Franklin MD on July 10, 2017 at 19:39 Board Certified Radiologist. This report was verified electronically.
[2017-07-10 19:54] LABS: AUTOMATED NEUTROPHIL # 9.2 TH/MM3 (1.8-7.7); BASOPHIL # 0.2 TH/MM3 (0-0.2); BASOPHIL % 1.4 % (0.0-2.0); EOSINOPHIL # 0.5 TH/MM3 (0-0.4); EOSINOPHIL % 4.1 % (0.0-4.0); HEMATOCRIT 21.5 % (35.0-46.0); HEMOGLOBIN 7.6 GM/DL (11.6-15.3); LYMPH % 18.1 % (9.0-44.0); LYMPHOCYTE # 2.3 TH/MM3 (1.0-4.8); MEAN CORPUSCULAR HEMOGLOBIN 36.8 PG (27.0-34.0); MEAN CORPUSCULAR HGB CONC 35.4 % (32.0-36.0); MEAN PLATELET VOLUME 8.1 FL (7.0-11.0); MONO % 5.1 % (0.0-8.0); MONOCYTE # 0.7 TH/MM3 (0-0.9); NEUT % 71.3 % (16.0-70.0); PLATELET COUNT 613 TH/MM3 (150-450); RED BLOOD COUNT 2.06 MIL/MM3 (4.00-5.30); RED CELL DISTRIBUTION WIDTH 25.4 % (11.6-17.2); RETIC % 10.1 % (0.4-3.0); WHITE BLOOD COUNT 12.9 TH/MM3 (4.0-11.0)
--- NOTE | 2017-07-10 19:54 | PD ---
HPI . Sickle cell crisis Chief Complaint: Sickle Cell Time Seen by Provider: 19:00 Travel History International Travel<30 days: No Contact w/Intl Traveler<30days: No Traveled to known affect area: No History of Present Illness HPI 21-year-old female with known sickle cell, complains of having chest pain for the past several days now developing severe back pain. Patient denies any recent illnesses, denies having fever, no significant travel history, no significant ill contacts. Patient has no cough has mild shortness of breath no hemoptysis. Patient denies any joint swelling. PFSH Past Medical History Narrative Medical Past medical history reviewed Autoimmune Disease: No Depression: Yes Cancer: No Cardiovascular Problems: No Diabetes: No Endocrine: No Genitourinary: No Immune Disorder: No Musculoskeletal: No Neurologic: No Psychiatric: Yes Reproductive: No Respiratory: No Immunizations Current: Yes Sickle Cell Disease: Yes Thyroid Disease: No ?: Not Past Surgical History Abdominal Surgery: Yes (mary and liver bx) Cardiac Surgery: No Cholecystectomy: Yes Ear Surgery: No Endocrine Surgery: No Eye Surgery: No Genitourinary Surgery: No Gynecologic Surgery: No Oral Surgery: No Thoracic Surgery: No Social History Alcohol Use: No Tobacco Use: No Substance Use: Yes Allergies-Medications (Allergen,Severity, Reaction): Coded Allergies: No Known Allergies (Unverified Adverse Reaction, Unknown, 07/10/17) Reported Meds & Prescriptions Reported Meds & Active Scripts Active Levaquin (Levofloxacin) 750 Mg Tab 750 Mg PO DAILY 5 Days Reported Percocet (Oxycodone-Acetaminophen) 5-325 mg Tab 1 Tab PO Q4H PRN Folic Acid 5 Mg Cap 1 Mg PO DAILY Narrative Medication Allergies and medications reviewed Review of Systems General / Constitutional: No: Fever, Chills Eyes: No: Diploplia, Blurred Vision, Photophobia, Visual changes HENT: No: Headaches, Lightheadedness, Neck Stiffness, Neck Pain Cardiovascular: No: Chest Pain or Discomfort, Palpitations, Irregular Rhythm, Tachycardia Respiratory: Positive: Shortness of Breath, Pleuritic Pain, No: Cough, Wheezing , Sneezing, Orthopnea, Hemoptysis, Stridor, Night Sweats Gastrointestinal: No: Nausea, Vomiting, Diarrhea, Abdominal Pain, Hematemesis, Hematochezia Genitourinary: No: Urgency, Frequency, Dysuria, Hematuria, Dysmenorrhea Musculoskeletal: Positive: Myalgias, Arthralgias, Pain, No: Limited ROM, Weakness, Cramping, Edema Skin: No Rash Neurologic: No: Weakness, Headache, Seizures Psychiatric: No: Depression Endocrine: No: Polydipsia Hematologic/Lymphatic: No: Easy Bruising Physical Exam Narrative GENERAL: Awake and alert oriented 3 patient appears uncomfortable but is in no acute distress. SKIN: Warm and dry. Color is normal no divergent cyanosis or pallor HEAD: Atraumatic. Normocephalic. EYES: Pupils equal and round. Positive scleral icterus no injection or drainage. No nystagmus ENT: No nasal bleeding or discharge. Mucous membranes pink and moist. NECK: Trachea midline. No JVD. Supple full range of motion CARDIOVASCULAR: Regular rate and rhythm. S1-S2 no murmurs rubs or gallops RESPIRATORY: No accessory muscle use. Clear to auscultation. Breath sounds equal bilaterally. GASTROINTESTINAL: Abdomen soft, non-tender, nondistended. Hepatic and splenic margins not palpable. MUSCULOSKELETAL: Extremities without clubbing, cyanosis, or edema. No obvious deformities. NEUROLOGICAL: Awake and alert. No obvious cranial nerve deficits. Motor grossly within normal limits. Five out of 5 muscle strength in the arms and legs. Normal speech. PSYCHIATRIC: Appropriate mood and affect; insight and judgment normal. Data Data Last Documented VS Vital Signs Date Time Temp Pulse Resp B/P (MAP) Pulse Ox O2 Delivery O2 Flow Rate FiO2 07/10/17 20:40 100 Nasal Cannula 2.00 07/10/17 19:15 84 07/10/17 19:15 16 Orders Orders C-Reactive Protein (Crp) (07/10/17 19:03) Complete Blood Count With Diff (07/10/17 19:03) Comprehensive Metabolic Panel (07/10/17 19:03) Retic Count (07/10/17 19:03) Urinalysis - C+S If Indicated (07/10/17 19:03) Blood Culture (07/10/17 19:03) Chest, Single Ap (07/10/17 19:03) Ecg Monitoring (07/10/17 19:03) Iv Access Insert/Monitor (07/10/17 19:03) Oximetry (07/10/17 19:03) Hydromorphone Pf Inj (Dilaudid Pf Inj) (07/10/17 19:15) Sodium Chloride 0.9% Flush (Ns Flush) (07/10/17 19:15) Sodium Chlor 0.9% 1000 Ml Inj (Ns 1000 M (07/10/17 19:03) Beta Hcg (Quant/Titer) (07/10/17 19:03) Ketorolac Inj (Toradol Inj) (07/10/17 19:15) Troponin I (07/10/17 19:03) Creatine Kinase (Cpk) (07/10/17 19:03) Electrocardiogram (07/10/17 ) Blood Gas Venous (Vbg) (07/10/17 19:57) Sodium Bicarbonate 8.4% Inj (Sodium Bica (07/10/17 20:45) Dextrose 5% In Wate 1000ml Inj (D5w 1000 (07/10/17 20:45) Piperacil-Tazo 4.5 Gm Premix (Zosyn 4.5 (07/10/17 20:45) Lactic Acid (07/10/17 20:33) Oxygen Administration (07/10/17 20:33) Ondansetron Inj (Zofran Inj) (07/10/17 20:45) Sodium Bicarbonate 8.4% Inj (Sodium Bica (07/10/17 20:52) Labs Laboratory Tests Test 07/10/17 19:10 07/10/17 20:17 07/10/17 20:45 White Blood Count 12.9 TH/MM3 Red Blood Count 2.06 MIL/MM3 Hemoglobin 7.6 GM/DL Hematocrit 21.5 % Mean Corpuscular Volume 104.0 FL Mean Corpuscular Hemoglobin 36.8 PG Mean Corpuscular Hemoglobin Concent 35.4 % Red Cell Distribution Width 25.4 % Platelet Count 613 TH/MM3 Mean Platelet Volume 8.1 FL Neutrophils (%) (Auto) 71.3 % Lymphocytes (%) (Auto) 18.1 % Monocytes (%) (Auto) 5.1 % Eosinophils (%) (Auto) 4.1 % Basophils (%) (Auto) 1.4 % Neutrophils # (Auto) 9.2 TH/MM3 Lymphocytes # (Auto) 2.3 TH/MM3 Monocytes # (Auto) 0.7 TH/MM3 Eosinophils # (Auto) 0.5 TH/MM3 Basophils # (Auto) 0.2 TH/MM3 CBC Comment AUTO DIFF Differential Total Cells Counted 100 Neutrophils % (Manual) 69 % Band Neutrophils % 1 % Lymphocytes % 19 % Monocytes % 7 % Eosinophils % 2 % Basophils % 1 % Neutrophils # (Manual) 9.2 TH/MM3 Myelocytes 1 % Nucleated Red Blood Cells 4 /100 WBC Differential Comment FINAL DIFF MANUAL Platelet Estimate HIGH Platelet Morphology Comment NORMAL Polychromasia 3.0 % Sickle Cells 2+ Target Cells 1+ [place] Bodies PRESENT Reticulocyte Count 10.1 % Absolute Reticulocyte Count 209.0 MIL/L Blood Urea Nitrogen 6 MG/DL Creatinine 0.64 MG/DL Random Glucose 105 MG/DL Total Protein 7.9 GM/DL Albumin 4.2 GM/DL Calcium Level 8.8 MG/DL Alkaline Phosphatase 125 U/L Aspartate Amino Transf (AST/SGOT) 82 U/L Alanine Aminotransferase (ALT/SGPT) 75 U/L Total Bilirubin 7.6 MG/DL Sodium Level 139 MEQ/L Potassium Level 4.3 MEQ/L Chloride Level 105 MEQ/L Carbon Dioxide Level 28.9 MEQ/L Anion Gap 5 MEQ/L Estimat Glomerular Filtration Rate 143 ML/MIN Total Creatine Kinase 73 U/L Troponin I LESS THAN 0.02 NG/ML C-Reactive Protein LESS THAN 0.29 MG/DL Human Chorionic Gonadotropin, Quant LESS THAN 1 MIU/ML Blood Gas Puncture Site IV Blood Gas Patient Temperature 98.6 Venous Blood pH 7.33 Venous Blood Partial Pressure CO2 42 mmHg Venous Blood Partial Pressure O2 52 mmHg Venous Blood HCO3 21 mmol/L Venous Blood Oxygen Saturation 71 % Venous Blood Oxygen Content 6.0 Vol % Venous Blood Base Excess -3.6 mmol/L Oxygen Delivery Device NASAL CANNULA Blood Gas Liter Flow 2 L/M Lactic Acid Level 1.5 mmol/L [facility] Medical Decision Making Medical Screen Exam Complete: Yes Emergency Medical Condition: Yes Medical Record Reviewed: Yes Differential Diagnosis Sickle cell crisis, sickle cell painful syndrome, sickle cell chest pain syndrome Narrative Course Premedications IV fluids being administered. Laboratory examinations pending Patient has mildly elevated white blood cell count 12.9. Patient is afebrile. Patient has negative chest x-ray, urinalysis pending., Patient has no symptoms of dysuria urgency frequency. Patient's reticulocyte count is 10.1, LFTs are mildly elevated consistent with prior history. Patient has had liver biopsy for workup for same. Patient feels markedly improved after IV fluids, pain medications, and supplemental oxygen. Patient requesting discharge. Diagnosis Primary Impression: Sickle cell crisis Patient Instructions: General Instructions, Sickle Cell Crisis (ED) Additional Instructions: Drink plenty of fluids as discussed. Pain medications as prescribed as needed. Follow-up with your survey interviewer/primary medical physician/[facility]. Return for worsening Scripts Tramadol (Ultram) 50 Mg Tab 50 MG PO Q8H Y for PAIN, #15 TAB 0 Refills Prov: Silver Guerra MD 07/10/17 Disposition: 01 DISCHARGE HOME Condition: Stable Silver Guerra MD Jul 10, 2017 19:54
[2017-07-10 20:05] LABS: ALT (GPT) 75 U/L (9-42)
[2017-07-10 20:15] LABS: ALBUMIN 4.2 GM/DL (3.4-5.0); ALKALINE PHOSPHATASE 125 U/L (45-117); AST (GOT) 82 U/L (16-38); BICARBONATE 28.9 MEQ/L (21.0-32.0); BLOOD UREA NITROGEN 6 MG/DL (7-18); C-REACTIVE PROTEIN LESS THAN 0.29 MG/DL (0.00-0.30); CALCIUM 8.8 MG/DL (8.5-10.1); CHLORIDE 105 MEQ/L (98-107); CREATININE 0.64 MG/DL (0.50-1.00); GLOMERULAR FILTRATION RATE 143 ML/MIN (>89); GLUCOSE,RANDOM 105 MG/DL (74-106); SODIUM (NA) 139 MEQ/L (136-145); TOTAL BILIRUBIN ADULT 7.6 MG/DL (0.2-1.0); TOTAL PROTEIN 7.9 GM/DL (6.4-8.2); TROPONIN I LESS THAN 0.02 NG/ML (0.02-0.05)
[2017-07-10 20:31] LABS: BANDS 1 % (0-6); BASOPHILS 1 % (0-2); CORRECTED NUCLEATED RBC 4 /100 WBC (0-0); LYMPHOCYTES 19 % (9-44); MONOCYTES 7 % (0-8); MYELOCYTES 1 % (0-0); NEUTROPHIL # MANUAL DIFF 9.2 TH/MM3 (1.8-7.7); NUCLEATED RED BLOOD CELL 4 (0-0); POLYS (SEG NEUTROPHILS) 69 % (16-70)
[2017-07-10 20:32] LABS: SICKLE CELLS 2+ (NORMAL); TARGET CELLS 1+ (NORMAL)
[2017-07-10 20:36] LABS: HOWELL-JOLLY BODIES PRESENT (NONE SEEN)
[2017-07-10] MEDS ORDERED: SODIUM BICARBONATE 8.4% INJ 50 MEQ/50 ML SYR IV PUSH ONE (20:45)
[2017-07-10] MEDS ORDERED: ONDANSETRON HCL 4 MG/2 ML VIAL IV PUSH ONE (20:45)
[2017-07-10] MEDS ORDERED: DEXTROSE 5% IN WATE 1000ML INJ 1,000 ML IV ONE (20:45)
[2017-07-10] MEDS ORDERED: PIPERACIL-TAZO 4.5 GM PREMIX 100 ML IV ONE (20:45)
[2017-07-10] MEDS ORDERED: SODIUM BICARBONATE 8.4% INJ 50 MEQ/50 ML SYR ONE (20:52)
[2017-07-10] MEDS ORDERED: TRAM50 PO (22:46)
[2017-07-11] VITALS: BP 112/59; PULSE 79; RESP 14; O2SAT 99
[2017-07-11] MEDS ORDERED: traMADol HCL 50 MG TAB PO ONE (00:45)
[2017-07-11] MEDS ORDERED: HYDR500C PO (06:30)
[2017-07-11] MEDS ORDERED: FOLI400T PO (06:30)
--- NOTE | 2017-07-11 14:36 | EKG ---
Date Performed: 07/10/2017 Time Performed: 20:27:42 PTAGE: 21 years EKG: Sinus rhythm NONSPECIFIC T-WAVE ABNORMALITY Probably normal for age BORDERLINE ECG PREVIOUS TRACING : 07/11/2016 23.18 DOCTOR: Parmjit Das Interpretating Date/Time 07/11/2017 14:34:30
== END 2017-07-11 01:25 | disposition home or self-care (01) ==
LOC: NEPC 18:28
DX: D57.00 Hb-SS disease with crisis, unspecified (principal); F32.9 Major depressive disorder, single episode, unspecified; R94.31 Abnormal electrocardiogram [ECG] [EKG]
CPT/HCPCS: 71045; 80053; 82550; 82805; 83605; 84484; 84702; 85007; 85027; 85044; 86140; 87040; 93005; 96361; 96365; 96375; J1170; J1885; J2405; J2543; J7030; J7070

== ENCOUNTER 2017-07-11 06:24 | Inpatient (IN) | payer OTHER ==
[~2017-07-11] VITALS: Ht 165.1 cm; Wt 56.0 kg
[2017-07-11] VITALS (7 sets, daily range): BP systolic 116–138; BP diastolic 56–80; PULSE 79–100; RESP 16–20; TEMP 98.2–98.8; O2SAT 92–97
[~2017-07-11 06:24] MED LIST changes: +TRAM50 PO
[2017-07-11] MEDS ORDERED: HYDR500C PO (06:30)
[2017-07-11] MEDS ORDERED: FOLI400T PO (06:30)
[2017-07-11] MEDS ORDERED: diphenhydrAMINE HCL 50 MG/ML VIAL IV PUSH ONE (07:30)
[2017-07-11] MEDS ORDERED: SODIUM CHLOR 0.9% 1000 ML INJ 1,000 ML IV ONE (07:30)
[2017-07-11] MEDS ORDERED: KETOROLAC TROMETHAMINE 30 MG/ML (IVP) VIAL IV PUSH ONE (07:30)
[2017-07-11] MEDS ORDERED: HYDROmorphone HCL PF 1 MG/ML VIAL IV PUSH ONE (07:45)
--- NOTE | 2017-07-11 08:02 | PD ---
HPI Chief Complaint: Sickle Cell Time Seen by Provider: 07:24 Travel History International Travel<30 days: No Contact w/Intl Traveler<30days: No Traveled to known affect area: No History of Present Illness HPI 21-year-old female history of sickle cell disease, presents here for the second time in 24 hours for pain. Patient was seen earlier this morning discharged at 1 AM for sickle cell pain crisis. Patient has a history of sickle cell disease. She denies any fevers, chills. She denies a productive cough. She does report chest pain. She also reports arm pain. Patient also reports her urine has been darker than normal. PFSH Past Medical History Autoimmune Disease: No Depression: Yes Cancer: No Cardiovascular Problems: No Diabetes: No Endocrine: No Gastrointestinal Disorders: No Genitourinary: No Immune Disorder: No Implanted Vascular Access Dvce: No Musculoskeletal: No Neurologic: No Psychiatric: Yes Reproductive: No Respiratory: No Immunizations Current: Yes Sickle Cell Disease: Yes Thyroid Disease: No ?: Not LMP: 07/05/17 Past Surgical History Abdominal Surgery: Yes (mary and liver bx) Cardiac Surgery: No Cholecystectomy: Yes Ear Surgery: No Endocrine Surgery: No Eye Surgery: No Genitourinary Surgery: No Gynecologic Surgery: No Neurologic Surgery: No Oral Surgery: No Thoracic Surgery: No Other Surgery: Yes Social History Alcohol Use: No Tobacco Use: No Substance Use: Yes Allergies-Medications (Allergen,Severity, Reaction): Coded Allergies: No Known Allergies (Unverified Adverse Reaction, Unknown, 07/11/17) Reported Meds & Prescriptions Reported Meds & Active Scripts Active Reported Folic Acid 0.4 Mg Tab 1 Mg PO DAILY Hydrea (Hydroxyurea) 500 Mg Cap 500 Mg PO DAILY Review of Systems Except as stated in HPI: all other systems reviewed are Neg General / Constitutional: No: Fever, Chills HENT: No: Headaches, Neck Pain Cardiovascular: Positive: Chest Pain or Discomfort, No: Palpitations, Irregular Rhythm Respiratory: No: Cough, Shortness of Breath Gastrointestinal: No: Nausea, Vomiting, Abdominal Pain Genitourinary: Positive: Other, No: Dysuria Musculoskeletal: No: Weakness (Darker urine than normal), Pain Skin: No Rash, No Lesions Neurologic: No: Weakness, Dizziness, Headache Psychiatric: No: Substance Abuse Physical Exam Narrative GENERAL: Well-developed well-nourished female with obvious icteric sclera. SKIN: Focused skin assessment warm/dry. HEAD: Atraumatic. Normocephalic. EYES: Positive scleral icterus. No injection or drainage. ENT: No nasal bleeding or discharge. Mucous membranes pink and moist. NECK: Trachea midline. Supple. CARDIOVASCULAR: Regular rate and rhythm. No murmur appreciated. RESPIRATORY: No accessory muscle use. Clear to auscultation. Breath sounds equal bilaterally. GASTROINTESTINAL: Abdomen soft, non-tender, nondistended. Hepatic and splenic margins not palpable. MUSCULOSKELETAL: No obvious deformities. Positive mild clubbing in her digits. No cyanosis. No edema. NEUROLOGICAL: Awake and alert. No obvious cranial nerve deficits. Motor grossly within normal limits. Normal speech. Data Data Last Documented VS Vital Signs Date Time Temp Pulse Resp B/P (MAP) Pulse Ox O2 Delivery O2 Flow Rate FiO2 07/11/17 07:48 93 18 138/80 (99) 97 Room Air 07/11/17 06:26 98.4 Orders Orders Iv Access Insert/Monitor (07/11/17 07:25) Ecg Monitoring (07/11/17 07:25) Oximetry (07/11/17 07:25) Type And Screen (07/11/17 07:25) Sodium Chlor 0.9% 1000 Ml Inj (Ns 1000 M (07/11/17 07:30) Diphenhydramine Inj (Benadryl Inj) (07/11/17 07:30) Ketorolac Inj (Toradol Inj) (07/11/17 07:30) Urinalysis - C+S If Indicated (07/11/17 07:36) Hydromorphone Pf Inj (Dilaudid Pf Inj) (07/11/17 08:15) Ondansetron Inj (Zofran Inj) (07/11/17 08:16) Complete Blood Count With Diff (07/11/17 09:10) Comprehensive Metabolic Panel (07/11/17 09:10) Sodium Chlor 0.9% 1000 Ml Inj (Ns 1000 M (07/11/17 09:15) Ondansetron Inj (Zofran Inj) (07/11/17 14:00) Morphine Inj (Morphine Inj) (07/11/17 09:15) Complete Blood Count With Diff (07/12/17 06:00) Ldh Serum (07/11/17 09:10) Vital Signs (Adult) NARESH.Q4H (07/11/17 09:10) Folic Acid (Folate) (07/11/17 09:15) Hydroxyurea (Hydrea) (07/11/17 09:15) Admit Order (Ed Use Only) (07/11/17 09:49) MDM Medical Decision Making Medical Screen Exam Complete: Yes Emergency Medical Condition: Yes Differential Diagnosis Sickle cell pain crisis versus chest pain syndrome versus metabolic derangement. Narrative Course 21-year-old female who is here previously within the last 12 hours, presents again with complaints of pain. Patient states that when she got home, shortly thereafter, she started experiencing pain in her arms worse on the left. The patient is with icteric sclera. She has been transfused in the past. She has been typed and crossed. She will be admitted to the hospital for pain control IV fluids and possible transfusion. The case was discussed with the [facility] hospitalist who will admit the patient to his service. Diagnosis Primary Impression: Sickle cell pain crisis Additional Impressions: Anemia Intractable pain Admitting Information Admitting Physician Requests: it Tate Bernal MD Jul 11, 2017 08:02
[2017-07-11] MEDS ORDERED: HYDROmorphone HCL PF 2 MG/ML VIAL IVS ONE (08:15)
[2017-07-11] MEDS ORDERED: ONDANSETRON HCL 4 MG/2 ML VIAL ONE (08:16)
[2017-07-11] MEDS: HYDROXYUREA 500 MG CAP PO SCH (09:15)
[2017-07-11] MEDS ORDERED: MORPHINE SULFATE 2 MG/ML INJ IV PUSH PRN ×2 (09:15→13:00)
[2017-07-11] MEDS: SODIUM CHLOR 0.9% 1000 ML INJ 1,000 ML IV SCH ×3 (10:12→21:26)
[2017-07-11] MEDS: FOLIC ACID 1 MG TAB PO SCH (10:13)
[2017-07-11 10:36] LABS: BACTERIA, URINE RARE /hpf; BILIRUBIN, URINE NEG (NEG); BLOOD, URINE NEG (NEG); GLUCOSE,URINE NEG (NEG); KETONE, URINE NEG (NEG); NITRITE,URINE NEG (NEG); SQUAMOUS EPITHELIAL CELL URINE 7 /hpf (0-5); URINE COLOR YELLOW (YELLW/STRAW); URINE LEUKOCYTE ESTERASE NEG (NEG)
[2017-07-11 11:50] LABS: AUTOMATED NEUTROPHIL # 16.6 TH/MM3 (1.8-7.7); BASOPHIL # 0.1 TH/MM3 (0-0.2); BASOPHIL % 0.6 % (0.0-2.0); EOSINOPHIL % 0.1 % (0.0-4.0); LYMPH % 7.7 % (9.0-44.0); LYMPHOCYTE # 1.5 TH/MM3 (1.0-4.8); MEAN CELL VOLUME 102.8 FL (80.0-100.0); MEAN CORPUSCULAR HEMOGLOBIN 37.5 PG (27.0-34.0); MEAN PLATELET VOLUME 7.5 FL (7.0-11.0); MONO % 8.3 % (0.0-8.0); MONOCYTE # 1.7 TH/MM3 (0-0.9); NEUT % 83.3 % (16.0-70.0); PLATELET COUNT 504 TH/MM3 (150-450); RED BLOOD COUNT 1.63 MIL/MM3 (4.00-5.30); WHITE BLOOD COUNT 19.9 TH/MM3 (4.0-11.0)
[2017-07-11 11:51] LABS: MEAN CORPUSCULAR HGB CONC 36.5 % (32.0-36.0)
[2017-07-11 11:55] LABS: HEMATOCRIT 16.8 % (35.0-46.0); HEMOGLOBIN 6.1 GM/DL (11.6-15.3)
[2017-07-11 12:09] LABS: ALBUMIN 3.5 GM/DL (3.4-5.0); ALKALINE PHOSPHATASE 109 U/L (45-117); ALT (GPT) 112 U/L (9-42); AST (GOT) 105 U/L (16-38); BICARBONATE 27.1 MEQ/L (21.0-32.0); BLOOD UREA NITROGEN 7 MG/DL (7-18); CALCIUM 8.3 MG/DL (8.5-10.1); CHLORIDE 106 MEQ/L (98-107); CREATININE 0.65 MG/DL (0.50-1.00); GLOMERULAR FILTRATION RATE 141 ML/MIN (>89); GLUCOSE,RANDOM 96 MG/DL (74-106); SODIUM (NA) 139 MEQ/L (136-145); TOTAL BILIRUBIN ADULT 8.2 MG/DL (0.2-1.0); TOTAL PROTEIN 6.7 GM/DL (6.4-8.2)
[2017-07-11 12:35] LABS: BANDS 4 % (0-6); BASOPHILS 2 % (0-2); LYMPHOCYTES 6 % (9-44); MONOCYTES 4 % (0-8); MYELOCYTES 1 % (0-0); NEUTROPHIL # MANUAL DIFF 17.5 TH/MM3 (1.8-7.7); POLYS (SEG NEUTROPHILS) 83 % (16-70); SICKLE CELLS 1+ (NORMAL); TOXIC VACUOLATION PRESENT (NONE SEEN)
[2017-07-11 12:36] LABS: TARGET CELLS 1+ (NORMAL)
[2017-07-11 12:37] LABS: HOWELL-JOLLY BODIES PRESENT (NONE SEEN)
[2017-07-11 12:38] LABS: POLYCHROMASIA 2.6 % (0.0-1.9)
--- NOTE | 2017-07-11 12:44 | HHI.HP ---
[facility] Non-Staff Admission Diagnosis sickle cell pain crisis, anemia, Diagnoses: (1) Sickle cell crisis Diagnosis: Principal Chief Complaint: generalized body ache Travel History International Travel<30 Days: No Contact w/Intl Traveler <30 Da: No Traveled to Known Affected Are: No History of Present Illness patient is a 21 y/o female with history of sickle cell disease who presented to ER with generalized body ache. she says that the pain started last night. she's complaining of pain to the legs,arms, back and chest. she came to ER last night and was discharged home. however because of worsening pain she decided to come back. 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 Review of Systems Constitutional: DENIES: Fever, Weight loss, Chills, Night Sweats Eyes: DENIES: Blurred vision, Diplopia, Vision loss, Double Vision Ears, nose, mouth, throat: DENIES: Tinnitus, Vertigo, Throat pain, Epistaxis Respiratory: DENIES: Apneas, Cough, Snoring, Wheezing, Hemoptysis, Sputum production, Shortness of breath Cardiovascular: DENIES: Chest pain, Palpitations, Syncope, Dyspnea on Exertion , PND, Lower Extremity Edema, Orthopnea, Claudication Gastrointestinal: DENIES: Abdominal pain, Black stools, Bloody stools, Constipation, Diarrhea, Nausea, Vomiting, Difficulty Swallowing, Anorexia Genitourinary: DENIES: Urinary frequency, Urgency, Hematuria, Dysuria Musculoskeletal: DENIES: Joint pain, Muscle aches, Stiffness, Joint Swelling Integumentary: DENIES: Rash Neurologic: DENIES: Abnormal gait, Headache, Localized weakness, Paresthesias, Seizures, Speech Problems, Tremor, Poor Balance Psychiatric: DENIES: Anxiety, Confusion, Mood changes, Depression, Hallucinations, Agitation, Suicidal Ideation, Homicidal Ideation, Delusions generalized body ache. Past Family Social History Past Medical History sickle cell disease. Past Surgical History cholecystectomy/ liver biopsy. Reported Medications hydroxyurea/ folic acid. Allergies: Coded Allergies: No Known Allergies (Unverified Adverse Reaction, Unknown, 07/11/17) Active Ordered Medications Inpatient Medications Diphenhydramine HCl (Benadryl Inj) 50 mg ONCE ONCE IV PUSH Last administered on 07/11/17at 08:05; Start 07/11/17 at 07:30; Stop 07/11/17 at 07:35; Status DC Folic Acid (Folate) 1 mg DAILY PO Last administered on 07/11/17at 10:13; Start 07/11/17 at 09:15 Hydromorphone HCl (Dilaudid Pf Inj) 1 mg ONCE ONCE IVS Last administered on at 08:17; Start 07/11/17 at 08:15; Stop 07/11/17 at 08:16; Status DC Hydroxyurea (Hydrea) 500 mg DAILY PO ; Start 07/11/17 at 09:15 Ketorolac Tromethamine (Toradol Inj) 30 mg ONCE ONCE IV PUSH Last administered on 07/11/17at 08:05; Start 07/11/17 at 07:30; Stop 07/11/17 at 07:35 ; Status DC Morphine Sulfate (Morphine Inj) 2 mg Q4H PRN IV PUSH PAIN; Start 07/11/17 at 09 :15 Ondansetron HCl (Zofran Inj) 4 mg Q8HR PRN IV PUSH NAUSEA; Start 07/11/17 at 14 :00 Sodium Chloride 1,000 ml @ 100 mls/hr Q10H IV Last administered on 07/11/17at 10:12; Start 07/11/17 at 09:15 Family History sickle cell disease in sister. Social History no smoking, drinking or illicit drug abuse. Physical Exam Vital Signs Vital Signs Date Time Temp Pulse Resp B/P (MAP) Pulse Ox O2 Delivery O2 Flow Rate FiO2 07/11/17 12:00 98.3 83 18 121/56 (77) 97 07/11/17 11:42 07/11/17 07:48 93 18 138/80 (99) 97 Room Air 07/11/17 06:26 98.4 97 20 121/58 (79) 95 Room Air Physical Exam GENERAL: This is a well-nourished, well-developed patient, in no apparent distress. SKIN: No rashes, ecchymoses or lesions. Cool and dry. HEAD: Atraumatic. Normocephalic. No temporal or scalp tenderness. EYES: Pupils equal round and reactive. Extraocular motions intact. No scleral icterus. No injection or drainage. ENT: Nose without bleeding, purulent drainage or septal hematoma. Throat without erythema, tonsillar hypertrophy or exudate. Uvula midline. Airway patent. NECK: Trachea midline. No JVD or lymphadenopathy. Supple, nontender, no meningeal signs. CARDIOVASCULAR: Regular rate and rhythm without murmurs, gallops, or rubs. RESPIRATORY: Clear to auscultation. Breath sounds equal bilaterally. No wheezes , rales, or rhonchi. GASTROINTESTINAL: Abdomen soft, non-tender, nondistended. No hepato-splenomegaly , or palpable masses. No guarding. MUSCULOSKELETAL: Extremities without clubbing, cyanosis, or edema. No joint tenderness, effusion, or edema noted. No calf tenderness. Negative Homans sign bilaterally. NEUROLOGICAL: Awake and alert. Cranial nerves II through XII intact. Motor and sensory grossly within normal limits. Five out of 5 muscle strength in all muscle groups. Normal speech. Laboratory Laboratory Tests Test 07/11/17 10:15 07/11/17 11:30 Urine Color YELLOW Urine Turbidity HAZY Urine pH 8.0 Urine Specific Mobile 1.007 Urine Protein NEG Urine Glucose (UA) NEG Urine Ketones NEG Urine Occult Blood NEG Urine Nitrite NEG Urine Bilirubin NEG Urine Urobilinogen LESS THAN 2.0 Urine Leukocyte Esterase NEG Urine RBC 1 Urine WBC 2 Urine Squamous Epithelial Cells 7 Urine Bacteria RARE Microscopic Urinalysis Comment CULT NOT INDICATED White Blood Count 19.9 Red Blood Count 1.63 Hemoglobin 6.1 Hematocrit 16.8 Mean Corpuscular Volume 102.8 Mean Corpuscular Hemoglobin 37.5 Mean Corpuscular Hemoglobin Concent 36.5 Red Cell Distribution Width 26.0 Platelet Count 504 Mean Platelet Volume 7.5 Neutrophils (%) (Auto) 83.3 Lymphocytes (%) (Auto) 7.7 Monocytes (%) (Auto) 8.3 Eosinophils (%) (Auto) 0.1 Basophils (%) (Auto) 0.6 Neutrophils # (Auto) 16.6 Lymphocytes # (Auto) 1.5 Monocytes # (Auto) 1.7 Eosinophils # (Auto) 0.0 Basophils # (Auto) 0.1 CBC Comment AUTO DIFF Differential Total Cells Counted 100 Neutrophils % (Manual) 83 Band Neutrophils % 4 Lymphocytes % 6 Monocytes % 4 Basophils % 2 Neutrophils # (Manual) 17.5 Myelocytes 1 Differential Comment FINAL DIFF MANUAL Toxic Vacuolation PRESENT Platelet Estimate HIGH Platelet Morphology Comment NORMAL Polychromasia 2.6 Sickle Cells 1+ Target Cells 1+ Schreiber-Underwood Bodies PRESENT Blood Urea Nitrogen 7 Creatinine 0.65 Random Glucose 96 Total Protein 6.7 Albumin 3.5 Calcium Level 8.3 Alkaline Phosphatase 109 Aspartate Amino Transf (AST/SGOT) 105 Alanine Aminotransferase (ALT/SGPT) 112 Lactate Dehydrogenase 471 Total Bilirubin 8.2 Sodium Level 139 Potassium Level 4.4 Chloride Level 106 Carbon Dioxide Level 27.1 Anion Gap 6 Estimat Glomerular Filtration Rate 141 Result Diagram: 07/11/17 1130 07/11/17 1130 Caprini VTE Risk Assessment Caprini VTE Risk Assessment: Mod/High Risk (score >= 2) Caprini Risk Assessment Model Point Value = 1 Point Value = 2 Point Value = 3 Point Value = 5 Age 41-60 Minor surgery BMI > 25 kg/m2 Swollen legs Varicose veins or History of unexplained or recurrent spontaneous Oral contraceptives or hormone replacement Sepsis (< 1 month) Serious lung disease, including pneumonia (< 1 month) Abnormal pulmonary function Acute myocardial infarction Congestive heart failure (< 1 month) History of inflammatory bowel disease Medical patient at bed rest Age 61-74 Arthroscopic surgery Major open surgery (> 45 min) Laparoscopic surgery (> 45 min) Malignancy Confined to bed (> 72 hours) Immobilizing plaster cast Central venous access Age >= 75 History of VTE Family history of VTE Factor V Leiden Prothrombin [id number] Lupus anticoagulant Anticardiolipin antibodies Elevated serum homocysteine Heparin-induced thrombocytopenia Other congenital or acquired thrombophilia Stroke (< 1 month) Elective arthroplasty Hip, pelvis, or leg fracture Acute spinal cord injury (< 1 month) Prophylaxis Regimen Total Risk Factor Score Risk Level Prophylaxis Regimen 0-1 Low Early ambulation 2 Moderate Order ONE of the following: *Sequential Compression Device (SCD) *Heparin 5000 units SQ BID 3-4 Higher Order ONE of the following medications: *Heparin 5000 units SQ TID *Enoxaparin/Lovenox 40 mg SQ daily (WT < 150 kg, CrCl > 30 mL/min) *Enoxaparin/Lovenox 30 mg SQ daily (WT < 150 kg, CrCl > 10-29 mL/min) *Enoxaparin/Lovenox 30 mg SQ BID (WT < 150 kg, CrCl > 30 mL/min) AND/OR *Sequential Compression Device (SCD) 5 or more Highest Order ONE of the following medications: *Heparin 5000 units SQ TID (Preferred with Epidurals) *Enoxaparin/Lovenox 40 mg SQ daily (WT < 150 kg, CrCl > 30 mL/min) *Enoxaparin/Lovenox 30 mg SQ daily (WT < 150 kg, CrCl > 10-29 mL/min) *Enoxaparin/Lovenox 30 mg SQ BID (WT < 150 kg, CrCl > 30 mL/min) AND *Sequential Compression Device (SCD) Assessment and Plan Assessment and Plan A/P - sickle cell painful crisis transfuse with one uint of PRBC today - resume hydroxyurea and folic acid- continue with IV fluid and pain control- will consult hematology. -DVT prophylaxis with SCD's Discussed Condition With ER physician and the patient. Physician Certification 2 Midnight Certification Type: Admission for Inpatient Services Order for Inpatient Services The services are ordered in accordance with Medicare regulations or non- Medicare payer requirements, as applicable. In the case of services not specified as inpatient-only, they are appropriately provided as inpatient services in accordance with the 2-midnight benchmark. Estimated LOS (days): 2 days is the estimated time the patient will need to remain in the hospital, assuming treatment plan goals are met and no additional complications. Post-Hospital Plan: Home Heidi Rowan MD Jul 11, 2017 12:44
[2017-07-11] MEDS ORDERED: oxyCODONE/ACETAMINOPHEN 5 MG/325 MG TAB PO PRN (12:45)
[2017-07-11] MEDS: oxyCODONE/ACETAMINOPHEN 5 MG/325 MG TAB PO PRN ×3 (14:27→22:37)
[2017-07-11] MEDS: HYDROmorphone HCL PF 2 MG/ML VIAL IV PUSH PRN ×2 (16:47→21:25)
[2017-07-12 00:13] VITALS: BP 125/76; PULSE 95; RESP 16; TEMP 99.6; O2SAT 92
[2017-07-12] MEDS: HYDROmorphone HCL PF 2 MG/ML VIAL IV PUSH PRN ×5 (00:38→19:48)
[2017-07-12] MEDS: oxyCODONE/ACETAMINOPHEN 5 MG/325 MG TAB PO PRN ×5 (02:31→21:50)
[2017-07-12] MEDS: SODIUM CHLOR 0.9% 1000 ML INJ 1,000 ML IV SCH ×2 (04:32→15:22)
[2017-07-12 04:34] VITALS: BP 122/70; PULSE 90; RESP 20; TEMP 99; O2SAT 92
[2017-07-12] MEDS: ONDANSETRON HCL 4 MG/2 ML VIAL IV PUSH PRN (06:46)
[2017-07-12 07:13] LABS: AUTOMATED NEUTROPHIL # 14.5 TH/MM3 (1.8-7.7); BASOPHIL # 0.1 TH/MM3 (0-0.2); BASOPHIL % 0.4 % (0.0-2.0); EOSINOPHIL % 0.2 % (0.0-4.0); LYMPH % 8.6 % (9.0-44.0); LYMPHOCYTE # 1.6 TH/MM3 (1.0-4.8); MEAN CELL VOLUME 97.2 FL (80.0-100.0); MEAN CORPUSCULAR HEMOGLOBIN 36.8 PG (27.0-34.0); MONO % 13.2 % (0.0-8.0); MONOCYTE # 2.5 TH/MM3 (0-0.9); NEUT % 77.6 % (16.0-70.0); PLATELET COUNT 455 TH/MM3 (150-450); RED CELL DISTRIBUTION WIDTH 28.9 % (11.6-17.2); WHITE BLOOD COUNT 18.7 TH/MM3 (4.0-11.0)
[2017-07-12 07:26] LABS: MEAN CORPUSCULAR HGB CONC 37.8 % (32.0-36.0)
[2017-07-12 07:31] LABS: HEMATOCRIT 19.5 % (35.0-46.0); HEMOGLOBIN 7.4 GM/DL (11.6-15.3)
[2017-07-12 08:11] VITALS: BP 115/67; PULSE 84; RESP 16; TEMP 98.7; O2SAT 91
[2017-07-12] MEDS: FOLIC ACID 1 MG TAB PO SCH (08:48)
[2017-07-12] MEDS: HYDROXYUREA 500 MG CAP PO SCH (08:48)
[2017-07-12 08:50] LABS: BANDS 2 % (0-6); CORRECTED NUCLEATED RBC 5 /100 WBC (0-0); LYMPHOCYTES 14 % (9-44); MONOCYTES 9 % (0-8); NEUTROPHIL # MANUAL DIFF 14.2 TH/MM3 (1.8-7.7); NUCLEATED RED BLOOD CELL 5 (0-0); POLYS (SEG NEUTROPHILS) 74 % (16-70); SICKLE CELLS 1+ (NORMAL)
--- NOTE | 2017-07-12 09:46 | HHI.PR ---
Subjective Remarks In bed. She complains of pain in her shoulders. No chest pain no cough no fever or chills. Also complains of some abdominal cramps. No nausea or vomiting no diarrhea or constipation. Seen by hematology oncology. Objective Vitals Vital Signs Date Time Temp Pulse Resp B/P (MAP) Pulse Ox O2 Delivery O2 Flow Rate FiO2 07/12/17 09:04 Room Air 07/12/17 08:11 98.7 84 16 115/67 (83) 91 07/12/17 04:40 95 2.00 07/12/17 04:34 99.0 90 20 122/70 (87) 92 07/12/17 04:00 Room Air 07/12/17 00:13 99.6 95 16 125/76 (92) 92 07/12/17 00:04 Room Air 07/11/17 21:30 Room Air 07/11/17 21:05 98.6 79 16 121/61 (81) 93 07/11/17 17:19 20 07/11/17 16:11 18 07/11/17 16:00 98.8 95 18 116/62 (80) 95 07/11/17 14:50 98.2 95 18 116/62 92 07/11/17 14:40 98.8 100 18 127/69 92 07/11/17 12:00 98.3 83 18 121/56 (77) 97 07/11/17 11:42 I/O 07/11/17 07/11/17 07/11/17 07/12/17 07/12/17 07/12/17 07:00 15:00 23:00 07:00 15:00 23:00 Intake Total 1000 ml 1479 ml 1479 ml Output Total 1050 ml Balance 1000 ml 1479 ml 429 ml Intake Oral 480 ml 480 ml IV Total 1000 ml 999 ml 999 ml Output Urine Total 1050 ml # Voids 1 # Bowel Movements 0 Result Diagram: 07/12/17 0540 07/11/17 1130 Imaging Last Impressions Chest X-Ray 07/12/17 0000 Signed Impressions: Service Date/Time: Wednesday, July 12, 2017 13:38 - CONCLUSION: Minimal patchy density in lower lobes. Max Perez MD Objective Remarks GENERAL: This is a well-nourished, well-developed patient, in no apparent distress. CARDIOVASCULAR: Regular rate and rhythm without murmurs, gallops, or rubs. RESPIRATORY: Clear to auscultation. Breath sounds equal bilaterally. No wheezes , rales, or rhonchi. GASTROINTESTINAL: Abdomen soft, non-tender, nondistended. No hepato-splenomegaly , or palpable masses. No guarding. MUSCULOSKELETAL: Extremities without clubbing, cyanosis, or edema. No joint tenderness, effusion, or edema noted. No calf tenderness. Negative Homans sign bilaterally. NEUROLOGICAL: Awake and alert. Cranial nerves II through XII intact. Motor and sensory grossly within normal limits. Five out of 5 muscle strength in all muscle groups. Normal speech. A/P Problem List: (1) Sickle cell crisis ICD Code: D57.00 - Hb-SS disease with crisis, unspecified Status: Acute Assessment and Plan Sickle cell painful crisis Hemoglobin of 6.1 on admission received 1 unit of blood repeat hemoglobin 7.3 s/p of PRBC 07/11 continue hydroxyurea and folic acid- Monitor H/h continue with IV fluid and pain control- hematology following -DVT prophylaxis with SCD's Discussed Condition With patient,nurse. Payton Massey MD Jul 12, 2017 09:46
--- NOTE | 2017-07-12 10:22 | MB ---
cc: Dirk Green MD DATE OF CONSULT: 07/11/2017 REASON FOR CONSULTATION: Consult requested by hospitalist for evaluation of sickle cell painful crisis. HISTORY OF PRESENT ILLNESS: Aron is a 21-year-old female. She is from [place], but she moved to this area to attend [employer]. She has a history of sickle cell disease with multiple painful crises. She came to the emergency room complaining of pain in both arms. This is one of the painful crisis episodes. This all started last night. She denies any cough, shortness of breath or chest pain. She denies any fever. She denies any nausea, vomiting, diarrhea or constipation. She states that her pain is improving since she has been in the hospital. The rest of the review of systems is negative. PAST MEDICAL HISTORY: Sickle cell disease with multiple painful crises. PAST SURGICAL HISTORY: Cholecystectomy and liver biopsy. MEDICATIONS: Hydroxyurea, folic acid and Percocet. ALLERGIES: NONE. FAMILY HISTORY: Significant for sickle cell disease. SOCIAL HISTORY: She does not smoke cigarettes nor does she drink alcohol. She is a student at [employer]. PHYSICAL EXAMINATION: GENERAL: Well developed, well nourished -[place]i female in no apparent distress, VITAL SIGNS: Temperature 98.8, heart rate is 95, blood pressure 116/62, O2 saturation 95%. HEENT: PEERLA. EOMI. Anicteric. No oral lesions noted. NECK: No lymphadenopathy noted. LUNGS: Clear. No wheezing, rhonchi or rales. HEART: Regular rate and rhythm. ABDOMEN: Soft, nontender, no hepatosplenomegaly. EXTREMITIES: No pedal edema. NEUROLOGIC: Awake, alert, oriented x 3. SKIN: No significant lesions noted. ASSESSMENT: Sickle cell anemia with painful crisis. PLAN: I have reviewed her available records and I have discussed with the patient regarding the sickle cell painful crisis. She had a blood test today which showed white count of 19.9, hemoglobin 6.1, MCV is 102, platelet count is 504. She has toxic granulation. The differential count is significant for neutrophilia and monocytosis. She also has 4% bands. The comprehensive metabolic profile is normal except the calcium is 8.3, total bilirubin is 8.2, AST is 105, ALT is 112, LDH is 471. Urinalysis does not show a urinary tract infection. The patient is current receiving hydration and transfusion support. She is also on folic acid, hydromorphone, Hydrea and Toradol. She had received her blood transfusion today for a hemoglobin of 6.1. My recommendation is to continue with the present treatment plan. Further recommendations based on her hospital stay. Thank you for asking my opinion. MD DANITZA Meza/ALL/ , 10:23 PM , 08:35 AM KRISTAN
[2017-07-12 12:11] VITALS: BP 120/73; PULSE 74; RESP 17; TEMP 99; O2SAT 100
--- NOTE | 2017-07-12 14:11 | RADRPT ---
EXAM DATE/TIME: 07/12/2017 13:38 [place] COMPARISON: CHEST PA & LAT, July 13, 2016, 19:59. INDICATIONS : Infiltrate. MEDICAL HISTORY : Sickle Cell disease. SURGICAL HISTORY : None. ENCOUNTER: Initial ACUITY: 2 days PAIN SCORE: 0/10 LOCATION: Bilateral chest FINDINGS: PA and lateral views of the chest demonstrate minimal patchy densities in the lower lobes. Mild cardi omegaly. The cardiomediastinal contours are unremarkable. Osseous structures are intact. CONCLUSION: Minimal patchy density in lower lobes. Max Perez MD on July 12, 2017 at 14:09 Board Certified Radiologist. This report was verified electronically.
--- NOTE | 2017-07-12 15:09 | PD.ONC.PN ---
Subjective Subjective Remarks Afebrile overnight. Patient resting in bed. States she continues to have pain in both arms. would like me to stop the Percocet and just have her on the IV pain medication, dilaudid. states she also feels fatigued today. no chest pain or shortness of breath. Objective Data Date Time Temp Pulse Resp B/P (MAP) Pulse Ox O2 Delivery O2 Flow Rate FiO2 07/12/17 12:00 100 Nasal Cannula 2.00 07/12/17 09:04 91 Room Air 07/12/17 08:11 98.7 84 16 115/67 (83) 91 07/12/17 04:40 95 2.00 07/12/17 04:34 99.0 90 20 122/70 (87) 92 07/12/17 04:00 Room Air 07/12/17 00:13 99.6 95 16 125/76 (92) 92 07/12/17 00:04 Room Air 07/11/17 21:30 Room Air 07/11/17 21:05 98.6 79 16 121/61 (81) 93 07/11/17 17:19 20 07/11/17 16:11 18 07/11/17 16:00 98.8 95 18 116/62 (80) 95 07/12/17 07/12/17 07/12/17 07:00 15:00 23:00 Intake Total 1479 ml Output Total 1050 ml Balance 429 ml Result Diagram: 07/12/17 0540 07/11/17 1130 Laboratory Results Laboratory Tests Test 07/12/17 05:40 White Blood Count 18.7 TH/MM3 Red Blood Count 2.00 MIL/MM3 Hemoglobin 7.4 GM/DL Hematocrit 19.5 % Mean Corpuscular Volume 97.2 FL Mean Corpuscular Hemoglobin 36.8 PG Mean Corpuscular Hemoglobin Concent 37.8 % Red Cell Distribution Width 28.9 % Platelet Count 455 TH/MM3 Mean Platelet Volume 8.0 FL Neutrophils (%) (Auto) 77.6 % Lymphocytes (%) (Auto) 8.6 % Monocytes (%) (Auto) 13.2 % Eosinophils (%) (Auto) 0.2 % Basophils (%) (Auto) 0.4 % Neutrophils # (Auto) 14.5 TH/MM3 Lymphocytes # (Auto) 1.6 TH/MM3 Monocytes # (Auto) 2.5 TH/MM3 Eosinophils # (Auto) 0.0 TH/MM3 Basophils # (Auto) 0.1 TH/MM3 CBC Comment AUTO DIFF Differential Total Cells Counted 100 Neutrophils % (Manual) 74 % Band Neutrophils % 2 % Lymphocytes % 14 % Monocytes % 9 % Eosinophils % 1 % Neutrophils # (Manual) 14.2 TH/MM3 Nucleated Red Blood Cells 5 /100 WBC Differential Comment FINAL DIFF MANUAL Platelet Estimate HIGH Platelet Morphology Comment NORMAL Sickle Cells 1+ Imaging Studies Last 24 hours Impressions Chest X-Ray 07/12/17 0000 Signed Impressions: Service Date/Time: Wednesday, July 12, 2017 13:38 - CONCLUSION: Minimal patchy density in lower lobes. Max Perez MD Administered Medications Medications (Trade) Dose Ordered Sig/Arjun Route PRN Reason Start Time Stop Time Status Last Admin Dose Admin Sodium Chloride 1,000 ml @ 125 mls/hr Q8H IV 07/11/17 09:15 07/12/17 04:32 Ondansetron HCl (Zofran Inj) 4 mg Q8HR PRN IV PUSH NAUSEA 07/11/17 14:00 07/12/17 06:46 Folic Acid (Folate) 1 mg DAILY PO 07/11/17 09:15 07/12/17 08:48 Hydroxyurea (Hydrea) 500 mg DAILY PO 07/11/17 09:15 07/12/17 08:48 Oxycodone/ Acetaminophen (Percocet 5-325 Mg) 2 tab Q4H PRN PO PAIN 6-10 07/11/17 12:45 07/12/17 11:02 Hydromorphone HCl (Dilaudid Pf Inj) 1 mg Q4H PRN IV PUSH BREAKTHROUGH PAIN 07/11/17 15:30 07/12/17 13:11 Objective Remarks GENERAL: Pleasant young woman, sitting up in bed, facetiming with friend on phone. she appears comfortable, mildly lethargic and in nad. SKIN: Warm and dry. HEAD: Normocephalic. EYES: No injection or drainage. NECK: Supple, trachea midline. CARDIOVASCULAR: Regular rate and rhythm without murmurs. RESPIRATORY: Breath sounds equal bilaterally. No accessory muscle use. GASTROINTESTINAL: Abdomen soft, non-tender, nondistended. EXTREMITIES: No cyanosis NEUROLOGICAL: awake and alert, normal speech. Assessment/Plan Problem List: (1) Sickle cell crisis ICD Codes: D57.00 - Hb-SS disease with crisis, unspecified Status: Acute Plan: 07/12: hgb 7.4. no transfusion needed today. would continue pain medications, discussed with patient I would prefer to continue the Percocet with the dilaudid rather than just increase her dilaudid, as the Percocet is longer acting. continue IVF. --on folic acid, hydromorphone, Hydrea and Toradol. Assessment 21y/o female admitted with sickle cell painful crisis. Attending Statement The exam, history, and the medical decision-making described in the above note were completed with the assistance of the mid-level provider. I reviewed and agree with the findings presented. I attest that I had a [id number] encounter with the patient on the same day, and personally performed and documented my assessment and findings in the medical record. Still ahs the arm pain but improving. No evidence of Chest syndrome. continue narcs, hydration, hydrea and folic acid Tiffany Santana Jul 12, 2017 15:09 Dirk Green MD Jul 12, 2017 15:43
[2017-07-12 16:11] VITALS: BP 120/71; PULSE 102; RESP 17; TEMP 101.4; O2SAT 100
[2017-07-12 20:00] VITALS: BP_SYST 108; BP_SYST 99; BP_DIAS 54; BP_DIAS 55; PULSE 63; PULSE 87; RESP 17; TEMP 98.6; TEMP 98.9; O2SAT 95; O2SAT 99
[2017-07-13] VITALS (15 sets, daily range): BP systolic 113–137; BP diastolic 61–85; PULSE 66–96; RESP 14–20; TEMP 97.9–100; O2SAT 94–99
[2017-07-13] MEDS: HYDROmorphone HCL PF 2 MG/ML VIAL IV PUSH PRN ×5 (01:25→23:48)
[2017-07-13] MEDS: SODIUM CHLOR 0.9% 1000 ML INJ 1,000 ML IV SCH ×3 (02:30→16:32)
[2017-07-13] MEDS: oxyCODONE/ACETAMINOPHEN 5 MG/325 MG TAB PO PRN (06:17)
[2017-07-13] MEDS: ONDANSETRON HCL 4 MG/2 ML VIAL IV PUSH PRN (06:17)
[2017-07-13] MEDS: FOLIC ACID 1 MG TAB PO SCH (08:39)
[2017-07-13] MEDS: HYDROXYUREA 500 MG CAP PO SCH (08:39)
--- NOTE | 2017-07-13 13:00 | PD.ONC.PN ---
Subjective Subjective Remarks Tmax 100F overnight. Patient wants to take only the IV pain medication. She states the PO pain medications both make her too tired and do not control her pain. she states she still has pain in her arms. no chest pain or shortness of breath. Objective Data Date Time Temp Pulse Resp B/P (MAP) Pulse Ox O2 Delivery O2 Flow Rate FiO2 07/13/17 11:52 98.6 81 17 120/72 (88) 99 07/13/17 09:48 98 Nasal Cannula 2.00 07/13/17 09:46 99.0 18 98 07/13/17 08:28 100.0 83 16 122/66 (84) 95 07/13/17 05:47 Nasal Cannula 2.00 07/13/17 05:13 98.6 94 14 119/74 (89) 96 07/13/17 00:50 98.9 96 14 115/67 (83) 96 07/13/17 00:00 Nasal Cannula 2.00 07/12/17 20:00 Nasal Cannula 2.00 07/12/17 20:00 98.9 87 108/55 (72) 99 07/12/17 17:00 99 Nasal Cannula 2.00 07/12/17 16:11 101.4 102 17 120/71 (87) 100 07/13/17 07/13/17 07/13/17 06:59 14:59 22:59 Intake Total 999 ml Balance 999 ml Result Diagram: 07/12/17 0540 07/11/17 1130 Administered Medications Medications (Trade) Dose Ordered Sig/Arjun Route PRN Reason Start Time Stop Time Status Last Admin Dose Admin Sodium Chloride 1,000 ml @ 125 mls/hr Q8H IV 07/11/17 09:15 07/13/17 08:39 Ondansetron HCl (Zofran Inj) 4 mg Q8HR PRN IV PUSH NAUSEA 07/11/17 14:00 07/13/17 06:17 Folic Acid (Folate) 1 mg DAILY PO 07/11/17 09:15 07/13/17 08:39 Hydroxyurea (Hydrea) 500 mg DAILY PO 07/11/17 09:15 07/13/17 08:39 Hydromorphone HCl (Dilaudid Pf Inj) 1 mg Q4H PRN IV PUSH BREAKTHROUGH PAIN 07/11/17 15:30 07/13/17 11:17 Objective Remarks GENERAL: young woman, sleeping on approach, awakens to my voice as I enter the room. She appears tired, but comfortable and in nad. SKIN: Warm and dry. HEAD: Normocephalic. EYES: No injection or drainage. NECK: Supple, trachea midline. CARDIOVASCULAR: Regular rate and rhythm without murmurs. RESPIRATORY: Breath sounds equal bilaterally. No accessory muscle use. GASTROINTESTINAL: Abdomen soft, non-tender, nondistended. EXTREMITIES: No cyanosis NEUROLOGICAL: awake and alert, normal speech. moving all extremities. Assessment/Plan Problem List: (1) Sickle cell crisis ICD Codes: D57.00 - Hb-SS disease with crisis, unspecified Status: Acute Plan: 07/13: await CBC today. will stop PO pain medications at patients request. continue IV dilaudid. continue IVF and hydrea. --on folic acid, hydromorphone, Hydrea Assessment 21y/o female admitted with sickle cell painful crisis. Attending Statement The exam, history, and the medical decision-making described in the above note were completed with the assistance of the mid-level provider. I reviewed and agree with the findings presented. I attest that I had a [id number] encounter with the patient on the same day, and personally performed and documented my assessment and findings in the medical record. same , no new c/o hg low, PRBC today. continue present plan. Tiffany Santana Jul 13, 2017 13:00 Dirk Green MD Jul 13, 2017 16:55
[2017-07-13 13:27] LABS: AUTOMATED NEUTROPHIL # 16.9 TH/MM3 (1.8-7.7); BASOPHIL # 0.1 TH/MM3 (0-0.2); BASOPHIL % 0.3 % (0.0-2.0); EOSINOPHIL # 0.1 TH/MM3 (0-0.4); EOSINOPHIL % 0.5 % (0.0-4.0); LYMPH % 9.3 % (9.0-44.0); LYMPHOCYTE # 1.9 TH/MM3 (1.0-4.8); MEAN CELL VOLUME 97.3 FL (80.0-100.0); MEAN CORPUSCULAR HEMOGLOBIN 35.7 PG (27.0-34.0); MEAN PLATELET VOLUME 7.8 FL (7.0-11.0); MONOCYTE # 1.7 TH/MM3 (0-0.9); NEUT % 81.9 % (16.0-70.0); PLATELET COUNT 389 TH/MM3 (150-450); RED BLOOD COUNT 1.85 MIL/MM3 (4.00-5.30); RED CELL DISTRIBUTION WIDTH 26.9 % (11.6-17.2); WHITE BLOOD COUNT 20.7 TH/MM3 (4.0-11.0)
[2017-07-13 13:30] LABS: MEAN CORPUSCULAR HGB CONC 36.7 % (32.0-36.0)
[2017-07-13 13:32] LABS: HEMOGLOBIN 6.6 GM/DL (11.6-15.3)
[2017-07-13] MEDS ORDERED: FUROSEMIDE 20 MG/2 ML VIAL IV PUSH ONE (14:15)
[2017-07-13] MEDS ORDERED: diphenhydrAMINE HCL 25 MG CAP PO PRN (14:15)
[2017-07-13] MEDS ORDERED: SODIUM CHLOR 0.9% 250 ML INJ 250 ML IV ONE (14:15)
[2017-07-13] MEDS ORDERED: ACETAMINOPHEN 325 MG TAB PO PRN (14:15)
--- NOTE | 2017-07-13 14:16 | HHI.PR ---
Subjective Remarks In bed says she still has a lot of pain in her arm shoulder. no fever or chills. Feels tired No chest pain. Objective Vitals Vital Signs Date Time Temp Pulse Resp B/P (MAP) Pulse Ox O2 Delivery O2 Flow Rate FiO2 07/13/17 11:52 98.6 81 17 120/72 (88) 99 07/13/17 09:48 98 Nasal Cannula 2.00 07/13/17 09:46 99.0 18 98 07/13/17 08:28 100.0 83 16 122/66 (84) 95 07/13/17 05:47 Nasal Cannula 2.00 07/13/17 05:13 98.6 94 14 119/74 (89) 96 07/13/17 00:50 98.9 96 14 115/67 (83) 96 07/13/17 00:00 Nasal Cannula 2.00 07/12/17 20:00 Nasal Cannula 2.00 07/12/17 20:00 98.9 87 108/55 (72) 99 07/12/17 17:00 99 Nasal Cannula 2.00 07/12/17 16:11 101.4 102 17 120/71 (87) 100 I/O 07/12/17 07/12/17 07/12/17 07/13/17 07/13/17 07/13/17 07:00 15:00 23:00 07:00 15:00 23:00 Intake Total 1479 ml 1379 ml 999 ml Output Total 1050 ml Balance 429 ml 1379 ml 999 ml Intake Oral 480 ml 380 ml IV Total 999 ml 999 ml 999 ml Output Urine Total 1050 ml # Voids 5 2 # Bowel Movements 0 1 Result Diagram: 07/13/17 1310 07/11/17 1130 Imaging Last Impressions Chest X-Ray 07/12/17 0000 Signed Impressions: Service Date/Time: Wednesday, July 12, 2017 13:38 - CONCLUSION: Minimal patchy density in lower lobes. Max Perez MD Objective Remarks GENERAL: This is a well-nourished, well-developed patient, in no apparent distress. CARDIOVASCULAR: Regular rate and rhythm without murmurs, gallops, or rubs. RESPIRATORY: Clear to auscultation. Breath sounds equal bilaterally. No wheezes , rales, or rhonchi. GASTROINTESTINAL: Abdomen soft, non-tender, nondistended. No hepato-splenomegaly , or palpable masses. No guarding. MUSCULOSKELETAL: Extremities without clubbing, cyanosis, or edema. No joint tenderness, effusion, or edema noted. No calf tenderness. Negative Homans sign bilaterally. NEUROLOGICAL: Awake and alert. Cranial nerves II through XII intact. Motor and sensory grossly within normal limits. Five out of 5 muscle strength in all muscle groups. Normal speech. A/P Problem List: (1) Sickle cell crisis ICD Code: D57.00 - Hb-SS disease with crisis, unspecified Status: Acute Assessment and Plan Sickle cell painful crisis Hemoglobin of 6.1 on admission received 1 unit of blood repeat hemoglobin 7.3 s/p of PRBC 07/11 continue hydroxyurea and folic acid- Monitor H/h 07/13/17 patient with drop in HGB of 6.6 today. Transfuse 2 U PRBC. continue with IV fluid and pain control IV dilaudid patient says PO meds doesn' t help much and she is still with pain - Check LDH and retic count hematology following -DVT prophylaxis with SCD's Discussed Condition With patient,nurse. Payton Massey MD Jul 13, 2017 14:16
[2017-07-13 14:19] LABS: BANDS 1 % (0-6); CORRECTED NUCLEATED RBC 5 /100 WBC (0-0); LYMPHOCYTES 6 % (9-44); MONOCYTES 7 % (0-8); NUCLEATED RED BLOOD CELL 5 (0-0); POLYS (SEG NEUTROPHILS) 86 % (16-70)
[2017-07-13 14:20] LABS: SICKLE CELLS 1+ (NORMAL)
[2017-07-13 14:21] LABS: TARGET CELLS 1+ (NORMAL)
[2017-07-14 04:00] VITALS: BP 144/82; PULSE 89; RESP 16; TEMP 98.4; O2SAT 97
[2017-07-14] MEDS: ONDANSETRON HCL 4 MG/2 ML VIAL IV PUSH PRN ×2 (04:00→15:45)
[2017-07-14] MEDS: SODIUM CHLOR 0.9% 1000 ML INJ 1,000 ML IV SCH ×3 (04:01→17:21)
[2017-07-14] MEDS: HYDROmorphone HCL PF 2 MG/ML VIAL IV PUSH PRN ×4 (04:01→21:47)
[2017-07-14 07:04] LABS: AUTOMATED NEUTROPHIL # 15.4 TH/MM3 (1.8-7.7); BASOPHIL # 0.2 TH/MM3 (0-0.2); BASOPHIL % 0.8 % (0.0-2.0); EOSINOPHIL # 0.1 TH/MM3 (0-0.4); EOSINOPHIL % 0.8 % (0.0-4.0); HEMATOCRIT 26.5 % (35.0-46.0); HEMOGLOBIN 9.4 GM/DL (11.6-15.3); LYMPH % 9.1 % (9.0-44.0); LYMPHOCYTE # 1.7 TH/MM3 (1.0-4.8); MEAN CELL VOLUME 92.4 FL (80.0-100.0); MEAN CORPUSCULAR HGB CONC 35.7 % (32.0-36.0); MEAN PLATELET VOLUME 8.4 FL (7.0-11.0); MONO % 8.5 % (0.0-8.0); MONOCYTE # 1.6 TH/MM3 (0-0.9); NEUT % 80.8 % (16.0-70.0); PLATELET COUNT 333 TH/MM3 (150-450); RED BLOOD COUNT 2.87 MIL/MM3 (4.00-5.30); RED CELL DISTRIBUTION WIDTH 24.2 % (11.6-17.2)
[2017-07-14 07:35] LABS: BICARBONATE 27.9 MEQ/L (21.0-32.0); CALCIUM 8.3 MG/DL (8.5-10.1); CREATININE 0.49 MG/DL (0.50-1.00)
[2017-07-14 07:43] LABS: RETIC # 193.6 MIL/L (20.0-150.0); RETIC % 6.7 % (0.4-3.0)
[2017-07-14 08:10] VITALS: BP 143/71; PULSE 61; RESP 17; TEMP 99; O2SAT 98
[2017-07-14] MEDS: FOLIC ACID 1 MG TAB PO SCH (08:35)
[2017-07-14] MEDS: HYDROXYUREA 500 MG CAP PO SCH (08:39)
[2017-07-14 09:57] LABS: BANDS 3 % (0-6); CORRECTED NUCLEATED RBC 5 /100 WBC (0-0); LYMPHOCYTES 10 % (9-44); MONOCYTES 6 % (0-8); NUCLEATED RED BLOOD CELL 5 (0-0); POLYCHROMASIA 2.2 % (0.0-1.9); POLYS (SEG NEUTROPHILS) 81 % (16-70); SICKLE CELLS 1+ (NORMAL); TARGET CELLS 1+ (NORMAL)
[2017-07-14] MEDS ORDERED: HYDROmorphone HCL PF 2 MG/ML VIAL IV PUSH PRN (10:30)
--- NOTE | 2017-07-14 11:08 | RADRPT ---
EXAM DATE/TIME: 07/14/2017 10:55 [facility] COMPARISON: CHEST PA & LAT, July 12, 2017, 13:38. INDICATIONS : Chest pain. MEDICAL HISTORY : Sickle Cell disease. SURGICAL HISTORY : None. ENCOUNTER: Subsequent ACUITY: 3 days PAIN SCORE: 5/10 LOCATION: Bilateral chest FINDINGS: PA and lateral views of the chest demonstrate a small to drain the right lung base with blunting of t he costophrenic angle suspicious for small pleural effusion. Left lung is clear.. The cardiomediasti nal contours are unremarkable. Osseous structures are intact. CONCLUSION: In the right lung base there is a small infiltrate with a small associated pleural effusion. Yaakov Stevenson MD on July 14, 2017 at 11:07 Board Certified Radiologist. This report was verified electronically.
--- NOTE | 2017-07-14 11:09 | PD.ONC.PN ---
Subjective Subjective Remarks Afebrile overnight. Patient sleeping on approach. She states her pain is improved, but she is concerned that bc she states she still has pain in her chest. She states the pain has been in her chest since she came into the hospital. she denies cough. Objective Data Date Time Temp Pulse Resp B/P (MAP) Pulse Ox O2 Delivery O2 Flow Rate FiO2 07/14/17 08:10 99.0 61 17 143/71 (95) 98 07/14/17 08:00 Nasal Cannula 2.00 07/14/17 04:31 18 07/14/17 04:00 98.4 89 16 144/82 (102) 97 07/13/17 23:40 99.3 66 16 136/78 (97) 95 07/13/17 21:00 98.2 66 16 124/68 97 07/13/17 20:45 Nasal Cannula 2.00 07/13/17 20:37 99 Nasal Cannula 3.00 07/13/17 20:18 98.4 68 16 133/83 99 07/13/17 20:02 98.4 81 16 124/62 99 07/13/17 20:01 98.4 70 14 113/64 (80) 98 07/13/17 17:00 99 Nasal Cannula 2.00 07/13/17 16:45 98.6 75 20 129/85 99 07/13/17 16:25 98.4 84 20 137/78 94 07/13/17 16:00 98.4 84 20 137/78 (97) 94 07/13/17 11:52 98.6 81 17 120/72 (88) 99 07/14/17 07/14/17 07/14/17 07:00 15:00 23:00 Intake Total 890 ml Output Total 800 ml Balance 90 ml Result Diagram: 07/14/17 0553 07/14/17 0553 Laboratory Results Laboratory Tests Test 07/13/17 13:10 07/14/17 05:53 White Blood Count 20.7 TH/MM3 19.0 TH/MM3 Red Blood Count 1.85 MIL/MM3 2.87 MIL/MM3 Hemoglobin 6.6 GM/DL 9.4 GM/DL Hematocrit 18.0 % 26.5 % Mean Corpuscular Volume 97.3 FL 92.4 FL Mean Corpuscular Hemoglobin 35.7 PG 33.0 PG Mean Corpuscular Hemoglobin Concent 36.7 % 35.7 % Red Cell Distribution Width 26.9 % 24.2 % Platelet Count 389 TH/MM3 333 TH/MM3 Mean Platelet Volume 7.8 FL 8.4 FL Neutrophils (%) (Auto) 81.9 % 80.8 % Lymphocytes (%) (Auto) 9.3 % 9.1 % Monocytes (%) (Auto) 8.0 % 8.5 % Eosinophils (%) (Auto) 0.5 % 0.8 % Basophils (%) (Auto) 0.3 % 0.8 % Neutrophils # (Auto) 16.9 TH/MM3 15.4 TH/MM3 Lymphocytes # (Auto) 1.9 TH/MM3 1.7 TH/MM3 Monocytes # (Auto) 1.7 TH/MM3 1.6 TH/MM3 Eosinophils # (Auto) 0.1 TH/MM3 0.1 TH/MM3 Basophils # (Auto) 0.1 TH/MM3 0.2 TH/MM3 CBC Comment AUTO DIFF AUTO DIFF Differential Total Cells Counted 100 100 Neutrophils % (Manual) 86 % 81 % Band Neutrophils % 1 % 3 % Lymphocytes % 6 % 10 % Monocytes % 7 % 6 % Neutrophils # (Manual) 18.0 TH/MM3 16.0 TH/MM3 Nucleated Red Blood Cells 5 /100 WBC 5 /100 WBC Differential Comment FINAL DIFF MANUAL FINAL DIFF MANUAL Platelet Estimate NORMAL NORMAL Platelet Morphology Comment NORMAL NORMAL Polychromasia 2.0 % 2.2 % Sickle Cells 1+ 1+ Target Cells 1+ 1+ Reticulocyte Count 6.7 % Absolute Reticulocyte Count 193.6 MIL/L Blood Urea Nitrogen 6 MG/DL Creatinine 0.49 MG/DL Random Glucose 69 MG/DL Calcium Level 8.3 MG/DL Lactate Dehydrogenase 484 U/L Sodium Level 137 MEQ/L Potassium Level 3.7 MEQ/L Chloride Level 102 MEQ/L Carbon Dioxide Level 27.9 MEQ/L Anion Gap 7 MEQ/L Estimat Glomerular Filtration Rate 195 ML/MIN Administered Medications Medications (Trade) Dose Ordered Sig/Arjun Route PRN Reason Start Time Stop Time Status Last Admin Dose Admin Sodium Chloride 1,000 ml @ 125 mls/hr Q8H IV 07/11/17 09:15 07/14/17 04:01 Ondansetron HCl (Zofran Inj) 4 mg Q8HR PRN IV PUSH NAUSEA 07/11/17 14:00 07/14/17 04:00 Folic Acid (Folate) 1 mg DAILY PO 07/11/17 09:15 07/14/17 08:35 Hydroxyurea (Hydrea) 500 mg DAILY PO 07/11/17 09:15 07/14/17 08:39 Acetaminophen (Tylenol) 650 mg Q4H PRN PO SEE LABEL COMMENTS 07/13/17 14:15 07/13/17 15:42 Diphenhydramine HCl (Benadryl) 25 mg Q4H PRN PO SEE LABEL COMMENTS 07/13/17 14:15 07/13/17 15:41 Objective Remarks GENERAL: young woman, sleeping in bed on approach. she awakens to physical stimuli. she appears comfortable and in nad. SKIN: Warm and dry. HEAD: Normocephalic. EYES: No injection or drainage. NECK: Supple, trachea midline. CARDIOVASCULAR: Regular rate and rhythm without murmurs. RESPIRATORY: Breath sounds equal bilaterally. No accessory muscle use. on 2L O2 via NC GASTROINTESTINAL: Abdomen soft, non-tender, nondistended. EXTREMITIES: No cyanosis NEUROLOGICAL: awake and alert, normal speech. moving all extremities. Assessment/Plan Problem List: (1) Sickle cell crisis ICD Codes: D57.00 - Hb-SS disease with crisis, unspecified Status: Acute Plan: 07/14: patient's pain seems to have improved. she is complaining of a "chest pain" that she states has been present since she entered the hospital. I am somewhat skeptical to believe this as I asked Ms. Wood yesterday and the day before if she had chest pain and she very clearly stated "no." However, will continue supportive care with pain management and IVF. will reduce IV dilaudid. will also obtain another chest x-ray. UPDATE: at 12PM I received an update from patient's hospitalist Dr. Massey that the patient is now complaining of severe pain in the right arm. if the patient has not had an injury, this is likely a bone infarct. a CT could be obtained for confirmation. continue pain management and IVF --on folic acid, hydromorphone, Hydrea Assessment 21y/o female admitted with sickle cell painful crisis. Attending Statement The exam, history, and the medical decision-making described in the above note were completed with the assistance of the mid-level provider. I reviewed and agree with the findings presented. I attest that I had a [id number] encounter with the patient on the same day, and personally performed and documented my assessment and findings in the medical record. c/o pain in the arm. continue pain meds. no tx today. Tiffany Santana Jul 14, 2017 11:09 Dirk Green MD Jul 14, 2017 23:47
[2017-07-14 11:36] VITALS: BP 126/78; PULSE 78; RESP 16; TEMP 98.5; O2SAT 95
[2017-07-14] MEDS ORDERED: HYDROmorphone HCL PF 2 MG/ML VIAL IV PUSH ONE (12:15)
--- NOTE | 2017-07-14 12:20 | HHI.PR ---
Subjective Remarks With severe pain in her right arm. With fevers and chills. Max temp 100 F yesterday morning afebrile overnight No cough. No chest apin . No abd cramps/ pain Says she cant move much her right arm because of pain. She has pain in both arms and shoulders. Objective Vitals Vital Signs Date Time Temp Pulse Resp B/P (MAP) Pulse Ox O2 Delivery O2 Flow Rate FiO2 07/14/17 11:36 98.5 78 16 126/78 (94) 95 07/14/17 08:10 99.0 61 17 143/71 (95) 98 07/14/17 08:00 Nasal Cannula 2.00 07/14/17 04:31 18 07/14/17 04:00 98.4 89 16 144/82 (102) 97 07/13/17 23:40 99.3 66 16 136/78 (97) 95 07/13/17 21:00 98.2 66 16 124/68 97 07/13/17 20:45 Nasal Cannula 2.00 07/13/17 20:37 99 Nasal Cannula 3.00 07/13/17 20:18 98.4 68 16 133/83 99 07/13/17 20:02 98.4 81 16 124/62 99 07/13/17 20:01 98.4 70 14 113/64 (80) 98 07/13/17 17:00 99 Nasal Cannula 2.00 07/13/17 16:45 98.6 75 20 129/85 99 07/13/17 16:25 98.4 84 20 137/78 94 07/13/17 16:00 98.4 84 20 137/78 (97) 94 I/O 07/13/17 07/13/17 07/13/17 07/14/17 07/14/17 07/14/17 07:00 15:00 23:00 07:00 15:00 23:00 Intake Total 999 ml 410 ml 890 ml Output Total 800 ml Balance 999 ml 410 ml 90 ml Intake Oral 480 ml IV Total 999 ml Packed Cells 400 ml 400 ml Blood Product IV Normal Saline Flush 10 ml 10 ml Output Urine Total 800 ml # Voids 2 # Bowel Movements 0 Result Diagram: 07/14/17 0553 07/14/17 0553 Imaging Last Impressions Chest X-Ray 07/14/17 0000 Signed Impressions: Service Date/Time: July 10:55 - CONCLUSION: In the right lung base there is a small infiltrate with a small associated pleural effusion. Yaakov Stevenson MD Objective Remarks GENERAL: This is a well-nourished, well-developed patient, in no apparent distress. CARDIOVASCULAR: Regular rate and rhythm without murmurs, gallops, or rubs. RESPIRATORY: Clear to auscultation. Breath sounds equal bilaterally. No wheezes , rales, or rhonchi. GASTROINTESTINAL: Abdomen soft, non-tender, nondistended. No hepato-splenomegaly , or palpable masses. No guarding. MUSCULOSKELETAL: Extremities without clubbing, cyanosis, or edema. No joint tenderness, effusion, or edema noted. No calf tenderness. Negative Homans sign bilaterally. NEUROLOGICAL: Awake and alert. Cranial nerves II through XII intact. Motor and sensory grossly within normal limits. Five out of 5 muscle strength in all muscle groups. Normal speech. A/P Problem List: (1) Sickle cell crisis ICD Code: D57.00 - Hb-SS disease with crisis, unspecified Status: Acute Assessment and Plan Sickle cell painful crisis Hemoglobin of 6.1 on admission received 1 unit of blood repeat hemoglobin 7.3 s/p of PRBC 07/11 continue hydroxyurea and folic acid- Monitor H/h 07/13/17 patient with drop in HGB of 6.6 . Transfused 2 U PRBC. repeat HGB 9.1 Monitor AND TRANSFUSE IF <7 continue with IV fluid and pain control IV dilaudid patient says PO meds doesn' t help much and she is still with pain - Give extra dose of dilaudid 3// 1 mg as patient with significant pain in her right arm . Plan for CXR reviewed right base PNA and small pleural effusion Start IV abx levaquin check blood cx Add IS Also with severe pain in her right shoulder. patient has pain in her shoulders and arms . Plan for CT right shoulder and also US bilat arms LDH and retic count high , monitor hematology following, appreciate recommendations discussed with PA oncology Mrs Zoe Santana -DVT prophylaxis with SCD's Discussed Condition With patient, nurse, PA oncology Mrs Zoe Santana Payton Massey MD Jul 14, 2017 12:20
[2017-07-14] MEDS: LEVOFLOXACIN 750 MG PREMIX INJ 150 ML IV SCH (12:49)
[2017-07-14 16:12] VITALS: BP 131/68; PULSE 80; RESP 17; TEMP 99.2; O2SAT 94
[2017-07-14 16:34] LABS: ALBUMIN 2.9 GM/DL (3.4-5.0); DIRECT BILIRUBIN ADULT 10.3 MG/DL (0.0-0.2); INDIRECT BILIRUBIN 9.7 MG/DL (0.0-0.8); TOTAL PROTEIN 6.3 GM/DL (6.4-8.2)
--- NOTE | 2017-07-14 17:59 | RADRPT ---
EXAM DATE/TIME: 07/14/2017 16:33 [facility] COMPARISON: No previous studies available for comparison. INDICATIONS : Bilateral arm pain. MEDICAL HISTORY : Sickle Cell disease. Depression. SURGICAL HISTORY : Colostomy. Liver biopsy. ENCOUNTER: Initial ACUITY: 1 day PAIN SCORE: 9/10 LOCATION: Bilateral arms. FINDINGS: RIGHT UPPER EXTREMITY: There is spontaneous flow documented in the brachial, basilic, cephalic, axillary, and subclavian vei ns. The vessels are compressible and augmentation response is documented. No filling defects are se en. The flow is phasic with respiration. Direction of flow in the jugular vein is caudal. LEFT UPPER EXTREMITY: There is spontaneous flow documented in the brachial, basilic, cephalic, axillary, and subclavian vei ns. The vessels are compressible and augmentation response is documented. No filling defects are se en. The flow is phasic with respiration. Direction of flow in the jugular vein is caudal. CONCLUSION: Normal examination. Triston Martins MD on July 14, 2017 at 17:58 Board Certified Radiologist. This report was verified electronically.
[2017-07-14 20:00] VITALS: BP_SYST 142; BP_SYST 82; BP_DIAS 80; PULSE 75; RESP 14; TEMP 99.2; O2SAT 94
--- NOTE | 2017-07-14 22:16 | RADRPT ---
EXAM DATE/TIME: 07/14/2017 18:37 [facility] COMPARISON: No previous studies available for comparison. INDICATIONS : Right humerus pain. RADIATION DOSE: 7.64 CTDIvol (mGy) MEDICAL HISTORY : Sickle cell disease. SURGICAL HISTORY : None. ENCOUNTER: Initial ACUITY: 1 day PAIN SCALE: 8/10 LOCATION: Right humerus TECHNIQUE: Volumetric scanning of the humerus was performed. Using automated exposure control and adjustment of the mA and/or kV according to patient size, radiation dose was kept as low as reasonably achievable to obtain optimal diagnostic quality images. DICOM format image data is available electronically for review and comparison. FINDINGS: BONES: No evidence of fracture. Alignment is within normal limits. JOINTS: No evidence of joint narrowing or effusion. SOFT TISSUES: Muscles, tendons and neurovascular structures are grossly unremarkable. No evidence of mass, organize d fluid collection, or foreign body. CONCLUSION: No acute disease. Omid Payne MD on July 14, 2017 at 22:13 Board Certified Radiologist. This report was verified electronically.
[2017-07-15] VITALS: BP 128/81; PULSE 78; RESP 16; RESP 46; TEMP 98.6; O2SAT 94
[2017-07-15] MEDS: SODIUM CHLOR 0.9% 1000 ML INJ 1,000 ML IV SCH ×3 (01:29→17:01)
[2017-07-15] MEDS: ONDANSETRON HCL 4 MG/2 ML VIAL IV PUSH PRN ×3 (03:39→21:14)
[2017-07-15] MEDS: HYDROmorphone HCL PF 2 MG/ML VIAL IV PUSH PRN ×4 (03:39→21:14)
[2017-07-15 08:00] VITALS: BP 136/76; PULSE 101; RESP 18; TEMP 98.8; O2SAT 90
[2017-07-15] MEDS: FOLIC ACID 1 MG TAB PO SCH (08:13)
[2017-07-15] MEDS: HYDROXYUREA 500 MG CAP PO SCH (08:14)
--- NOTE | 2017-07-15 10:06 | HHI.PR ---
Subjective Remarks Feels better today. Pain is better controlled and can move her arms v=better. Wants to take a shower No fever or chills no cough. No chest pain . Objective Vitals Vital Signs Date Time Temp Pulse Resp B/P (MAP) Pulse Ox O2 Delivery O2 Flow Rate FiO2 07/15/17 08:00 98.8 101 18 136/76 (96) 90 07/15/17 00:00 98.6 78 16 128/81 (97) 94 07/14/17 20:59 Nasal Cannula 2.00 07/14/17 20:56 Nasal Cannula 2.00 07/14/17 20:30 Nasal Cannula 2.00 07/14/17 20:00 99.2 75 14 82/ 94 07/14/17 20:00 142/80 (100) 07/14/17 17:08 2.00 07/14/17 16:12 99.2 80 17 131/68 (89) 94 07/14/17 11:36 98.5 78 16 126/78 (94) 95 I/O 07/14/17 07/14/17 07/14/17 07/15/17 07/15/17 07/15/17 07:00 15:00 23:00 07:00 15:00 23:00 Intake Total 890 ml 150 ml 1182 ml Output Total 800 ml 500 ml Balance 90 ml 150 ml 1182 ml -500 ml Intake Oral 480 ml 1182 ml IV Total 150 ml Packed Cells 400 ml Blood Product IV Normal Saline Flush 10 ml Output Urine Total 800 ml 500 ml # Voids 3 # Bowel Movements 0 0 Result Diagram: 07/14/17 0553 07/14/17 0553 Imaging Last Impressions Upper Extremity Ultrasound 07/14/17 0000 Signed Impressions: Service Date/Time: July 16:33 - CONCLUSION: Normal examination. Triston Martins MD Upper Extremity CT 07/14/17 0000 Signed Impressions: Service Date/Time: July 18:37 - CONCLUSION: No acute disease. Omid Payne MD Chest X-Ray 07/14/17 0000 Signed Impressions: Service Date/Time: July 10:55 - CONCLUSION: In the right lung base there is a small infiltrate with a small associated pleural effusion. Yaakov Stevenson MD Objective Remarks GENERAL: This is a well-nourished, well-developed patient, in no apparent distress. CARDIOVASCULAR: Regular rate and rhythm without murmurs, gallops, or rubs. RESPIRATORY: Clear to auscultation. Breath sounds equal bilaterally. No wheezes , rales, or rhonchi. GASTROINTESTINAL: Abdomen soft, non-tender, nondistended. No hepato-splenomegaly , or palpable masses. No guarding. MUSCULOSKELETAL: Extremities without clubbing, cyanosis, or edema. No joint tenderness, effusion, or edema noted. No calf tenderness. Negative Homans sign bilaterally. NEUROLOGICAL: Awake and alert. Cranial nerves II through XII intact. Motor and sensory grossly within normal limits. Five out of 5 muscle strength in all muscle groups. Normal speech. A/P Problem List: (1) Sickle cell crisis ICD Code: D57.00 - Hb-SS disease with crisis, unspecified Status: Acute Assessment and Plan Sickle cell painful crisis Hemoglobin of 6.1 on admission received 1 unit of blood repeat hemoglobin 7.3 s/p of PRBC 07/11 continue hydroxyurea and folic acid- Monitor H/h 07/13/17 patient with drop in HGB of 6.6 . Transfused 2 U PRBC. repeat HGB 9.1 Monitor AND TRANSFUSE IF <7 continue with IV fluid and pain control IV dilaudid patient says PO meds doesn' t help much and she is still with pain - Give extra dose of dilaudid 3/1/ 1 mg as patient with significant pain in her right arm . CXR reviewed right base PNA and small pleural effusion Started IV abx levaquin check blood cx Add IS Also with severe pain in her right shoulder. patient has pain in her shoulders and arms . Doppler US bilat arms negative LDH and retic count high , bili high monitor hematology following, appreciate recommendations discussed with PA oncology Mrs Zoe Santana -DVT prophylaxis with SCD's Discussed Condition With patient, nurse, PA oncology Mrs Zoe Santana DC poss this weekend if improves and bili improves Payton Massey MD Jul 15, 2017 10:06
[2017-07-15 10:43] VITALS: O2SAT 90
--- NOTE | 2017-07-15 11:57 | PD.ONC.PN ---
Subjective Subjective Remarks Afebrile overnight. patient resting in bed in nad. states she no longer has chest pain. denies pain in her arm. states she feels ready to go home. Objective Data Date Time Temp Pulse Resp B/P (MAP) Pulse Ox O2 Delivery O2 Flow Rate FiO2 07/15/17 10:43 90 21 07/15/17 08:00 98.8 101 18 136/76 (96) 90 07/15/17 00:00 98.6 78 16 128/81 (97) 94 07/14/17 20:59 Nasal Cannula 2.00 07/14/17 20:56 Nasal Cannula 2.00 07/14/17 20:30 Nasal Cannula 2.00 07/14/17 20:00 99.2 75 14 82/ 94 07/14/17 20:00 142/80 (100) 07/14/17 17:08 2.00 07/14/17 16:12 99.2 80 17 131/68 (89) 94 07/15/17 07/15/17 07/15/17 07:00 15:00 23:00 Output Total 500 ml Balance -500 ml Result Diagram: 07/14/17 0553 07/14/17 0553 Culture Results Microbiology Date/Time Source Procedure Growth Status 07/14/17 20:37 Blood Peripheral Aerobic Blood Culture - Preliminary NO GROWTH IN 1 DAY Resulted 07/14/17 20:37 Blood Peripheral Anaerobic Blood Culture - Preliminary NO GROWTH IN 1 DAY Resulted 07/14/17 20:33 Blood Peripheral Aerobic Blood Culture - Preliminary NO GROWTH IN 1 DAY Resulted 07/14/17 20:33 Blood Peripheral Anaerobic Blood Culture - Preliminary NO GROWTH IN 1 DAY Resulted Administered Medications Medications (Trade) Dose Ordered Sig/Arjun Route PRN Reason Start Time Stop Time Status Last Admin Dose Admin Sodium Chloride 1,000 ml @ 125 mls/hr Q8H IV 07/11/17 09:15 07/15/17 09:55 Ondansetron HCl (Zofran Inj) 4 mg Q8HR PRN IV PUSH NAUSEA 07/11/17 14:00 07/15/17 08:15 Folic Acid (Folate) 1 mg DAILY PO 07/11/17 09:15 07/15/17 08:13 Hydroxyurea (Hydrea) 500 mg DAILY PO 07/11/17 09:15 07/15/17 08:14 Acetaminophen (Tylenol) 650 mg Q4H PRN PO SEE LABEL COMMENTS 07/13/17 14:15 07/13/17 15:42 Diphenhydramine HCl (Benadryl) 25 mg Q4H PRN PO SEE LABEL COMMENTS 07/13/17 14:15 07/13/17 15:41 Hydromorphone HCl (Dilaudid Pf Inj) 1 mg Q6HR PRN IV PUSH BREAKTHROUGH PAIN 07/14/17 15:00 07/15/17 09:56 Levofloxacin/ Dextrose 150 ml @ 100 mls/hr Q24H IV 07/14/17 13:00 07/14/17 12:49 Objective Remarks GENERAL: young woman, lying in bed, sleeping. awakens to my voice. SKIN: Warm and dry. HEAD: Normocephalic. EYES: No injection or drainage. NECK: Supple, trachea midline. CARDIOVASCULAR: Regular rate and rhythm without murmurs. RESPIRATORY: Breath sounds equal bilaterally. No accessory muscle use. GASTROINTESTINAL: Abdomen soft, non-tender, nondistended. EXTREMITIES: No cyanosis NEUROLOGICAL: awake but fatigued. normal speech. Assessment/Plan Problem List: (1) Sickle cell crisis ICD Codes: D57.00 - Hb-SS disease with crisis, unspecified Status: Acute Plan: 07/14: continue IVF, pain management, monitor hgb, bilirubin. recommend waiting until patient's bilirubin is improved before discharging. --on folic acid, hydromorphone, Hydrea Assessment 21y/o female admitted with sickle cell painful crisis. Attending Statement The exam, history, and the medical decision-making described in the above note were completed with the assistance of the mid-level provider. I reviewed and agree with the findings presented. I attest that I had a [id number] encounter with the patient on the same day, and personally performed and documented my assessment and findings in the medical record. pain is better. Wants to go home. Still hemolyzing continue to monitor labs. Tiffany Santana Jul 15, 2017 11:57 Dirk Green MD Jul 15, 2017 16:13
[2017-07-15 11:59] VITALS: BP 130/73; PULSE 89; RESP 18; TEMP 98.4; O2SAT 90
[2017-07-15] MEDS: LEVOFLOXACIN 750 MG PREMIX INJ 150 ML IV SCH (12:45)
[2017-07-15 13:05] LABS: AUTOMATED NEUTROPHIL # 17.4 TH/MM3 (1.8-7.7); BASOPHIL # 0.1 TH/MM3 (0-0.2); BASOPHIL % 0.6 % (0.0-2.0); EOSINOPHIL # 0.1 TH/MM3 (0-0.4); EOSINOPHIL % 0.3 % (0.0-4.0); HEMATOCRIT 23.7 % (35.0-46.0); HEMOGLOBIN 8.4 GM/DL (11.6-15.3); LYMPH % 7.2 % (9.0-44.0); LYMPHOCYTE # 1.5 TH/MM3 (1.0-4.8); MEAN CELL VOLUME 91.3 FL (80.0-100.0); MEAN CORPUSCULAR HEMOGLOBIN 32.4 PG (27.0-34.0); MEAN CORPUSCULAR HGB CONC 35.5 % (32.0-36.0); MONO % 9.9 % (0.0-8.0); MONOCYTE # 2.1 TH/MM3 (0-0.9); PLATELET COUNT 379 TH/MM3 (150-450); RED CELL DISTRIBUTION WIDTH 22.3 % (11.6-17.2); WHITE BLOOD COUNT 21.2 TH/MM3 (4.0-11.0)
[2017-07-15 13:26] LABS: ALBUMIN 2.9 GM/DL (3.4-5.0); ALT (GPT) 43 U/L (9-42); AST (GOT) 40 U/L (16-38); BLOOD UREA NITROGEN 10 MG/DL (7-18); CALCIUM 8.7 MG/DL (8.5-10.1); CHLORIDE 100 MEQ/L (98-107); CREATININE 0.52 MG/DL (0.50-1.00); GLOMERULAR FILTRATION RATE 182 ML/MIN (>89); GLUCOSE,RANDOM 78 MG/DL (74-106); SODIUM (NA) 137 MEQ/L (136-145)
[2017-07-15] MEDS ORDERED: FOLI400T PO (13:27)
[2017-07-15] MEDS ORDERED: HYDR500C PO (13:27)
--- NOTE | 2017-07-15 13:27 | HHI.DS ---
Discharge Summary Admission Date Jul 11, 2017 at 09:50 Discharge Date: Jul 19, 2017 Admitting Diagnosis sickle cell pain crisis, anemia, (1) Sickle cell crisis ICD Code: D57.00 - Hb-SS disease with crisis, unspecified Diagnosis: Principal Status: Acute Procedures S/p cbd stent retrieval 07/18. Brief History - From Admission patient is a 21 y/o female with history of sickle cell disease who presented to ER with generalized body ache. she says that the pain started last night. she's complaining of pain to the legs,arms, back and chest. she came to ER last night and was discharged home. however because of worsening pain she decided to come back. she's being followed up by her tie cutter in [place]. CBC/BMP: 07/15/17 1211 07/15/17 1211 Significant Findings Laboratory Tests Test 07/13/17 13:10 07/14/17 05:53 07/15/17 12:11 White Blood Count 20.7 TH/MM3 (4.0-11.0) 19.0 TH/MM3 (4.0-11.0) 21.2 TH/MM3 (4.0-11.0) Red Blood Count 1.85 MIL/MM3 (4.00-5.30) 2.87 MIL/MM3 (4.00-5.30) 2.60 MIL/MM3 (4.00-5.30) Hemoglobin 6.6 GM/DL (11.6-15.3) 9.4 GM/DL (11.6-15.3) 8.4 GM/DL (11.6-15.3) Hematocrit 18.0 % (35.0-46.0) 26.5 % (35.0-46.0) 23.7 % (35.0-46.0) Mean Corpuscular Hemoglobin 35.7 PG (27.0-34.0) Mean Corpuscular Hemoglobin Concent 36.7 % (32.0-36.0) Red Cell Distribution Width 26.9 % (11.6-17.2) 24.2 % (11.6-17.2) 22.3 % (11.6-17.2) Neutrophils (%) (Auto) 81.9 % (16.0-70.0) 80.8 % (16.0-70.0) 82.0 % (16.0-70.0) Neutrophils # (Auto) 16.9 TH/MM3 (1.8-7.7) 15.4 TH/MM3 (1.8-7.7) 17.4 TH/MM3 (1.8-7.7) Monocytes # (Auto) 1.7 TH/MM3 (0-0.9) 1.6 TH/MM3 (0-0.9) 2.1 TH/MM3 (0-0.9) Neutrophils % (Manual) 86 % (16-70) 81 % (16-70) Lymphocytes % 6 % (9-44) Neutrophils # (Manual) 18.0 TH/MM3 (1.8-7.7) 16.0 TH/MM3 (1.8-7.7) Nucleated Red Blood Cells 5 /100 WBC (0-0) 5 /100 WBC (0-0) Polychromasia 2.0 % (0.0-1.9) 2.2 % (0.0-1.9) Sickle Cells 1+ (NORMAL) 1+ (NORMAL) Target Cells 1+ (NORMAL) 1+ (NORMAL) Monocytes (%) (Auto) 8.5 % (0.0-8.0) 9.9 % (0.0-8.0) Reticulocyte Count 6.7 % (0.4-3.0) Absolute Reticulocyte Count 193.6 MIL/L (20.0-150.0) Blood Urea Nitrogen 6 MG/DL (7-18) Creatinine 0.49 MG/DL (0.50-1.00) Random Glucose 69 MG/DL (74-106) Calcium Level 8.3 MG/DL (8.5-10.1) Lactate Dehydrogenase 484 U/L (84-246) Total Bilirubin 20.0 MG/DL (0.2-1.0) Direct Bilirubin 10.3 MG/DL (0.0-0.2) Indirect Bilirubin 9.7 MG/DL (0.0-0.8) Aspartate Amino Transf (AST/SGOT) 41 U/L (16-38) 40 U/L (16-38) Alanine Aminotransferase (ALT/SGPT) 53 U/L (9-42) 43 U/L (9-42) Alkaline Phosphatase 128 U/L (45-117) Total Protein 6.3 GM/DL (6.4-8.2) Albumin 2.9 GM/DL (3.4-5.0) 2.9 GM/DL (3.4-5.0) Lymphocytes (%) (Auto) 7.2 % (9.0-44.0) Imaging Last Impressions GI Procedure 07/18/17 0000 Signed Impressions: Service Date/Time: Tuesday, July 18, 2017 10:34 - CONCLUSION: ERCP as above. Neto Love MD FACR Chest X-Ray 07/18/17 0000 Signed Impressions: Service Date/Time: Tuesday, July 18, 2017 13:30 - CONCLUSION: Cardiomegaly. No acute pulmonary disease. Pancho Aguirre MD Liver Ultrasound 07/16/17 0000 Signed Impressions: Service Date/Time: Sunday, July 16, 2017 16:43 - CONCLUSION: Mildly prominent common bile duct up to 1.1 cm with stent in place and choledocholithiasis. Azael Nolasco MD Upper Extremity Ultrasound 07/14/17 0000 Signed Impressions: Service Date/Time: July 16:33 - CONCLUSION: Normal examination. Triston Martins MD Upper Extremity CT 07/14/17 0000 Signed Impressions: Service Date/Time: July 18:37 - CONCLUSION: No acute disease. Omid Payne MD PE at Discharge GENERAL: This is a well-nourished, well-developed patient, in no apparent distress. CARDIOVASCULAR: Regular rate and rhythm without murmurs, gallops, or rubs. RESPIRATORY: Clear to auscultation. Breath sounds equal bilaterally. No wheezes , rales, or rhonchi. GASTROINTESTINAL: Abdomen soft, non-tender, nondistended. No hepato-splenomegaly , or palpable masses. No guarding. MUSCULOSKELETAL: Extremities without clubbing, cyanosis, or edema. No joint tenderness, effusion, or edema noted. No calf tenderness. Negative Homans sign bilaterally. NEUROLOGICAL: Awake and alert. Cranial nerves II through XII intact. Motor and sensory grossly within normal limits. Five out of 5 muscle strength in all muscle groups. Normal speech. Hospital Course Sickle cell painful crisis Hemoglobin of 6.1 on admission received 1 unit of blood repeat hemoglobin 7.3 Dilated CBD 1.1 with previous stent placed, with bilirubinemia. Choledocholithiasis.Consult gI for further eval and recommendations. US reviewed. ERCP/stent removal planned 07/18/17. IV antibiotics. Dr. Mayberry FF s/p of PRBC 07/11 continue hydroxyurea and folic acid- Monitor H/h 07/13/17 patient with drop in HGB of 6.6 . Transfused 2 U PRBC. repeat HGB 9.1 Monitor AND TRANSFUSE IF <7 continue with IV fluid and pain control IV dilaudid patient says PO meds doesn' t help much and she is still with pain - Give extra dose of dilaudid 3// 1 mg as patient with significant pain in her right arm . CXR reviewed right base PNA and small pleural effusion Started IV abx levaquin check blood cx ntd Add IS Also with severe pain in her right shoulder. patient has pain in her shoulders and arms . Doppler US bilat arms negative LDH and retic count high , bili high monitor . Bili is trending down hematology following, appreciate recommendations discussed with PA oncology Mrs Zoe Santana -DVT prophylaxis with SCD's Discussed Condition With patient, nurse, PA oncology Mrs Zoe Santana S/p cbd stent retrieval 07/18. Bili is trending down seen by hem/onc cleared patient for DC . Patient improved. DC home in stable condition to follow up as oP with pCP and consultants. Pt Condition on Discharge: Stable Discharge Disposition: Discharge Home Discharge Time: > 30 minutes Discharge Instructions DIET: Follow Instructions for: As Tolerated, No Restrictions Follow up Referrals: Appointment for Follow Up - 2 Weeks @ HEMOTOLOGY Oncology/Hematology - 1 Week PCP Follow-up - 2-3 Days PCP Follow-up - 2-3 Days New Medications: Oxycodone (Oxycodone) 10 Mg Tab 10 MG PO Q4HR for Pain Management, #30 TAB 0 Refills Continued Medications: Folic Acid (Folic Acid) 0.4 Mg Tab 1 MG PO DAILY for Nutritional Supplement, #30 TAB 0 Refills (This prescription has been renewed) Hydroxyurea (Hydrea) 500 Mg Cap 500 MG PO DAILY for SCA, #30 CAP 0 Refills (This prescription has been renewed) Payton Massey MD Jul 15, 2017 13:27
[2017-07-15 13:28] LABS: ALKALINE PHOSPHATASE 128 U/L (45-117); TOTAL BILIRUBIN ADULT 19.2 MG/DL (0.2-1.0); TOTAL PROTEIN 6.5 GM/DL (6.4-8.2)
[2017-07-15] MEDS ORDERED: OXYC-395 PO (13:29)
[2017-07-15 13:32] LABS: DIRECT BILIRUBIN ADULT 8.7 MG/DL (0.0-0.2); INDIRECT BILIRUBIN 10.3 MG/DL (0.0-0.8)
[2017-07-15 15:34] LABS: BANDS 3 % (0-6); CORRECTED NUCLEATED RBC 5 /100 WBC (0-0); LYMPHOCYTES 5 % (9-44); METAMYELOCYTES 1 % (0-1); MONOCYTES 8 % (0-8); NEUTROPHIL # MANUAL DIFF 18.4 TH/MM3 (1.8-7.7); NUCLEATED RED BLOOD CELL 5 (0-0); POLYS (SEG NEUTROPHILS) 83 % (16-70)
[2017-07-15 15:35] LABS: POLYCHROMASIA 2.3 % (0.0-1.9); SICKLE CELLS 1+ (NORMAL); TARGET CELLS 1+ (NORMAL)
[2017-07-15 15:51] VITALS: BP 140/84; PULSE 74; RESP 18; TEMP 98.8; O2SAT 90
[2017-07-15 22:23] VITALS: BP 144/98; PULSE 87; RESP 16; TEMP 99; O2SAT 94
[2017-07-16] VITALS (7 sets, daily range): BP systolic 134–151; BP diastolic 82–97; PULSE 67–91; RESP 18–20; TEMP 98.3–100; O2SAT 90–100
[2017-07-16] MEDS: SODIUM CHLOR 0.9% 1000 ML INJ 1,000 ML IV SCH ×3 (00:44→20:24)
[2017-07-16] MEDS: HYDROmorphone HCL PF 2 MG/ML VIAL IV PUSH PRN ×4 (02:52→22:41)
[2017-07-16] MEDS: HYDROXYUREA 500 MG CAP PO SCH (09:00)
[2017-07-16] MEDS: FOLIC ACID 1 MG TAB PO SCH (09:00)
[2017-07-16] MEDS: LEVOFLOXACIN 750 MG PREMIX INJ 150 ML IV SCH (12:30)
--- NOTE | 2017-07-16 14:32 | PD.ONC.PN ---
Subjective Subjective Remarks Low grade fevers today Pt reports pain in her chest is somewhat improved No focal abdominal pain Objective Data Date Time Temp Pulse Resp B/P (MAP) Pulse Ox O2 Delivery O2 Flow Rate FiO2 07/16/17 12:00 100.0 85 20 145/85 (105) 90 07/16/17 11:25 18 07/16/17 08:00 99.7 84 20 145/92 (109) 91 07/16/17 08:00 Room Air 2.00 21 07/16/17 05:39 99.0 91 18 145/88 (107) 100 07/16/17 04:00 Room Air 07/16/17 02:24 99.6 86 18 148/82 (104) 91 07/16/17 00:00 Room Air 07/15/17 22:23 99.0 87 16 144/98 (113) 94 07/15/17 20:00 Nasal Cannula 2.00 07/15/17 15:51 98.8 74 18 140/84 (102) 90 07/16/17 07/16/17 07/16/17 07:00 15:00 23:00 Intake Total 2000 ml 350 ml Balance 2000 ml 350 ml Result Diagram: 07/15/17 1211 07/15/17 1211 Culture Results Microbiology Date/Time Source Procedure Growth Status 07/14/17 20:37 Blood Peripheral Aerobic Blood Culture - Preliminary NO GROWTH IN 2 DAYS Resulted 07/14/17 20:37 Blood Peripheral Anaerobic Blood Culture - Preliminary NO GROWTH IN 2 DAYS Resulted 07/14/17 20:33 Blood Peripheral Aerobic Blood Culture - Preliminary NO GROWTH IN 2 DAYS Resulted 07/14/17 20:33 Blood Peripheral Anaerobic Blood Culture - Preliminary NO GROWTH IN 2 DAYS Resulted Administered Medications Medications (Trade) Dose Ordered Sig/Arjun Route PRN Reason Start Time Stop Time Status Last Admin Dose Admin Sodium Chloride 1,000 ml @ 125 mls/hr Q8H IV 07/11/17 09:15 07/16/17 06:17 Ondansetron HCl (Zofran Inj) 4 mg Q8HR PRN IV PUSH NAUSEA 07/11/17 14:00 07/15/17 21:14 Folic Acid (Folate) 1 mg DAILY PO 07/11/17 09:15 07/16/17 09:00 Hydroxyurea (Hydrea) 500 mg DAILY PO 07/11/17 09:15 07/16/17 09:00 Acetaminophen (Tylenol) 650 mg Q4H PRN PO SEE LABEL COMMENTS 07/13/17 14:15 07/13/17 15:42 Diphenhydramine HCl (Benadryl) 25 mg Q4H PRN PO SEE LABEL COMMENTS 07/13/17 14:15 07/13/17 15:41 Hydromorphone HCl (Dilaudid Pf Inj) 1 mg Q6HR PRN IV PUSH BREAKTHROUGH PAIN 07/14/17 15:00 07/16/17 10:55 Levofloxacin/ Dextrose 150 ml @ 100 mls/hr Q24H IV 07/14/17 13:00 07/16/17 12:30 Objective Remarks GENERAL: Young female, resting in bed in no obvious distress. SKIN: Warm and dry. HEAD: Normocephalic. EYES: No injection or drainage. NECK: Supple, trachea midline. CARDIOVASCULAR: Regular rate and rhythm without murmurs. RESPIRATORY: Breath sounds equal bilaterally. No accessory muscle use. GASTROINTESTINAL: Abdomen soft, non-tender, nondistended. EXTREMITIES: No cyanosis, or edema. MUSCULOSKELETAL: Adequate muscle tone. NEUROLOGICAL: No obvious focal deficit. Awake, alert, and oriented x3. Assessment/Plan Problem List: (1) Sickle cell crisis ICD Codes: D57.00 - Hb-SS disease with crisis, unspecified Status: Acute Plan: --on folic acid, hydromorphone, Hydrea Assessment 21y/o female admitted with sickle cell painful crisis. Plan 1. Obtain US of the liver to evaluate hyperbilirubinemia 2. No transfusion today 3. Monitor CBC Stephanie Currie Jul 16, 2017 14:32
--- NOTE | 2017-07-16 17:08 | HHI.PR ---
Subjective Remarks Feels worse today Still with pain in her shoulders left > right. .no cough no chest pain .no n/v/d/c. No appetite. Not eating much Objective Vitals Vital Signs Date Time Temp Pulse Resp B/P (MAP) Pulse Ox O2 Delivery O2 Flow Rate FiO2 07/16/17 16:00 98.3 67 20 151/97 (115) 93 07/16/17 12:00 100.0 85 20 145/85 (105) 90 07/16/17 11:25 18 07/16/17 08:00 99.7 84 20 145/92 (109) 91 07/16/17 08:00 Room Air 2.00 21 07/16/17 05:39 99.0 91 18 145/88 (107) 100 07/16/17 04:00 Room Air 07/16/17 02:24 99.6 86 18 148/82 (104) 91 07/16/17 00:00 Room Air 07/15/17 22:23 99.0 87 16 144/98 (113) 94 07/15/17 20:00 Nasal Cannula 2.00 I/O 07/15/17 07/15/17 07/15/17 07/16/17 07/16/17 07/16/17 07:00 15:00 23:00 07:00 15:00 23:00 Intake Total 1000 ml 2000 ml 350 ml Output Total 500 ml Balance -500 ml 1000 ml 2000 ml 350 ml Intake Oral 200 ml IV Total 1000 ml 2000 ml 150 ml Output Urine Total 500 ml # Voids 2 1 # Bowel Movements 0 Result Diagram: 07/15/17 1211 07/15/17 1211 Imaging Last Impressions Upper Extremity Ultrasound 07/14/17 0000 Signed Impressions: Service Date/Time: July 16:33 - CONCLUSION: Normal examination. Triston Martins MD Upper Extremity CT 07/14/17 0000 Signed Impressions: Service Date/Time: July 18:37 - CONCLUSION: No acute disease. Omid Payne MD Chest X-Ray 07/14/17 0000 Signed Impressions: Service Date/Time: July 10:55 - CONCLUSION: In the right lung base there is a small infiltrate with a small associated pleural effusion. Yaakov Stevenson MD Objective Remarks GENERAL: This is a well-nourished, well-developed patient, in no apparent distress. CARDIOVASCULAR: Regular rate and rhythm without murmurs, gallops, or rubs. RESPIRATORY: Clear to auscultation. Breath sounds equal bilaterally. No wheezes , rales, or rhonchi. GASTROINTESTINAL: Abdomen soft, non-tender, nondistended. No hepato-splenomegaly , or palpable masses. No guarding. MUSCULOSKELETAL: Extremities without clubbing, cyanosis, or edema. No joint tenderness, effusion, or edema noted. No calf tenderness. Negative Homans sign bilaterally. NEUROLOGICAL: Awake and alert. Cranial nerves II through XII intact. Motor and sensory grossly within normal limits. Five out of 5 muscle strength in all muscle groups. Normal speech. A/P Problem List: (1) Sickle cell crisis ICD Code: D57.00 - Hb-SS disease with crisis, unspecified Status: Acute Assessment and Plan Sickle cell painful crisis Hemoglobin of 6.1 on admission received 1 unit of blood repeat hemoglobin 7.3 s/p of PRBC 07/11 continue hydroxyurea and folic acid- Monitor H/h 07/13/17 patient with drop in HGB of 6.6 . Transfused 2 U PRBC. repeat HGB 9.1 Monitor AND TRANSFUSE IF <7 continue with IV fluid and pain control IV dilaudid patient says PO meds doesn' t help much and she is still with pain - Give extra dose of dilaudid 3/1/ 1 mg as patient with significant pain in her right arm . CXR reviewed right base PNA and small pleural effusion Started IV abx levaquin check blood cx Add IS Also with severe pain in her right shoulder. patient has pain in her shoulders and arms . Doppler US bilat arms negative LDH and retic count high , bili high monitor hematology following, appreciate recommendations discussed with PA oncology Mrs Zoe Santana -DVT prophylaxis with SCD's Discussed Condition With patient, nurse, PA oncology Mrs Zoe Santana DC poss this weekend if improves and bili improves Payton Massey MD Jul 16, 2017 17:08
[2017-07-16 17:26] LABS: AUTOMATED NEUTROPHIL # 16.1 TH/MM3 (1.8-7.7); BASOPHIL # 0.2 TH/MM3 (0-0.2); BASOPHIL % 0.8 % (0.0-2.0); EOSINOPHIL # 0.1 TH/MM3 (0-0.4); EOSINOPHIL % 0.4 % (0.0-4.0); HEMATOCRIT 23.9 % (35.0-46.0); HEMOGLOBIN 8.5 GM/DL (11.6-15.3); LYMPH % 10.8 % (9.0-44.0); LYMPHOCYTE # 2.3 TH/MM3 (1.0-4.8); MEAN CELL VOLUME 93.4 FL (80.0-100.0); MEAN CORPUSCULAR HGB CONC 35.4 % (32.0-36.0); MONO % 11.1 % (0.0-8.0); MONOCYTE # 2.3 TH/MM3 (0-0.9); NEUT % 76.9 % (16.0-70.0); PLATELET COUNT 426 TH/MM3 (150-450); RED BLOOD COUNT 2.56 MIL/MM3 (4.00-5.30); RED CELL DISTRIBUTION WIDTH 22.8 % (11.6-17.2)
--- NOTE | 2017-07-16 17:47 | RADRPT ---
EXAM DATE/TIME: 07/16/2017 16:43 [facility] COMPARISON: No previous studies available for comparison. INDICATIONS : Increased lab values. MEDICAL HISTORY : Sickle Cell disease. Depression. SURGICAL HISTORY : Colostomy. Liver biopsy. ENCOUNTER: Initial ACUITY: 2 days PAIN SCORE: 7/10 LOCATION: Bilateral upper quadrant MEASUREMENTS: LIVER: 20.2 cm length COMMON DUCT: 11 mm RIGHT KIDNEY: 12.3 x 5.5 x 4.3 cm SPLEEN: 5.6 cm length FINDINGS: LIVER: Normal echotexture without focal lesion or ductal dilatation. COMMON DUCT: There is a stent in the common bile duct as well as a shadowing echogenic focus measuring 1.4 cm with in the common bile duct felt to represent a choledocholith. GALLBLADDER: Cholecystectomy. PANCREAS: The visualized portions are within normal limits. RIGHT KIDNEY: No hydronephrosis, stone or mass. SPLEEN: Small in size. CONCLUSION: Mildly prominent common bile duct up to 1.1 cm with stent in place and choledocholithiasis. Azael Nolasco MD on July 16, 2017 at 17:45 Board Certified Radiologist. This report was verified electronically.
[2017-07-16 17:56] LABS: ALBUMIN 2.9 GM/DL (3.4-5.0); AST (GOT) 46 U/L (16-38); BICARBONATE 27.4 MEQ/L (21.0-32.0); BLOOD UREA NITROGEN 10 MG/DL (7-18); CALCIUM 8.6 MG/DL (8.5-10.1); CHLORIDE 98 MEQ/L (98-107); CREATININE 0.55 MG/DL (0.50-1.00); GLOMERULAR FILTRATION RATE 171 ML/MIN (>89); GLUCOSE,RANDOM 82 MG/DL (74-106); SODIUM (NA) 135 MEQ/L (136-145)
[2017-07-16 17:57] LABS: ALT (GPT) 40 U/L (9-42); BANDS 5 % (0-6); BASOPHILS 1 % (0-2); CORRECTED NUCLEATED RBC 4 /100 WBC (0-0); LYMPHOCYTES 13 % (9-44); METAMYELOCYTES 1 % (0-1); MONOCYTES 14 % (0-8); NEUTROPHIL # MANUAL DIFF 15.1 TH/MM3 (1.8-7.7); NUCLEATED RED BLOOD CELL 4 (0-0); POLYS (SEG NEUTROPHILS) 66 % (16-70)
[2017-07-16 17:59] LABS: DOHLE BODIES PRESENT (NONE SEEN); POLYCHROMASIA 2.5 % (0.0-1.9); SICKLE CELLS 1+ (NORMAL); TARGET CELLS 1+ (NORMAL); TOXIC VACUOLATION PRESENT (NONE SEEN)
[2017-07-16 18:03] LABS: ALKALINE PHOSPHATASE 118 U/L (45-117); TOTAL BILIRUBIN ADULT 16.4 MG/DL (0.2-1.0); TOTAL PROTEIN 6.7 GM/DL (6.4-8.2)
[2017-07-17] VITALS: BP 141/81; PULSE 66; RESP 16; TEMP 98.2; O2SAT 96
[2017-07-17 04:00] VITALS: BP 144/96; PULSE 69; RESP 18; TEMP 98.8; O2SAT 95
[2017-07-17] MEDS: SODIUM CHLOR 0.9% 1000 ML INJ 1,000 ML IV SCH ×3 (04:36→21:07)
[2017-07-17] MEDS: HYDROmorphone HCL PF 2 MG/ML VIAL IV PUSH PRN ×4 (04:38→22:45)
[2017-07-17 08:00] VITALS: BP 155/92; PULSE 72; RESP 23; TEMP 98.3; O2SAT 97
--- NOTE | 2017-07-17 08:56 | PD.ONC.PN ---
Subjective Subjective Remarks Tmax 100.0 yesterday afternoon Patient reports her pain is "so-so" Answering questions in one-word answers Denies focal abdominal pain Objective Data Date Time Temp Pulse Resp B/P (MAP) Pulse Ox O2 Delivery O2 Flow Rate FiO2 07/17/17 04:00 98.8 69 18 144/96 (112) 95 07/17/17 00:00 98.2 66 16 141/81 (101) 96 07/16/17 20:00 99.1 78 18 134/85 (101) 94 07/16/17 19:59 99 21 07/16/17 19:45 Room Air 07/16/17 17:09 18 07/16/17 16:00 98.3 67 20 151/97 (115) 93 07/16/17 12:00 100.0 85 20 145/85 (105) 90 07/17/17 07/17/17 07/17/17 07:00 15:00 23:00 Intake Total 1000 ml Balance 1000 ml Result Diagram: 07/16/17 1624 07/16/17 1624 Laboratory Results Laboratory Tests Test 07/16/17 16:24 White Blood Count 21.0 TH/MM3 Red Blood Count 2.56 MIL/MM3 Hemoglobin 8.5 GM/DL Hematocrit 23.9 % Mean Corpuscular Volume 93.4 FL Mean Corpuscular Hemoglobin 33.0 PG Mean Corpuscular Hemoglobin Concent 35.4 % Red Cell Distribution Width 22.8 % Platelet Count 426 TH/MM3 Mean Platelet Volume 8.0 FL Neutrophils (%) (Auto) 76.9 % Lymphocytes (%) (Auto) 10.8 % Monocytes (%) (Auto) 11.1 % Eosinophils (%) (Auto) 0.4 % Basophils (%) (Auto) 0.8 % Neutrophils # (Auto) 16.1 TH/MM3 Lymphocytes # (Auto) 2.3 TH/MM3 Monocytes # (Auto) 2.3 TH/MM3 Eosinophils # (Auto) 0.1 TH/MM3 Basophils # (Auto) 0.2 TH/MM3 CBC Comment AUTO DIFF Differential Total Cells Counted 100 Neutrophils % (Manual) 66 % Band Neutrophils % 5 % Lymphocytes % 13 % Monocytes % 14 % Basophils % 1 % Neutrophils # (Manual) 15.1 TH/MM3 Metamyelocytes 1 % Nucleated Red Blood Cells 4 /100 WBC Differential Comment FINAL DIFF MANUAL Toxic Vacuolation PRESENT Dohle Bodies PRESENT Platelet Estimate NORMAL Platelet Morphology Comment NORMAL Polychromasia 2.5 % Sickle Cells 1+ Target Cells 1+ Blood Urea Nitrogen 10 MG/DL Creatinine 0.55 MG/DL Random Glucose 82 MG/DL Total Protein 6.7 GM/DL Albumin 2.9 GM/DL Calcium Level 8.6 MG/DL Alkaline Phosphatase 118 U/L Aspartate Amino Transf (AST/SGOT) 46 U/L Alanine Aminotransferase (ALT/SGPT) 40 U/L Total Bilirubin 16.4 MG/DL Sodium Level 135 MEQ/L Potassium Level 3.5 MEQ/L Chloride Level 98 MEQ/L Carbon Dioxide Level 27.4 MEQ/L Anion Gap 10 MEQ/L Estimat Glomerular Filtration Rate 171 ML/MIN Culture Results Microbiology Date/Time Source Procedure Growth Status 07/14/17 20:37 Blood Peripheral Aerobic Blood Culture - Preliminary NO GROWTH IN 2 DAYS Resulted 07/14/17 20:37 Blood Peripheral Anaerobic Blood Culture - Preliminary NO GROWTH IN 2 DAYS Resulted 07/14/17 20:33 Blood Peripheral Aerobic Blood Culture - Preliminary NO GROWTH IN 2 DAYS Resulted 07/14/17 20:33 Blood Peripheral Anaerobic Blood Culture - Preliminary NO GROWTH IN 2 DAYS Resulted Administered Medications Medications (Trade) Dose Ordered Sig/Arjun Route PRN Reason Start Time Stop Time Status Last Admin Dose Admin Sodium Chloride 1,000 ml @ 125 mls/hr Q8H IV 07/11/17 09:15 07/17/17 04:36 Ondansetron HCl (Zofran Inj) 4 mg Q8HR PRN IV PUSH NAUSEA 07/11/17 14:00 07/15/17 21:14 Folic Acid (Folate) 1 mg DAILY PO 07/11/17 09:15 07/16/17 09:00 Hydroxyurea (Hydrea) 500 mg DAILY PO 07/11/17 09:15 07/16/17 09:00 Acetaminophen (Tylenol) 650 mg Q4H PRN PO SEE LABEL COMMENTS 07/13/17 14:15 07/13/17 15:42 Diphenhydramine HCl (Benadryl) 25 mg Q4H PRN PO SEE LABEL COMMENTS 07/13/17 14:15 07/13/17 15:41 Hydromorphone HCl (Dilaudid Pf Inj) 1 mg Q6HR PRN IV PUSH BREAKTHROUGH PAIN 07/14/17 15:00 07/17/17 04:38 Levofloxacin/ Dextrose 150 ml @ 100 mls/hr Q24H IV 07/14/17 13:00 07/16/17 12:30 Objective Remarks GENERAL: Young female, asleep in bed on approach. Awakens easily to verbal stimuli SKIN: Warm and dry. HEAD: Normocephalic. EYES: No injection or drainage. NECK: Supple, trachea midline. CARDIOVASCULAR: Regular rate and rhythm without murmurs. RESPIRATORY: Breath sounds equal bilaterally. No accessory muscle use. GASTROINTESTINAL: Abdomen soft, non-tender, nondistended. EXTREMITIES: No cyanosis, or edema. MUSCULOSKELETAL: Adequate muscle tone. NEUROLOGICAL: No obvious focal deficit. Awake, alert, and oriented x3. Assessment/Plan Problem List: (1) Sickle cell crisis ICD Codes: D57.00 - Hb-SS disease with crisis, unspecified Status: Acute Plan: --on folic acid, hydromorphone, Hydrea Assessment 21y/o female admitted with sickle cell painful crisis. Plan 1. Ultrasound of the liver showed prominent common bile duct with stent already in place with gallstone 2. Labs pending today however bilirubin from yesterday shows improvement 2. Agree with consulting GI 3. No transfusion today; monitor CBC, CMP Discussed with Stephanie Monique Jul 17, 2017 08:56
[2017-07-17] MEDS: FOLIC ACID 1 MG TAB PO SCH (09:42)
[2017-07-17] MEDS: HYDROXYUREA 500 MG CAP PO SCH (09:42)
[2017-07-17] MEDS: ONDANSETRON HCL 4 MG/2 ML VIAL IV PUSH PRN ×2 (10:24→16:46)
[2017-07-17 12:00] VITALS: BP 150/85; PULSE 73; RESP 20; TEMP 98.7; O2SAT 100
[2017-07-17] MEDS: LEVOFLOXACIN 750 MG PREMIX INJ 150 ML IV SCH (12:15)
--- NOTE | 2017-07-17 13:47 | PD.CONS ---
HPI History of Present Illness This is a 21 year old female who was initially admitted on 07/11/17 with generalized body aches to her arms back chest and legs. 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 She was seen to have elevated liver enzymes on 07/14/17 with bilirubin at 20, LFTs 41 AST, and ALT 53. Labs on 07/16/17 showed bilirubin at 16.4, LFTs 46/40 , and alkaline phosphatase 118. Liver ultrasound was performed which showed mildly prominent common bile duct up to 1.1 cm with stent in place and cholelithiasis. Patient was initially discharged according to the record on 07/03 but continued to feel bad and came back to the hospital with worsening generalized body aches. Currently she is denying any abdominal pain. Patient appears to be weak, and conversation is very brief. Symptoms include some nausea and vomiting, denies any diarrhea or constipation. (Yessica Carmen) [facility] [place] Past Medical History sickle cell disease. Cholelithiasis Past Surgical History cholecystectomy/ liver biopsy. Common bile duct stent in place (Yessica Carmen) Coded Allergies: No Known Allergies (Unverified Adverse Reaction, Unknown, 07/11/17) Medications Administered Medications Medications (Trade) Dose Ordered Sig/Arjun Route PRN Reason Start Time Stop Time Status Last Admin Dose Admin Sodium Chloride 1,000 ml @ 125 mls/hr Q8H IV 07/11/17 09:15 07/17/17 12:15 Ondansetron HCl (Zofran Inj) 4 mg Q8HR PRN IV PUSH NAUSEA 07/11/17 14:00 07/17/17 10:24 Folic Acid (Folate) 1 mg DAILY PO 07/11/17 09:15 07/16/17 09:00 Hydroxyurea (Hydrea) 500 mg DAILY PO 07/11/17 09:15 07/16/17 09:00 Acetaminophen (Tylenol) 650 mg Q4H PRN PO SEE LABEL COMMENTS 07/13/17 14:15 07/13/17 15:42 Diphenhydramine HCl (Benadryl) 25 mg Q4H PRN PO SEE LABEL COMMENTS 07/13/17 14:15 07/13/17 15:41 Hydromorphone HCl (Dilaudid Pf Inj) 1 mg Q6HR PRN IV PUSH BREAKTHROUGH PAIN 07/14/17 15:00 07/17/17 10:27 Levofloxacin/ Dextrose 150 ml @ 100 mls/hr Q24H IV 07/14/17 13:00 07/17/17 12:15 Family History Per the record sickle cell disease in sister. Social History no smoking, drinking or illicit drug abuse. (Yessica Carmen) Review of Systems Constitutional: COMPLAINS OF: Fatigue Psychiatric: COMPLAINS OF: Mood changes (withdrawn giving very simple answers) (Yessica Carmen) GI Exam Vitals I&O Vital Signs Date Time Temp Pulse Resp B/P (MAP) Pulse Ox O2 Delivery O2 Flow Rate FiO2 07/17/17 08:00 Room Air 07/17/17 08:00 98.3 72 23 155/92 (113) 97 07/17/17 04:00 98.8 69 18 144/96 (112) 95 07/17/17 00:00 98.2 66 16 141/81 (101) 96 07/16/17 20:00 99.1 78 18 134/85 (101) 94 07/16/17 19:59 99 21 07/16/17 19:45 Room Air 07/16/17 17:09 18 07/16/17 16:00 98.3 67 20 151/97 (115) 93 I/O 07/16/17 07/16/17 07/16/17 07/17/17 07/17/17 07/17/17 07:00 15:00 23:00 07:00 15:00 23:00 Intake Total 2000 ml 350 ml 1300 ml 1000 ml Balance 2000 ml 350 ml 1300 ml 1000 ml Intake Oral 200 ml 300 ml IV Total 2000 ml 150 ml 1000 ml 1000 ml # Voids 2 1 1 2 # Bowel Movements 0 1 Imaging Last Impressions Liver Ultrasound 07/16/17 0000 Signed Impressions: Service Date/Time: Sunday, July 16, 2017 16:43 - CONCLUSION: Mildly prominent common bile duct up to 1.1 cm with stent in place and choledocholithiasis. Azael Nolasco MD Upper Extremity Ultrasound 07/14/17 0000 Signed Impressions: Service Date/Time: July 16:33 - CONCLUSION: Normal examination. Triston Martins MD Upper Extremity CT 07/14/17 0000 Signed Impressions: Service Date/Time: July 18:37 - CONCLUSION: No acute disease. Omid Payne MD Chest X-Ray 07/14/17 0000 Signed Impressions: Service Date/Time: July 10:55 - CONCLUSION: In the right lung base there is a small infiltrate with a small associated pleural effusion. Yaakov Stevenson MD Laboratory Test 07/16/17 16:24 White Blood Count 21.0 TH/MM3 Red Blood Count 2.56 MIL/MM3 Hemoglobin 8.5 GM/DL Hematocrit 23.9 % Mean Corpuscular Volume 93.4 FL Mean Corpuscular Hemoglobin 33.0 PG Mean Corpuscular Hemoglobin Concent 35.4 % Red Cell Distribution Width 22.8 % Platelet Count 426 TH/MM3 Mean Platelet Volume 8.0 FL Neutrophils (%) (Auto) 76.9 % Lymphocytes (%) (Auto) 10.8 % Monocytes (%) (Auto) 11.1 % Eosinophils (%) (Auto) 0.4 % Basophils (%) (Auto) 0.8 % Neutrophils # (Auto) 16.1 TH/MM3 Lymphocytes # (Auto) 2.3 TH/MM3 Monocytes # (Auto) 2.3 TH/MM3 Eosinophils # (Auto) 0.1 TH/MM3 Basophils # (Auto) 0.2 TH/MM3 CBC Comment AUTO DIFF Differential Total Cells Counted 100 Neutrophils % (Manual) 66 % Band Neutrophils % 5 % Lymphocytes % 13 % Monocytes % 14 % Basophils % 1 % Neutrophils # (Manual) 15.1 TH/MM3 Metamyelocytes 1 % Nucleated Red Blood Cells 4 /100 WBC Differential Comment FINAL DIFF MANUAL Toxic Vacuolation PRESENT Dohle Bodies PRESENT Platelet Estimate NORMAL Platelet Morphology Comment NORMAL Polychromasia 2.5 % Sickle Cells 1+ Target Cells 1+ Blood Urea Nitrogen 10 MG/DL Creatinine 0.55 MG/DL Random Glucose 82 MG/DL Total Protein 6.7 GM/DL Albumin 2.9 GM/DL Calcium Level 8.6 MG/DL Alkaline Phosphatase 118 U/L Aspartate Amino Transf (AST/SGOT) 46 U/L Alanine Aminotransferase (ALT/SGPT) 40 U/L Total Bilirubin 16.4 MG/DL Sodium Level 135 MEQ/L Potassium Level 3.5 MEQ/L Chloride Level 98 MEQ/L Carbon Dioxide Level 27.4 MEQ/L Anion Gap 10 MEQ/L Estimat Glomerular Filtration Rate 171 ML/MIN Date/Time Source Procedure Growth Status 07/14/17 20:37 Blood Peripheral Aerobic Blood Culture - Preliminary NO GROWTH IN 3 DAYS Resulted 07/14/17 20:37 Blood Peripheral Anaerobic Blood Culture - Preliminary NO GROWTH IN 3 DAYS Resulted Physical Examination HEENT: PEALLA normocephalic; atraumatic, speech brief but normal and understandable NECK: Neck is supple CHEST: No obvious rhonchi or wheezing CARDIAC: Regular rate and rhythm ABDOMEN: Soft, nondistended, nontender;bowel sounds are present in all four quadrants. EXTREMITIES: No clubbing, cyanosis, or edema. SKIN: Normal; no rash; no jaundice. TRANSIT BUS OPERATOR: Mild anxiety, answers with simple one-word answers (Yessica Carmen) Assessment and Plan Plan History of cholelithiasis with common bile duct stent in place liver ultrasound showed current cholelithiasis with dilated common bile duct 1.1 cm. History of sickle cell anemia being monitored per oncology/hematology and attending., Patient came into the hospital, was discharged and came back within 24-hour period secondary to uncontrolled pain. Currently patient denies any abdominal pain. Nausea and vomiting probably secondary to #1 Plan ERCP in the morning, consent for ERCP Monitor labs with special attention to hemoglobin, bilirubin, LFTs, alkaline phosphatase Monitor for any bleeding Levaquin IV Zosyn IV Folate by mouth PPI IV IV fluids Supportive care 's patient was seen per myself and , note was written on his behalf (Yessica Carmen) Physician Comments Seen and examined with BAO, U/S shows biliary stent, pt. states was put in at [place] possibly a year ago. Pt. very vague and abrupt with answers. ERCP/stent removal planned for the morning. IV antibiotics. Dr. Mayberry to follow. Thankyou (Varun Woods MD) Yessica Carmen Jul 17, 2017 13:47 Varun Woods MD Jul 17, 2017 16:28
[2017-07-17] MEDS ORDERED: PILL SPLITTER OTHER PRN (14:00)
[2017-07-17] MEDS: FAMOTIDINE 20 MG TAB PO SCH ×2 (14:20→21:03)
[2017-07-17 14:27] LABS: AUTOMATED NEUTROPHIL # 14.8 TH/MM3 (1.8-7.7); BASOPHIL # 0.2 TH/MM3 (0-0.2); EOSINOPHIL # 0.2 TH/MM3 (0-0.4); HEMATOCRIT 25.2 % (35.0-46.0); HEMOGLOBIN 8.7 GM/DL (11.6-15.3); LYMPH % 13.6 % (9.0-44.0); LYMPHOCYTE # 2.7 TH/MM3 (1.0-4.8); MEAN CELL VOLUME 94.8 FL (80.0-100.0); MEAN CORPUSCULAR HEMOGLOBIN 32.6 PG (27.0-34.0); MEAN CORPUSCULAR HGB CONC 34.4 % (32.0-36.0); MONO % 10.4 % (0.0-8.0); MONOCYTE # 2.1 TH/MM3 (0-0.9); PLATELET COUNT 447 TH/MM3 (150-450); RED BLOOD COUNT 2.66 MIL/MM3 (4.00-5.30); RED CELL DISTRIBUTION WIDTH 22.4 % (11.6-17.2)
[2017-07-17 14:59] LABS: BANDS 2 % (0-6); BASOPHILS 2 % (0-2); CORRECTED NUCLEATED RBC 4 /100 WBC (0-0); LYMPHOCYTES 14 % (9-44); MONOCYTES 4 % (0-8); NUCLEATED RED BLOOD CELL 4 (0-0); POLYCHROMASIA 2.5 % (0.0-1.9); POLYS (SEG NEUTROPHILS) 78 % (16-70); TARGET CELLS 1+ (NORMAL)
[2017-07-17 15:00] LABS: ALBUMIN 2.9 GM/DL (3.4-5.0); ALT (GPT) 47 U/L (9-42); AST (GOT) 63 U/L (16-38); BICARBONATE 27.5 MEQ/L (21.0-32.0); BLOOD UREA NITROGEN 7 MG/DL (7-18); CALCIUM 8.5 MG/DL (8.5-10.1); CHLORIDE 100 MEQ/L (98-107); CREATININE 0.46 MG/DL (0.50-1.00); GLOMERULAR FILTRATION RATE 210 ML/MIN (>89); GLUCOSE,RANDOM 91 MG/DL (74-106); SODIUM (NA) 136 MEQ/L (136-145)
[2017-07-17 15:00] LABS: OVALOCYTES 1+ (NORMAL); SICKLE CELLS 1+ (NORMAL)
[2017-07-17 15:14] LABS: ALKALINE PHOSPHATASE 126 U/L (45-117); TOTAL PROTEIN 6.8 GM/DL (6.4-8.2)
[2017-07-17 15:18] LABS: TOTAL BILIRUBIN ADULT 12.9 MG/DL (0.2-1.0)
--- NOTE | 2017-07-17 15:36 | HHI.PR ---
Subjective Remarks Patient with left shoulder pain. She denies any abd pain , not eating much . Very poor historian. Doesn't recall name of GI at [facility]. No fever or chills. Appears chronically ill. Objective Vitals Vital Signs Date Time Temp Pulse Resp B/P (MAP) Pulse Ox O2 Delivery O2 Flow Rate FiO2 07/17/17 12:00 98.7 73 20 150/85 (106) 100 07/17/17 08:00 Room Air 07/17/17 08:00 98.3 72 23 155/92 (113) 97 07/17/17 04:00 98.8 69 18 144/96 (112) 95 07/17/17 00:00 98.2 66 16 141/81 (101) 96 07/16/17 20:00 99.1 78 18 134/85 (101) 94 07/16/17 19:59 99 21 07/16/17 19:45 Room Air 07/16/17 17:09 18 07/16/17 16:00 98.3 67 20 151/97 (115) 93 I/O 07/16/17 07/16/17 07/16/17 07/17/17 07/17/17 07/17/17 07:00 15:00 23:00 07:00 15:00 23:00 Intake Total 2000 ml 350 ml 1300 ml 1000 ml Balance 2000 ml 350 ml 1300 ml 1000 ml Intake Oral 200 ml 300 ml IV Total 2000 ml 150 ml 1000 ml 1000 ml # Voids 2 1 1 2 # Bowel Movements 0 1 Result Diagram: 07/17/17 1348 07/17/17 1345 Imaging Last Impressions Liver Ultrasound 07/16/17 0000 Signed Impressions: Service Date/Time: Sunday, July 16, 2017 16:43 - CONCLUSION: Mildly prominent common bile duct up to 1.[address] stent in place and choledocholithiasis. Azael Nolasco MD Upper Extremity Ultrasound 07/14/17 0000 Signed Impressions: Service Date/Time: July 16:33 - CONCLUSION: Normal examination. Triston Martins MD Upper Extremity CT 07/14/17 0000 Signed Impressions: Service Date/Time: July 18:37 - CONCLUSION: No acute disease. Omid Payne MD Chest X-Ray 07/14/17 0000 Signed Impressions: Service Date/Time: July 10:55 - CONCLUSION: In the right lung base there is a small infiltrate with a small associated pleural effusion. Yaakov Stevenson MD Objective Remarks GENERAL: This is a well-nourished, well-developed patient, in no apparent distress. CARDIOVASCULAR: Regular rate and rhythm without murmurs, gallops, or rubs. RESPIRATORY: Clear to auscultation. Breath sounds equal bilaterally. No wheezes , rales, or rhonchi. GASTROINTESTINAL: Abdomen soft, non-tender, nondistended. No hepato-splenomegaly , or palpable masses. No guarding. MUSCULOSKELETAL: Extremities without clubbing, cyanosis, or edema. No joint tenderness, effusion, or edema noted. No calf tenderness. Negative Homans sign bilaterally. NEUROLOGICAL: Awake and alert. Cranial nerves II through XII intact. Motor and sensory grossly within normal limits. Five out of 5 muscle strength in all muscle groups. Normal speech. A/P Problem List: (1) Sickle cell crisis ICD Code: D57.00 - Hb-SS disease with crisis, unspecified Status: Acute Assessment and Plan Sickle cell painful crisis Hemoglobin of 6.1 on admission received 1 unit of blood repeat hemoglobin 7.3 Dilated CBD 1.1 with previous stent placed, with bilirubinemia. Choledocholithiasis.Consult gI for further eval and recommendations. US reviewed. s/p of PRBC 07/11 continue hydroxyurea and folic acid- Monitor H/h 07/13/17 patient with drop in HGB of 6.6 . Transfused 2 U PRBC. repeat HGB 9.1 Monitor AND TRANSFUSE IF <7 continue with IV fluid and pain control IV dilaudid patient says PO meds doesn' t help much and she is still with pain - Give extra dose of dilaudid 3// 1 mg as patient with significant pain in her right arm . CXR reviewed right base PNA and small pleural effusion Started IV abx levaquin check blood cx ntd Add IS Also with severe pain in her right shoulder. patient has pain in her shoulders and arms . Doppler US bilat arms negative LDH and retic count high , bili high monitor hematology following, appreciate recommendations discussed with PA oncology Mrs Zoe Santana -DVT prophylaxis with SCD's Discussed Condition With patient, nurse, PA oncology Mrs Zoe Santana DC when improved. Payton Massey MD Jul 17, 2017 15:36
[2017-07-17 18:00] VITALS: BP 141/85; PULSE 65; RESP 18; TEMP 98.2; O2SAT 94
[2017-07-17] MEDS ORDERED: POTASSIUM CHLORIDE 10 MEQ CONTROLLED RELEASE TAB PO ONE (18:30)
[2017-07-17 20:00] VITALS: BP 142/97; PULSE 63; RESP 18; TEMP 97.8; O2SAT 96
[2017-07-18] VITALS: BP 154/95; PULSE 67; RESP 18; TEMP 98.1; O2SAT 95
[2017-07-18 04:00] VITALS: BP 133/92; PULSE 66; RESP 19; TEMP 97.5; O2SAT 100
[2017-07-18] MEDS: HYDROmorphone HCL PF 2 MG/ML VIAL IV PUSH PRN ×3 (04:45→22:06)
[2017-07-18] MEDS: ONDANSETRON HCL 4 MG/2 ML VIAL IV PUSH PRN (04:49)
[2017-07-18] MEDS: SODIUM CHLOR 0.9% 1000 ML INJ 1,000 ML IV SCH ×3 (06:14→20:20)
[2017-07-18 07:56] LABS: AUTOMATED NEUTROPHIL # 11.5 TH/MM3 (1.8-7.7); BASOPHIL # 0.1 TH/MM3 (0-0.2); BASOPHIL % 0.7 % (0.0-2.0); EOSINOPHIL # 0.3 TH/MM3 (0-0.4); EOSINOPHIL % 2.1 % (0.0-4.0); HEMATOCRIT 26.6 % (35.0-46.0); HEMOGLOBIN 9.2 GM/DL (11.6-15.3); LYMPH % 12.1 % (9.0-44.0); LYMPHOCYTE # 1.9 TH/MM3 (1.0-4.8); MEAN CELL VOLUME 96.8 FL (80.0-100.0); MEAN CORPUSCULAR HEMOGLOBIN 33.5 PG (27.0-34.0); MEAN CORPUSCULAR HGB CONC 34.6 % (32.0-36.0); MEAN PLATELET VOLUME 8.2 FL (7.0-11.0); MONO % 12.8 % (0.0-8.0); NEUT % 72.3 % (16.0-70.0); PLATELET COUNT 438 TH/MM3 (150-450); RED BLOOD COUNT 2.74 MIL/MM3 (4.00-5.30); WHITE BLOOD COUNT 15.9 TH/MM3 (4.0-11.0)
[2017-07-18 08:00] VITALS: BP 135/72; PULSE 66; RESP 18; TEMP 98.3; O2SAT 97
[2017-07-18 08:21] LABS: TOTAL BILIRUBIN ADULT 11.4 MG/DL (0.2-1.0)
--- NOTE | 2017-07-18 08:57 | HHI.PR ---
Subjective Remarks Went for retrieval of stent. Was seen there after. Patient is in bed she says pain is fairly controlled by medications. No fever or chills. Not coughing much. No sputum production. No abdominal pain at this time. Left shoulder pain improved some. Very poor historian Objective Vitals Vital Signs Date Time Temp Pulse Resp B/P (MAP) Pulse Ox O2 Delivery O2 Flow Rate FiO2 07/18/17 04:00 97.5 66 19 133/92 (106) 100 07/18/17 04:00 Room Air 07/18/17 00:00 98.1 67 18 154/95 (114) 95 07/18/17 00:00 Room Air 07/17/17 23:39 17 07/17/17 21:00 Room Air 07/17/17 20:00 97.8 63 18 142/97 (112) 96 07/17/17 18:00 98.2 65 18 141/85 (103) 94 07/17/17 12:00 98.7 73 20 150/85 (106) 100 I/O 07/17/17 07/17/17 07/17/17 07/18/17 07/18/17 07/18/17 07:00 15:00 23:00 07:00 15:00 23:00 Intake Total 1000 ml 1240 ml 1120 ml Balance 1000 ml 1240 ml 1120 ml Intake Oral 240 ml 120 ml IV Total 1000 ml 1000 ml 1000 ml # Voids 2 2 6 # Bowel Movements 1 0 Result Diagram: 07/18/17 0610 07/17/17 1345 Imaging Last Impressions Liver Ultrasound 07/16/17 0000 Signed Impressions: Service Date/Time: Sunday, July 16, 2017 16:43 - CONCLUSION: Mildly prominent common bile duct up to 1.1 cm with stent in place and choledocholithiasis. Azael Nolasco MD Upper Extremity Ultrasound 07/14/17 0000 Signed Impressions: Service Date/Time: July 16:33 - CONCLUSION: Normal examination. Triston Martins MD Upper Extremity CT 07/14/17 0000 Signed Impressions: Service Date/Time: July 18:37 - CONCLUSION: No acute disease. Omid Payne MD Chest X-Ray 07/14/17 0000 Signed Impressions: Service Date/Time: July 10:55 - CONCLUSION: In the right lung base there is a small infiltrate with a small associated pleural effusion. Yaakov Stevenson MD Objective Remarks GENERAL: This is a well-nourished, well-developed patient, in no apparent distress. CARDIOVASCULAR: Regular rate and rhythm without murmurs, gallops, or rubs. RESPIRATORY: Clear to auscultation. Breath sounds equal bilaterally. No wheezes , rales, or rhonchi. GASTROINTESTINAL: Abdomen soft, non-tender, nondistended. No hepato-splenomegaly , or palpable masses. No guarding. MUSCULOSKELETAL: Extremities without clubbing, cyanosis, or edema. No joint tenderness, effusion, or edema noted. No calf tenderness. Negative Homans sign bilaterally. NEUROLOGICAL: Awake and alert. Cranial nerves II through XII intact. Motor and sensory grossly within normal limits. Five out of 5 muscle strength in all muscle groups. Normal speech. A/P Problem List: (1) Sickle cell crisis ICD Code: D57.00 - Hb-SS disease with crisis, unspecified Status: Acute Assessment and Plan Sickle cell painful crisis Hemoglobin of 6.1 on admission received 1 unit of blood repeat hemoglobin 7.3 Dilated CBD 1.1 with previous stent placed, with bilirubinemia. Choledocholithiasis.Consult gI for further eval and recommendations. US reviewed. ERCP/stent removal planned 07/18/17. IV antibiotics. Dr. Mayberry FF s/p of PRBC 07/11 continue hydroxyurea and folic acid- Monitor H/h 07/13/17 patient with drop in HGB of 6.6 . Transfused 2 U PRBC. repeat HGB 9.1 Monitor AND TRANSFUSE IF <7 continue with IV fluid and pain control IV dilaudid patient says PO meds doesn' t help much and she is still with pain - Give extra dose of dilaudid 3// 1 mg as patient with significant pain in her right arm . CXR reviewed right base PNA and small pleural effusion Started IV abx levaquin check blood cx ntd Add IS Also with severe pain in her right shoulder. patient has pain in her shoulders and arms . Doppler US bilat arms negative LDH and retic count high , bili high monitor . Bili is trending down hematology following, appreciate recommendations discussed with PA oncology Mrs Zoe Santana -DVT prophylaxis with SCD's Discussed Condition With patient, nurse, PA oncology Mrs Zoe Santana S/p stent retrival; 35. Follow up bili if < 8 can DC patient if also clinically improved DC when improved. Payton Massey MD Jul 18, 2017 08:57
[2017-07-18] MEDS: FAMOTIDINE 20 MG TAB PO SCH ×2 (09:00→20:20)
[2017-07-18] MEDS: FOLIC ACID 1 MG TAB PO SCH (09:00)
[2017-07-18] MEDS: HYDROXYUREA 500 MG CAP PO SCH (09:00)
[2017-07-18 09:04] LABS: BASOPHILS 2 % (0-2); CORRECTED NUCLEATED RBC 3 /100 WBC (0-0); LYMPHOCYTES 13 % (9-44); MONOCYTES 10 % (0-8); NEUTROPHIL # MANUAL DIFF 11.8 TH/MM3 (1.8-7.7); NUCLEATED RED BLOOD CELL 3 (0-0); POLYS (SEG NEUTROPHILS) 74 % (16-70)
[2017-07-18 09:05] LABS: SICKLE CELLS 1+ (NORMAL); TARGET CELLS 1+ (NORMAL)
[2017-07-18 09:06] LABS: HOWELL-JOLLY BODIES PRESENT (NONE SEEN); KERATOCYTES OCC (NORMAL)
--- NOTE | 2017-07-18 10:49 | GIPROC ---
[facility] [address] [facility]. [facility], [address] ERCP PROCEDURE REPORT EXAM DATE: 07/18/2017 PATIENT NAME: Aron Wood MR #: [id number] BIRTHDATE: 1995 ATTENDING: Skip Mayberry MD ORDER #: [id number] DOCTOR ASSISTANT: Shawn Lama Jones, Julie, and Rochelle Dawson STATUS: inpatient INDICATIONS: The patient is a 21 yr old female here for an ERCP due to established bile duct stone(s) PROCEDURE PERFORMED: ERCP with removal of calculus/calculi ERCP with stent removal MEDICATIONS: None and Per Anesthesia. CONSENT: The patient understands the risks and benefits of the procedure and understands that these risks include, but are not limited to: sedation, allergic reaction, infection, perforation and/or bleeding. Alternative means of evaluation and treatment include, among others: physical exam, x-rays, and/or surgical intervention. The patient elects to proceed with this endoscopic procedure. medical equipment was checked for proper function. Hand hygiene and appropriate measures for infection prevention was taken. After the risks, benefits and alternatives of the procedure were thoroughly explained, Informed was verified, confirmed and timeout was successfully executed by the treatment team. With the patient in left semi-prone position, medications were administered intravenously.The Pentax [id number] was passed from the mouth into the esophagus and further advanced from the esophagus into the stomach. From stomach scope was directed to the second portion of the duodenum. Major papilla was aligned with the duodenoscope. The scope position was confirmed fluoroscopically. Rest of the findings/therapeutics are given below. The scope was then completely withdrawn from the patient and the procedure completed. The pulse, BP, and O2 saturation were monitored and documented by the physician and the nursing staff throughout the entire procedure. The patient was cared for as planned according to standard protocol. The patient was then discharged to recovery in stable condition and with appropriate post procedure care. The ampulla was located the second portion of the duodenum. A previously placed stent was seen extending from the orifice. There was a dilation of the CBD. A single stone was seen in the mid common bile duct. Multiple filling defects were seen in the common bile duct. The old stent was removed using a snare. Using a stone extraction balloon the bile duct was swept several times. Six stones were removed from the bile duct successfully. ADVERSE EVENT: There were no complications. IMPRESSIONS: A previously placed ampulla stent was seen extending from the orifice , removed by snare. CBD stones and evidence of previous sphincterotomy, stone extractions done by [facility], largest stone more than 1 cm. RECOMMENDATIONS: 1. No treatment 2. Liver enzymes REPEAT EXAM: As needed Skip Mayberry MD eSigned: Skip Mayberry MD 07/18/2017 10:49 AM cc: PATIENT NAME: Aron Wood MR#: [id number]
[2017-07-18] MEDS ORDERED: DO NOT ADM ANY ANTICOAGULANT DRUGS PRN (10:55)
[2017-07-18] MEDS ORDERED: *morphine SULFATE 10 MG/ML PERIprocedure ONLY ONE (11:17)
[2017-07-18] MEDS ORDERED: *LABETALOL HCL 100 MG/20 ML VIAL PERIprocedural Use ONLY ONE (11:22)
--- NOTE | 2017-07-18 11:29 | RADRPT ---
EXAM DATE/TIME: 07/18/2017 10:34 [facility] COMPARISON: No previous studies available for comparison. INDICATIONS : Obstruction, stent removal and stone removal. FLUORO TIME: 1.24 minutes IMAGE COUNT: 3 CONTRAST: Instilled by Ordering Physician MEDICAL HISTORY : Sickle Cell disease. SURGICAL HISTORY : None. ENCOUNTER: Initial ACUITY: 1 day PAIN SCORE: 0/10 LOCATION: Right upper quadrant FINDINGS: An ERCP was performed by the ordering physician. The images demonstrate stent has been removed. 3 images were submitted. On image #3 there is no res idual filling defects in the common duct. The hepatic ducts are not visualized. CONCLUSION: ERCP as above. Neto Love MD FACR on July 18, 2017 at 11:26 Board Certified Radiologist. This report was verified electronically.
[2017-07-18 12:00] VITALS: BP 153/74; PULSE 76; RESP 18; TEMP 98.3; O2SAT 96
[2017-07-18] MEDS ORDERED: PROPOFOL 200 MG/20 ML AMP IV ONE (12:00)
[2017-07-18] MEDS ORDERED: LIDOCAINE HCL 1% PF 5 ML SYRINGE OTHER ONE (12:00)
--- NOTE | 2017-07-18 12:55 | PD.ONC.PN ---
Subjective Subjective Remarks Afebrile overnight. Patient resting in bed. just back from procedure. she has no complaints. when I ask her about pain she states she sometimes gets chest pain. "do you have any chest pain now?" "maybe a little bit." "does anything make the chest pain worse, such as movement?" "no" "does it get worse with taking a deep breath?" "no" "does anything make the chest pain better? "no" "so it just seems to randomly come and go?" "yes" "how long have you had the chest pain for?" "awhile" "where is the chest pain?" {shrugs shoulders} Objective Data Date Time Temp Pulse Resp B/P (MAP) Pulse Ox O2 Delivery O2 Flow Rate FiO2 07/18/17 11:45 98.7 78 18 141/90 (107) 94 Room Air 07/18/17 11:30 76 18 147/103 (118) 96 Room Air 07/18/17 11:21 81 18 158/108 (125) 98 Room Air 07/18/17 11:15 67 18 157/104 (121) 98 Room Air 07/18/17 11:00 91 18 164/109 (127) 98 Room Air 07/18/17 10:55 98.9 77 18 164/95 (118) 97 Room Air 07/18/17 08:00 98.3 66 18 135/72 (93) 97 07/18/17 04:00 97.5 66 19 133/92 (106) 100 07/18/17 04:00 Room Air 07/18/17 00:00 98.1 67 18 154/95 (114) 95 07/18/17 00:00 Room Air 07/17/17 23:39 17 07/17/17 21:00 Room Air 07/17/17 20:00 97.8 63 18 142/97 (112) 96 07/17/17 18:00 98.2 65 18 141/85 (103) 94 07/18/17 07/18/17 07/18/17 06:59 14:59 22:59 Intake Total 1120 ml Balance 1120 ml Result Diagram: 07/18/17 0610 07/17/17 1345 Laboratory Results Laboratory Tests Test 07/17/17 13:45 07/17/17 13:48 07/18/17 06:10 Blood Urea Nitrogen 7 MG/DL Creatinine 0.46 MG/DL Random Glucose 91 MG/DL Total Protein 6.8 GM/DL Albumin 2.9 GM/DL Calcium Level 8.5 MG/DL Alkaline Phosphatase 126 U/L Aspartate Amino Transf (AST/SGOT) 63 U/L Alanine Aminotransferase (ALT/SGPT) 47 U/L Lactate Dehydrogenase 345 U/L 369 U/L Total Bilirubin 12.9 MG/DL 11.4 MG/DL Sodium Level 136 MEQ/L Potassium Level 3.1 MEQ/L Chloride Level 100 MEQ/L Carbon Dioxide Level 27.5 MEQ/L Anion Gap 9 MEQ/L Estimat Glomerular Filtration Rate 210 ML/MIN White Blood Count 20.0 TH/MM3 15.9 TH/MM3 Red Blood Count 2.66 MIL/MM3 2.74 MIL/MM3 Hemoglobin 8.7 GM/DL 9.2 GM/DL Hematocrit 25.2 % 26.6 % Mean Corpuscular Volume 94.8 FL 96.8 FL Mean Corpuscular Hemoglobin 32.6 PG 33.5 PG Mean Corpuscular Hemoglobin Concent 34.4 % 34.6 % Red Cell Distribution Width 22.4 % 23.0 % Platelet Count 447 TH/MM3 438 TH/MM3 Mean Platelet Volume 8.0 FL 8.2 FL Neutrophils (%) (Auto) 74.0 % 72.3 % Lymphocytes (%) (Auto) 13.6 % 12.1 % Monocytes (%) (Auto) 10.4 % 12.8 % Eosinophils (%) (Auto) 1.0 % 2.1 % Basophils (%) (Auto) 1.0 % 0.7 % Neutrophils # (Auto) 14.8 TH/MM3 11.5 TH/MM3 Lymphocytes # (Auto) 2.7 TH/MM3 1.9 TH/MM3 Monocytes # (Auto) 2.1 TH/MM3 2.0 TH/MM3 Eosinophils # (Auto) 0.2 TH/MM3 0.3 TH/MM3 Basophils # (Auto) 0.2 TH/MM3 0.1 TH/MM3 CBC Comment AUTO DIFF AUTO DIFF Differential Total Cells Counted 100 100 Neutrophils % (Manual) 78 % 74 % Band Neutrophils % 2 % Lymphocytes % 14 % 13 % Monocytes % 4 % 10 % Basophils % 2 % 2 % Neutrophils # (Manual) 16.0 TH/MM3 11.8 TH/MM3 Nucleated Red Blood Cells 4 /100 WBC 3 /100 WBC Differential Comment FINAL DIFF MANUAL FINAL DIFF MANUAL Platelet Estimate HIGH NORMAL Platelet Morphology Comment NORMAL NORMAL Polychromasia 2.5 % 4.0 % Sickle Cells 1+ 1+ Target Cells 1+ 1+ Ovalocytes 1+ Eosinophils % 1 % [place] Bodies PRESENT Keratocytes OCC Red Cell Morphology Comment Imaging Studies Last 24 hours Impressions GI Procedure 07/18/17 0000 Signed Impressions: Service Date/Time: Tuesday, July 18, 2017 10:34 - CONCLUSION: ERCP as above. Neto Love MD FACR Administered Medications Medications (Trade) Dose Ordered Sig/Arjun Route PRN Reason Start Time Stop Time Status Last Admin Dose Admin Sodium Chloride 1,000 ml @ 125 mls/hr Q8H IV 07/11/17 09:15 07/18/17 11:30 Ondansetron HCl (Zofran Inj) 4 mg Q8HR PRN IV PUSH NAUSEA 07/11/17 14:00 07/18/17 04:49 Folic Acid (Folate) 1 mg DAILY PO 07/11/17 09:15 07/16/17 09:00 Hydroxyurea (Hydrea) 500 mg DAILY PO 07/11/17 09:15 07/16/17 09:00 Acetaminophen (Tylenol) 650 mg Q4H PRN PO SEE LABEL COMMENTS 07/13/17 14:15 07/13/17 15:42 Diphenhydramine HCl (Benadryl) 25 mg Q4H PRN PO SEE LABEL COMMENTS 07/13/17 14:15 07/13/17 15:41 Hydromorphone HCl (Dilaudid Pf Inj) 1 mg Q6HR PRN IV PUSH BREAKTHROUGH PAIN 07/14/17 15:00 07/18/17 04:45 Levofloxacin/ Dextrose 150 ml @ 100 mls/hr Q24H IV 07/14/17 13:00 07/17/17 12:15 Famotidine (Pepcid) 10 mg BID PO 07/17/17 13:45 07/17/17 21:03 Objective Remarks GENERAL: Relaxed, comfortable appearing female, lying in bed resting in nad. SKIN: Warm and dry. HEAD: Normocephalic. EYES: No injection or drainage. NECK: Supple, trachea midline. CARDIOVASCULAR: Regular rate and rhythm RESPIRATORY: Breath sounds equal bilaterally. No accessory muscle use. GASTROINTESTINAL: Abdomen soft, non-tender, nondistended. EXTREMITIES: No cyanosis NEUROLOGICAL: awake and alert, normal speech. moving all extremities. Assessment/Plan Problem List: (1) Sickle cell crisis ICD Codes: D57.00 - Hb-SS disease with crisis, unspecified Status: Acute Plan: 07/18: continue IVF. monitor hgb, bilirubin. would discharge when bilirubin improved. will check another chest x-ray for chest pain. --on folic acid, hydromorphone, Hydrea (2) Hyperbilirubinemia ICD Codes: E80.6 - Other disorders of bilirubin metabolism Plan: --elevated indirect bilirubin secondary to hemolyzing from her sickle cell crisis. --GI following for elevated direct bilirubin. s/p ERCP this AM. Assessment 21y/o female admitted with sickle cell painful crisis. Attending Statement The exam, history, and the medical decision-making described in the above note were completed with the assistance of the mid-level provider. I reviewed and agree with the findings presented. I attest that I had a [id number] encounter with the patient on the same day, and personally performed and documented my assessment and findings in the medical record. C/O mid sternal pain. No relation to breathing. No SOB Upper arm pain has resolved. NO TX today For ERCP today. Tiffany Santana Jul 18, 2017 12:55 Dirk Green MD Jul 18, 2017 15:02
--- NOTE | 2017-07-18 13:24 | EKG ---
Date Performed: 07/18/2017 Time Performed: 05:43:08 PTAGE: 21 years EKG: Sinus rhythm Prolonged QT interval Septal T wave changes are borderline abnormal Borderline ECG PREVIOUS TRACING : 02/10/2017 13.58 Since the prior tracing, there has been no significant parker DOCTOR: Ángel Nunez Interpretating Date/Time 07/18/2017 13:23:40
--- NOTE | 2017-07-18 14:06 | RADRPT ---
EXAM DATE/TIME: 07/18/2017 13:30 [facility] COMPARISON: CHEST PA & LAT, July 14, 2017, 10:55. INDICATIONS : Chest pain. MEDICAL HISTORY : Sickle Cell disease. SURGICAL HISTORY : Colostomy. liver biopsy ENCOUNTER: Initial ACUITY: 1 week PAIN SCORE: 3/10 LOCATION: Bilateral chest FINDINGS: The cardiac silhouette is enlarged in transverse diameter. Previously seen bibasilar pneumonia has re solved. No pleural effusions are identified. CONCLUSION: Cardiomegaly. No acute pulmonary disease. Pancho Aguirre MD on July 18, 2017 at 13:57 Board Certified Radiologist. This report was verified electronically.
[2017-07-18] MEDS: LEVOFLOXACIN 750 MG PREMIX INJ 150 ML IV SCH (14:18)
[2017-07-18 16:00] VITALS: BP 105/56; PULSE 57; RESP 18; TEMP 98.2; O2SAT 100
[2017-07-18 20:15] VITALS: BP 120/78; PULSE 69; RESP 18; TEMP 98.4; O2SAT 98
[2017-07-19] VITALS: BP 143/82; PULSE 84; RESP 18; TEMP 98.2; O2SAT 97
[2017-07-19] MEDS: HYDROmorphone HCL PF 2 MG/ML VIAL IV PUSH PRN ×2 (04:20→10:30)
[2017-07-19 04:23] VITALS: BP 155/97; PULSE 71; RESP 18; TEMP 98.9; O2SAT 96
[2017-07-19 08:00] VITALS: BP 146/98; PULSE 77; RESP 18; TEMP 98.1; O2SAT 98
[2017-07-19] MEDS: FAMOTIDINE 20 MG TAB PO SCH (09:20)
[2017-07-19] MEDS: FOLIC ACID 1 MG TAB PO SCH (09:20)
[2017-07-19] MEDS: HYDROXYUREA 500 MG CAP PO SCH (09:26)
[2017-07-19] MEDS: SODIUM CHLOR 0.9% 1000 ML INJ 1,000 ML IV SCH (09:28)
[2017-07-19 10:42] LABS: AUTOMATED NEUTROPHIL # 10.6 TH/MM3 (1.8-7.7); BASOPHIL # 0.1 TH/MM3 (0-0.2); BASOPHIL % 0.6 % (0.0-2.0); EOSINOPHIL # 0.3 TH/MM3 (0-0.4); EOSINOPHIL % 2.3 % (0.0-4.0); HEMATOCRIT 28.7 % (35.0-46.0); HEMOGLOBIN 9.6 GM/DL (11.6-15.3); LYMPH % 11.5 % (9.0-44.0); LYMPHOCYTE # 1.6 TH/MM3 (1.0-4.8); MEAN CELL VOLUME 98.7 FL (80.0-100.0); MEAN CORPUSCULAR HEMOGLOBIN 32.9 PG (27.0-34.0); MEAN CORPUSCULAR HGB CONC 33.3 % (32.0-36.0); MEAN PLATELET VOLUME 8.7 FL (7.0-11.0); MONO % 9.7 % (0.0-8.0); MONOCYTE # 1.4 TH/MM3 (0-0.9); NEUT % 75.9 % (16.0-70.0); PLATELET COUNT 434 TH/MM3 (150-450); RED BLOOD COUNT 2.91 MIL/MM3 (4.00-5.30); RED CELL DISTRIBUTION WIDTH 27.4 % (11.6-17.2)
[2017-07-19 11:07] LABS: TOTAL BILIRUBIN ADULT 9.6 MG/DL (0.2-1.0)
[2017-07-19 11:26] LABS: TARGET CELLS 1+ (NORMAL)
[2017-07-19] MEDS ORDERED: HYDROmorphone HCL PF 2 MG/ML VIAL IV PUSH PRN (11:30)
[2017-07-19 12:00] VITALS: BP 140/96; PULSE 64; RESP 18; TEMP 98.6; O2SAT 98
--- NOTE | 2017-07-19 12:31 | PD.ONC.PN ---
Subjective Subjective Remarks Afebrile overnight. patient feeling better today. denies pain. denies any chest pain. states she feels ready to go home. Objective Data Date Time Temp Pulse Resp B/P (MAP) Pulse Ox O2 Delivery O2 Flow Rate FiO2 07/19/17 12:00 98.6 64 18 140/96 (111) 98 07/19/17 08:00 98.1 77 18 146/98 (114) 98 07/19/17 07:46 Room Air 2.00 21 07/19/17 04:23 98.9 71 18 155/97 (116) 96 07/19/17 00:00 Room Air 07/19/17 00:00 98.2 84 18 143/82 (102) 97 07/18/17 20:15 98.4 69 18 120/78 (92) 98 07/18/17 20:15 Room Air 07/18/17 16:00 98.2 57 18 105/56 (72) 100 Result Diagram: 07/19/17 0908 07/17/17 1345 Laboratory Results Laboratory Tests Test 07/19/17 09:08 White Blood Count 14.0 TH/MM3 Red Blood Count 2.91 MIL/MM3 Hemoglobin 9.6 GM/DL Hematocrit 28.7 % Mean Corpuscular Volume 98.7 FL Mean Corpuscular Hemoglobin 32.9 PG Mean Corpuscular Hemoglobin Concent 33.3 % Red Cell Distribution Width 27.4 % Platelet Count 434 TH/MM3 Mean Platelet Volume 8.7 FL Neutrophils (%) (Auto) 75.9 % Lymphocytes (%) (Auto) 11.5 % Monocytes (%) (Auto) 9.7 % Eosinophils (%) (Auto) 2.3 % Basophils (%) (Auto) 0.6 % Neutrophils # (Auto) 10.6 TH/MM3 Lymphocytes # (Auto) 1.6 TH/MM3 Monocytes # (Auto) 1.4 TH/MM3 Eosinophils # (Auto) 0.3 TH/MM3 Basophils # (Auto) 0.1 TH/MM3 CBC Comment AUTO DIFF Neutrophils % (Manual) % Neutrophils # (Manual) TH/MM3 Differential Comment AUTO DIFF CONFIRMED Platelet Estimate NORMAL Platelet Morphology Comment NORMAL Polychromasia 2.0 % Target Cells 1+ Total Bilirubin 9.6 MG/DL Lactate Dehydrogenase 309 U/L Administered Medications Medications (Trade) Dose Ordered Sig/Arjun Route PRN Reason Start Time Stop Time Status Last Admin Dose Admin Sodium Chloride 1,000 ml @ 125 mls/hr Q8H IV 07/11/17 09:15 07/18/17 20:20 Ondansetron HCl (Zofran Inj) 4 mg Q8HR PRN IV PUSH NAUSEA 07/11/17 14:00 07/18/17 04:49 Folic Acid (Folate) 1 mg DAILY PO 07/11/17 09:15 07/19/17 09:20 Hydroxyurea (Hydrea) 500 mg DAILY PO 07/11/17 09:15 07/19/17 09:26 Acetaminophen (Tylenol) 650 mg Q4H PRN PO SEE LABEL COMMENTS 07/13/17 14:15 07/13/17 15:42 Diphenhydramine HCl (Benadryl) 25 mg Q4H PRN PO SEE LABEL COMMENTS 07/13/17 14:15 07/13/17 15:41 Levofloxacin/ Dextrose 150 ml @ 100 mls/hr Q24H IV 07/14/17 13:00 07/18/17 14:18 Famotidine (Pepcid) 10 mg BID PO 07/17/17 13:45 07/19/17 09:20 Objective Remarks GENERAL: Relaxed female, lying supine in bed in nad. she appears comfortable and is playing on her phone when I enter the room. SKIN: Warm and dry. HEAD: Normocephalic. EYES: No injection or drainage. NECK: Supple, trachea midline. CARDIOVASCULAR: Regular rate and rhythm RESPIRATORY: Breath sounds equal bilaterally. No accessory muscle use. GASTROINTESTINAL: Abdomen soft, non-tender, nondistended. EXTREMITIES: No cyanosis NEUROLOGICAL: awake, alert. no obvious focal deficit. Assessment/Plan Problem List: (1) Sickle cell crisis ICD Codes: D57.00 - Hb-SS disease with crisis, unspecified Status: Acute Plan: 07/19: bilirubin improved. hgb stable. patient feeling better, wants to go home. ok to d/c from hematology perspective. follow up with hematology outpatient. --on folic acid, hydromorphone, Hydrea (2) Hyperbilirubinemia ICD Codes: E80.6 - Other disorders of bilirubin metabolism Plan: --elevated indirect bilirubin secondary to hemolyzing from her sickle cell crisis. --GI following for elevated direct bilirubin. s/p ERCP Assessment 21y/o female admitted with sickle cell painful crisis. Attending Statement The exam, history, and the medical decision-making described in the above note were completed with the assistance of the mid-level provider. I reviewed and agree with the findings presented. I attest that I had a [id number]-yfag encounter with the patient on the same day, and personally performed and documented my assessment and findings in the medical record. Feels better wants to go home. H/H stable OK to d/c fu as outpt. Tiffany Santana Jul 19, 2017 12:31 Dirk Green MD Jul 19, 2017 14:17
[2017-07-19] MEDS: LEVOFLOXACIN 750 MG PREMIX INJ 150 ML IV SCH (13:00)
--- NOTE | 2017-07-19 13:10 | HHI.GIFU ---
Subjective Remarks Pt resting in bed in NAD. No vomiting, no abd pain. (Yanely Feliciano) Objective Vitals I&O Vital Signs Date Time Temp Pulse Resp B/P (MAP) Pulse Ox O2 Delivery O2 Flow Rate FiO2 07/19/17 12:00 98.6 64 18 140/96 (111) 98 07/19/17 08:00 98.1 77 18 146/98 (114) 98 07/19/17 07:46 Room Air 2.00 21 07/19/17 04:23 98.9 71 18 155/97 (116) 96 07/19/17 00:00 Room Air 07/19/17 00:00 98.2 84 18 143/82 (102) 97 07/18/17 20:15 98.4 69 18 120/78 (92) 98 07/18/17 20:15 Room Air 07/18/17 16:00 98.2 57 18 105/56 (72) 100 I/O 07/18/17 07/18/17 07/18/17 07/19/17 07/19/17 07/19/17 07:00 15:00 23:00 07:00 15:00 23:00 Intake Total 1120 ml 700 ml 480 ml Balance 1120 ml 700 ml 480 ml Intake Oral 120 ml 480 ml IV Total 1000 ml Other 700 ml # Voids 6 4 Laboratory Laboratory Tests Test 07/19/17 09:08 White Blood Count 14.0 Red Blood Count 2.91 Hemoglobin 9.6 Hematocrit 28.7 Mean Corpuscular Volume 98.7 Mean Corpuscular Hemoglobin 32.9 Mean Corpuscular Hemoglobin Concent 33.3 Red Cell Distribution Width 27.4 Platelet Count 434 Mean Platelet Volume 8.7 Neutrophils (%) (Auto) 75.9 Lymphocytes (%) (Auto) 11.5 Monocytes (%) (Auto) 9.7 Eosinophils (%) (Auto) 2.3 Basophils (%) (Auto) 0.6 Neutrophils # (Auto) 10.6 Lymphocytes # (Auto) 1.6 Monocytes # (Auto) 1.4 Eosinophils # (Auto) 0.3 Basophils # (Auto) 0.1 CBC Comment AUTO DIFF Neutrophils % (Manual) Neutrophils # (Manual) Differential Comment AUTO DIFF CONFIRMED Platelet Estimate NORMAL Platelet Morphology Comment NORMAL Polychromasia 2.0 Target Cells 1+ Total Bilirubin 9.6 Lactate Dehydrogenase 309 Date/Time Source Procedure Growth Status 07/14/17 20:37 Blood Peripheral Aerobic Blood Culture - Final NO GROWTH IN 5 DAYS Complete 07/14/17 20:37 Blood Peripheral Anaerobic Blood Culture - Final NO GROWTH IN 5 DAYS Complete Imaging Last Impressions GI Procedure 07/18/17 0000 Signed Impressions: Service Date/Time: Tuesday, July 18, 2017 10:34 - CONCLUSION: ERCP as above. Neto Love MD FACR Chest X-Ray 07/18/17 0000 Signed Impressions: Service Date/Time: Tuesday, July 18, 2017 13:30 - CONCLUSION: Cardiomegaly. No acute pulmonary disease. Pancho Aguirre MD Liver Ultrasound 07/16/17 0000 Signed Impressions: Service Date/Time: Sunday, July 16, 2017 16:43 - CONCLUSION: Mildly prominent common bile duct up to 1.[address] in place and choledocholithiasis. Azael Nolasco MD Upper Extremity Ultrasound 07/14/17 0000 Signed Impressions: Service Date/Time: July 16:33 - CONCLUSION: Normal examination. Triston Martins MD Upper Extremity CT 07/14/17 0000 Signed Impressions: Service Date/Time: July 18:37 - CONCLUSION: No acute disease. Omid Payne MD Physical Exam HEENT: PERRL; normocephalic; atraumatic; no jaundice. CHEST: CTA CARDIAC: RRR ABDOMEN: Soft, nondistended, nontender; no hepatosplenomegaly; bowel sounds are present in all four quadrants. EXTREMITIES: No clubbing, cyanosis, or edema. SKIN: Normal; no rash; no jaundice. JAVA ANDROID DEVELOPER: sleepy (Yanely Feliciano SUPERVISOR TRAVEL TRAILER) Assessment and Plan Plan History of cholelithiasis with common bile duct stent in place liver ultrasound showed current cholelithiasis with dilated common bile duct 1.1 cm. History of sickle cell anemia being monitored per oncology/hematology and attending., Patient came into the hospital, was discharged and came back within 24-hour period secondary to uncontrolled pain. Currently patient denies any abdominal pain. Nausea and vomiting probably secondary to #1 07/19/17 s/p ERCP with removal calculus and stent. tolerating diet, tbil and ALP trending down (other LFTs not done). no vomiting, nontender. Plan HECTOR Supportive care f/u with GI after d/c patient was seen per myself and , note was written on his behalf (Yanely Feliciano) Physician Comments Doing well post ERCP and LFT's trending down. Recheck LFT in AM (Skip Mayberry MD) Yanely Feliciano Jul 19, 2017 13:10 Skip Mayberry MD Jul 19, 2017 14:04
== END 2017-07-19 15:17 | disposition home or self-care (01) | DRG 811 ==
LOC: NEPC 06:24 → NEDA 09:50 → N04B 11:41
PROVIDERS: ADMIT Hospitalist; ATTEND Hospitalist
PROC: 30233N1 Transfusion of Nonautologous Red Blood Cells into Peripheral Vein, Percutaneous Approach (ICD-10-PCS; principal; 2017-07-11)
PROC: 0FPB8DZ Removal of Intraluminal Device from Hepatobiliary Duct, Via Natural or Artificial Opening Endoscopic (ICD-10-PCS; 2017-07-18)
PROC: 0FC98ZZ Extirpation of Matter from Common Bile Duct, Via Natural or Artificial Opening Endoscopic (ICD-10-PCS; 2017-07-18)
DX: D57.00 Hb-SS disease with crisis, unspecified (principal); J18.9 Pneumonia, unspecified organism; K80.51 Calculus of bile duct without cholangitis or cholecystitis with obstruction; Z90.49 Acquired absence of other specified parts of digestive tract; M25.511 Pain in right shoulder
CPT/HCPCS: 36430; 71045; 71046; 73200; 74330; 76705; 76937; 80048; 80053; 80076; 81001; 82247; 82248; 82550; 82805; 83605; 83615; 84484; 84702; 85007; 85025; 85027; 85044; 86140; 86850; 86900; 86901; 86920; 87040; 93005; 93970; 94150; 96361; 96365; 96374; 96375; C1769; J1170; J1200; J1885; J1940; J1956; J2270; J2405; J2543; J7030; J7050; J7070; P9016

== ENCOUNTER 2018-02-23 12:04 | Inpatient (IN) ==
--- NOTE | 2018-02-23 13:12 | ED ---
HPI General Chief complaint: Weakness Stated complaint: Multiple Complaints Time Seen by Provider: 02/23/18 12:40 Source: patient Mode of arrival: ambulatory Limitations: no limitations History of Present Illness HPI Narrative: The patient is a 22-year-old female who presents to the emergency department for generalized weakness. The patient is currently a student in college, up from [place], [place], and does not have a local primary physician. The patient does have a history of sickle cell disease , she is unsure if she has sickle cell SS or SC. The patient thinks her baseline hemoglobin is low somewhere between 7-8. The patient is currently on hydroxyurea and folic acid. The patient notes a 2-week history of increasing generalized weakness and fatigue. She denies any outright shortness of breath, chest pain, or exertional symptoms. She denies any diffuse myalgias or arthralgias. She denies any nausea, vomiting, diarrhea, abdominal pain, dysuria , frequency, or urgency. Last menstrual cycle was in December, she has had one previous late menstrual cycle. She is sexually active and not currently on control. Symptoms are moderate. There are no current alleviating or exacerbating factors. MD Complaint: Reports generalized weakness Onset (ago): week(s) Duration: progressively worsening Location: Reports generalized Migration: Reports none Severity: moderate Severity scale (1-10): 5 Relieving factors: none Exacerbating factors: none Context: Reports history of similar Associated symptoms: Reports denies other symptoms Related Data Home Medications Medication Instructions Recorded Confirmed folic acid 1 mg PO DAILY 02/23/18 02/23/18 hydroxyurea 500 mg PO DAILY 02/23/18 02/23/18 Allergies Allergy/AdvReac Type Severity Reaction Status Date / Time No Known Allergies AdvReac Unknown Uncoded 07/11/17 06:29 Review of Systems ROS: all other systems reviewed are negative [facility] Medical History Medical History Sickle cell anemia (Acute) Social History Social History Substance History: No History of Abuse Smoking Status: Never smoker How Often Do You Have a Drink Containing Alcohol: Never Recent Travel in [place] within the Last 8 Weeks: No Recent Out of Country Travel within the Last 8 Weeks: No Immunization History Tetanus Immunization: >5 Years Exam Narrative Exam Narrative: GENERAL: Awake, alert, pleasant 22-year-old female who appears her stated age and is in no acute respiratory distress. SKIN: Focused skin assessment warm/dry. Mild pallor to the palms bilaterally. HEAD: Atraumatic. Normocephalic. EYES: Pupils equal and round. Bilateral icterus. ENT: No nasal bleeding or discharge. Mucous membranes pink and moist. NECK: Trachea midline. No JVD. CARDIOVASCULAR: Regular rate and rhythm. No murmur appreciated. Heart rate in the 90s. RESPIRATORY: No accessory muscle use. Clear to auscultation. Breath sounds equal bilaterally. GASTROINTESTINAL: Abdomen soft, non-tender, nondistended. MUSCULOSKELETAL: No obvious deformities. No clubbing. No cyanosis. No edema. NEUROLOGICAL: Awake and alert. No obvious cranial nerve deficits. Motor grossly within normal limits. Normal speech. PSYCHIATRIC: Appropriate mood and affect; insight and judgment normal. Course Initial Documented Vital Signs Temperature 99 F 02/23/18 12:17 Pulse Rate 91 H 02/23/18 12:17 Respiratory Rate 18 02/23/18 12:17 Blood Pressure 114/67 02/23/18 12:17 Pulse Oximetry 95 02/23/18 12:17 Last Documented Vital Signs Temperature 99 F 02/23/18 12:17 Pulse Rate 91 H 02/23/18 12:17 Respiratory Rate 18 02/23/18 12:17 Blood Pressure 114/67 02/23/18 12:17 Pulse Oximetry 95 02/23/18 12:17 Medical Decision Making [facility] Narrative Medical decision making narrative: IV was established, labs are drawn and sent, and the patient was placed on cardiac telemetry monitoring and continuous pulse oximetry monitoring. CBC was sent to lab. Were to count was sent to lab. UA was sent to lab. Bedside UA test was negative. The patient's hemoglobin was 6.8, I did review the EMR, she has had hemoglobins that range from the 5 to the ninth. I had a discussion with the patient regarding her elevated reticulocyte count, elevated bilirubin, and anemia. We had a discussion regarding iron deposition, hemosiderosis that can occur from transfusions and hemolysis. However, the patient states she is symptomatic, after discussion she would prefer to have a blood transfusion to improve her symptoms. Therefore, the patient will be 23-hour observation, I have ordered a type and screen and 2 units of PRBCs. The on-call medical service was paged for admission. Medical Screen Exam Complete: Yes Emergency Medical Condition: Yes Differential Diagnosis Differential Diagnosis: Differential diagnosis includes symptomatic anemia, UTI , hyponatremia, acute kidney injury, viral syndrome, fatigue, hypothyroidism. Lab Data Lab results reviewed: Yes I reviewed the patient's lab results. Result diagrams: 02/23/18 13:30 02/23/18 13:30 POC Results POC Urine Results Negative Lab Results 02/23/18 02/23/18 02/23/18 Range/Units 13:30 13:30 13:30 WBC 12.5 H (4.0-11.0) th/mm3 RBC 1.79 L (4.00-5.30) mil/mm3 Hgb 6.8 L* (11.6-15.3) gm/dL Hct 19.1 L* (35.0-46.0) % MCV 106.4 H (80.0-100.0) fL MCH 37.6 H (27.0-34.0) pg MCHC 35.4 (32.0-36.0) % RDW 24.3 H (11.6-17.2) % Plt Count 436 (150-450) th/mm3 MPV 8.5 (7.0-11.0) fL Prelim Diff (Auto) Slide review pending Neut % (Auto) 69.7 (16.0-70.0) % Lymph % (Auto) 15.1 (9.0-44.0) % [place] % (Auto) 8.3 H (0.0-8.0) % Eos % (Auto) 5.6 H (0.0-4.0) % Baso % (Auto) 1.3 (0.0-2.0) % Neut # (Auto) 8.7 H (1.8-7.7) th/mm3 Lymph # (Auto) 1.9 (1.0-4.8) th/mm3 [place] # (Auto) 1.0 H (0.0-0.9) th/mm3 Eos # (Auto) 0.7 H (0.0-0.4) th/mm3 Baso # (Auto) 0.2 (0.0-0.2) th/mm3 Differential Comment . Retic Count 14.0 H (0.4-3.0) % Absolute Retic 250.9 H (20.0-150.0) mil/L Sodium 143 (136-145) meq/L Potassium 4.0 (3.5-5.1) meq/L Chloride 108 H (98-107) meq/L Carbon Dioxide 26.3 (21.0-32.0) meq/L Anion Gap 9 (5-15) meq/L BUN 8 (7-18) mg/dL Creatinine 0.56 (0.50-1.00) mg/dL Estimated GFR Greater than 89 (>89) mL/min Random Glucose 80 (74-106) mg/dL Calcium 8.2 L (8.5-10.1) mg/dL Total Bilirubin 12.5 H (0.2-1.0) mg/dL AST 15 (15-37) U/L ALT 21 (10-53) U/L Alkaline Phosphatase 70 (45-117) U/L Total Protein 6.9 (6.4-8.2) g/dL Albumin 3.8 (3.4-5.0) g/dL Urine Color Yellow (Yellw/Straw) Urine Clarity Clear (Clear) Urine pH 6.0 (5.0-8.5) Ur Specific [place] 1.010 (1.002-1.035) Urine Protein Negative (Neg-Trace) mg/dL Urine Glucose (UA) Negative (Negative) mg/dL Urine Ketones Negative (Negative) mg/dL Urine Occult Blood Small H (Negative) Urine Nitrate Negative (Negative) Urine Bilirubin Negative (Negative) Urine Urobilinogen 4 or greater (Less than 2) mg/dL Ur Leukocyte Esterase Negative (Negative) Urine RBC 1 (0-3) /hpf Urine WBC 2 (0-5) /hpf Ur Squamous Epith Cells 1 (0-5) /hpf Urine Mucus Few H (Occasional) /lpf Micro UA Comment Culture not ind Ur Microscopic Review Not Reportable Urine Culture Comments Culture not ind Discharge Plan Discharge Disposition Patient Disposition: 30 Still Patient Discharge Condition Condition: Stable Discharge Details Diagnosis: Symptomatic anemia, Sickle cell anemia Physicians Team ED Provider: Vasu Obregon Primary Care Provider: UNKNOWN, Rxs /Orders / Referrals /Forms Prescriptions: No Action hydroxyurea 500 mg Capsule 500 mg PO DAILY RF: 0 folic acid 1 mg Tablet 1 mg PO DAILY RF: 0 Status ED Status: Pending Admission
[2018-02-23] MEDS ORDERED: Sod Chloride 0.9% Inj 1,000 ML IV.SIG SCH (13:15)
[2018-02-23 13:47] LABS: Baso # (Auto) 0.2 th/mm3 (0.0-0.2); Baso % (Auto) 1.3 % (0.0-2.0); Eos # (Auto) 0.7 th/mm3 (0.0-0.4); Eos % (Auto) 5.6 % (0.0-4.0); Lymph # (Auto) 1.9 th/mm3 (1.0-4.8); Lymph % (Auto) 15.1 % (9.0-44.0); Mean Corpuscular HGB Conc 35.4 % (32.0-36.0); Mean Corpuscular Hemoglobin 37.6 pg (27.0-34.0); Mean Corpuscular Volume 106.4 fL (80.0-100.0); Mean Platelet Volume 8.5 fL (7.0-11.0); Mono % (Auto) 8.3 % (0.0-8.0); Neut # (Auto) 8.7 th/mm3 (1.8-7.7); Neut % (Auto) 69.7 % (16.0-70.0); Platelet Count 436 th/mm3 (150-450); Red Blood Count 1.79 mil/mm3 (4.00-5.30); Red Cell Distribution Width 24.3 % (11.6-17.2); White Blood Count 12.5 th/mm3 (4.0-11.0)
[2018-02-23 13:53] LABS: Hemoglobin 6.8 gm/dL (11.6-15.3)
[2018-02-23 13:54] LABS: Hematocrit 19.1 % (35.0-46.0)
[2018-02-23 13:56] LABS: Bilirubin,Urine Negative (Negative); Clarity,Urine Clear (Clear); Color,Urine Yellow (Yellw/Straw); Glucose,Urine (UA) Negative (Negative); Leukocyte Esterase,Urine Negative (Negative); Mucus,Urine Few /lpf (Occasional); Nitrite,Urine Negative (Negative); Squamous Epithelial Cell,Urine 1 /hpf (0-5); Urobilinogen,Urine 4 or Greater mg/dL (Less than 2)
[2018-02-23 14:05] LABS: Alanine Aminotransferase 21 U/L (10-53); Albumin 3.8 g/dL (3.4-5.0); Anion Gap 9 meq/L (5-15); Aspartate Aminotransferase 15 U/L (15-37); Blood Urea Nitrogen 8 mg/dL (7-18); Calcium 8.2 mg/dL (8.5-10.1); Carbon Dioxide 26.3 meq/L (21.0-32.0); Chloride 108 meq/L (98-107); Glomerular Filtration Rate Greater Than 89 mL/min (>89); Glucose,Random 80 mg/dL (74-106); Sodium 143 meq/L (136-145)
[2018-02-23 14:07] LABS: Alkaline Phosphatase 70 U/L (45-117); Total Protein 6.9 g/dL (6.4-8.2)
[2018-02-23] MEDS ORDERED: Acetaminophen 325 MG Tablet PO PRN (14:27)
[2018-02-23] MEDS ORDERED: Bisacodyl 10 MG Supp RECTAL PRN (14:27)
[2018-02-23 14:47] LABS: Eosinophils 4 % (0-4); Lymphocytes 16 % (9-44); Monocytes 7 % (0-8); Platelet Estimate Normal (Normal); Platelet Morphology Normal (Normal); Polychromasia 3.5 % (0.0-1.9); Sickle Cells 1+; Tallied Nucleated RBC 2 (0-0); Target Cells 1+
[2018-02-23] MEDS ORDERED: Sod Chloride 0.9% Inj 1,000 ML IV.CONT SCH (15:00)
[2018-02-23] MEDS ORDERED: Sodium Chlor 0.9% Inj 250 ML IV.SIG SCH (15:00)
[2018-02-23] MEDS ORDERED: Naloxone Inj 0.4 MG/ML Vial IV.PUSH PRN (15:41)
[2018-02-23] MEDS: Acetaminophen 325 MG Tablet PO PRN ×2 (16:29→22:11)
--- NOTE | 2018-02-23 16:43 | P.HP ---
History of Present Illness Service: Hospitalist Primary Care Physician: UNKNOWN Chief Complaint: Fatigue History of Present Illness: Patient is a 22-year-old female with known sickle cell disease who presents to the emergency room with a complaint of fatigue. Hemoglobin at admit 6.8, patient is unsure of her baseline however review of our records indicates 7-8 as possible baseline. She denies any chest pain or other body pain. No shortness of breath. No nausea vomiting or diarrhea. No fever or chills. she is hungry and asking for sandwich. - Diagnosis (1) Symptomatic anemia (2) Sickle cell anemia (3) Hematuria (4) Elevated bilirubin Review of Systems All other systems reviewed negative except as stated in HPI PMFSH - History History Provided By: Patient - Medical History Medical History: Medical History (Last Reviewed 02/23/18 @ 16:41 by BAO Owens) Cholelithiasis Sickle cell anemia - Surgical History Surgical History: Surgical History (Last Reviewed 02/23/18 @ 16:05 by BAO Owens) History of ERCP - Family History Family History: Family History (Last Reviewed 02/23/18 @ 16:05 by BAO Owens) Sister Sickle cell disease - Social History I have reviewed the patient's Social History: Yes - Tobacco History Second Hand Smoke Exposure: No Tobacco Use In Past 30 Days: No Smoking Status: Never smoker - Alcohol History How Often Do You Have a Drink Containing Alcohol: Never - Substance Use History Substance History: No History of Abuse - Travel History Recent Travel in the [place] Within the Last 8 Weeks: No Recent Travel Out of the Country Within the Last 8 Weeks: No - Immunization History Tetanus Immunization: >5 Years Medications and Allergies Active Medications: Active Medications Acetaminophen (Tylenol) 650 mg PO Q4H PRN PRN Reason: SEE LABEL COMMENTS Acetaminophen (Tylenol) 650 mg PO Q4H PRN PRN Reason: Headache, fever, pain 1-4 Al Hydroxide/Mg Hydroxide (Milk Of Magnesia Liq) 30 ml PO Q12H PRN PRN Reason: Mild Constipation Bisacodyl (Dulcolax Supp) 10 mg RECTAL DAILY PRN PRN Reason: SEVERE CONSITIPATION Diphenhydramine HCl (Benadryl) 25 mg PO Q4H PRN PRN Reason: SEE LABEL COMMENTS Sodium Chloride (Ns Inj) 250 mls @ 15 mls/hr IV.SIG ONCE [facility] Stop: 02/24/18 07:39 Sodium Chloride (Ns Inj) 1,000 mls @ 100 mls/hr IV.CONT .Q10H [facility] Lactulose (Lactulose Liq) 30 ml PO DAILY PRN PRN Reason: SEVERE CONSITIPATION Naloxone HCl (Narcan Inj) 0.4 mg IV.PUSH UNSCH PRN PRN Reason: SEE LABEL COMMENTS Ondansetron HCl (Zofran Inj) 4 mg IV.PUSH Q6H PRN PRN Reason: NAUSEA OR VOMITING Oxycodone HCl (Roxicodone) 5 mg PO Q4H PRN PRN Reason: PAIN SCALE 3 TO 5 Oxycodone HCl (Roxicodone) 10 mg PO Q4H PRN PRN Reason: PAIN SCALE 6 TO 10 Sennosides (Senokot) 17.2 mg PO Q12H PRN PRN Reason: Moderate Constipation Allergies Allergy/AdvReac Type Severity Reaction Status Date / Time No Known Allergies AdvReac Unknown Uncoded 07/11/17 06:29 Home Medications Medication Instructions Recorded Confirmed Type folic acid 1 mg PO DAILY 02/23/18 02/23/18 History hydroxyurea 500 mg PO DAILY 02/23/18 02/23/18 History Exam Vital signs: Vital Signs 02/23/18 12:17 02/23/18 14:30 Temperature 99 F Pulse Rate 91 H 65 Respiratory Rate 18 18 Blood Pressure 114/67 124/73 Pulse Oximetry 95 98 Intake & Output 02/22/18 02/23/18 02/23/18 18:59 06:59 18:59 Intake Total 1000 / 1000 Balance 1000 / 1000 Weight 57.243 kg Intake: IV 1000 / 1000 NS Inj 1,000 ML @ 1000 mls/hr 1000 / 1000 IV.SIG .Q1H [facility] Rx#:[id number] Narrative: GENERAL: Well-nourished, well-developed adult female in no obvious distress. SKIN: Warm and dry. Palms pale. HEAD: Atraumatic. Normocephalic. Icterus noted. CARDIOVASCULAR: Regular rate and rhythm. RESPIRATORY: No accessory muscle use. Clear to auscultation. Breath sounds equal bilaterally. GASTROINTESTINAL: Abdomen soft, non-tender, non-distended. Positive bowel sounds. MUSCULOSKELETAL: Extremities without clubbing, cyanosis, or edema. No obvious deformities. NEUROLOGICAL: Awake and alert. No obvious cranial nerve deficits. Motor grossly within normal limits. Normal speech. PSYCHIATRIC: Appropriate mood and affect; insight and judgment good. Results - Labs CBC & Chem 7: 02/23/18 13:30 02/23/18 13:30 Labs: Laboratory Results - last 24 hr 02/23/18 02/23/18 02/23/18 13:30 13:30 13:30 WBC 12.5 H RBC 1.79 L Hgb 6.8 L* Hct 19.1 L* MCV 106.4 H MCH 37.6 H MCHC 35.4 RDW 24.3 H Plt Count 436 MPV 8.5 Prelim Diff (Auto) Slide review pending Neut % (Auto) 69.7 Lymph % (Auto) 15.1 [place] % (Auto) 8.3 H Eos % (Auto) 5.6 H Baso % (Auto) 1.3 Neut # (Auto) 8.7 H Lymph # (Auto) 1.9 [place] # (Auto) 1.0 H Eos # (Auto) 0.7 H Baso # (Auto) 0.2 WBC Differential Manual diff final Seg Neuts % (Manual) 72 H Band Neuts % (Manual) 1 Lymphocytes % (Manual) 16 Monocytes % (Manual) 7 Eosinophils % (Manual) 4 Abs Neuts (Manual) 9.1 H Nucleated RBCs/100 WBC 2 H Differential Comment . Platelet Estimate Normal Platelet Morphology Normal Polychromasia 3.5 H Sickle Cells 1+ H Target Cells 1+ H Retic Count 14.0 H Absolute Retic 250.9 H Sodium 143 Potassium 4.0 Chloride 108 H Carbon Dioxide 26.3 Anion Gap 9 BUN 8 Creatinine 0.56 Estimated GFR Greater than 89 Random Glucose 80 Calcium 8.2 L Total Bilirubin 12.5 H AST 15 ALT 21 Alkaline Phosphatase 70 Total Protein 6.9 Albumin 3.8 Urine Color Yellow Urine Clarity Clear Urine pH 6.0 Ur Specific [place] 1.010 Urine Protein Negative Urine Glucose (UA) Negative Urine Ketones Negative Urine Occult Blood Small H Urine Nitrate Negative Urine Bilirubin Negative Urine Urobilinogen 4 or greater Ur Leukocyte Esterase Negative Urine RBC 1 Urine WBC 2 Ur Squamous Epith Cells 1 Urine Mucus Few H Micro UA Comment Culture not ind Ur Microscopic Review Not Reportable Urine Culture Comments Culture not ind Blood Type Antibody Screen 02/23/18 14:15 WBC RBC Hgb Hct MCV MCH MCHC RDW Plt Count MPV Prelim Diff (Auto) Neut % (Auto) Lymph % (Auto) [place] % (Auto) Eos % (Auto) Baso % (Auto) Neut # (Auto) Lymph # (Auto) [place] # (Auto) Eos # (Auto) Baso # (Auto) WBC Differential Seg Neuts % (Manual) Band Neuts % (Manual) Lymphocytes % (Manual) Monocytes % (Manual) Eosinophils % (Manual) Abs Neuts (Manual) Nucleated RBCs/100 WBC Differential Comment Platelet Estimate Platelet Morphology Polychromasia Sickle Cells Target Cells Retic Count Absolute Retic Sodium Potassium Chloride Carbon Dioxide Anion Gap BUN Creatinine Estimated GFR Random Glucose Calcium Total Bilirubin AST ALT Alkaline Phosphatase Total Protein Albumin Urine Color Urine Clarity Urine pH Ur Specific [place] Urine Protein Urine Glucose (UA) Urine Ketones Urine Occult Blood Urine Nitrate Urine Bilirubin Urine Urobilinogen Ur Leukocyte Esterase Urine RBC Urine WBC Ur Squamous Epith Cells Urine Mucus Micro UA Comment Ur Microscopic Review Urine Culture Comments Blood Type O Positive Antibody Screen Negative Caprini VTE Risk Assessment Caprini VTE Risk Assessment: No/Low Risk (score <= 1) Caprini Risk Assessment Model: Point Value = 1 Point Value = 2 Point Value = 3 Point Value = 5 Age 41-60 Minor surgery BMI > 25 kg/m2 Swollen legs Varicose veins or History of unexplained or recurrent spontaneous Oral contraceptives or hormone replacement Sepsis (< 1 month) Serious lung disease, including pneumonia (< 1 month) Abnormal pulmonary function Acute myocardial infarction Congestive heart failure (< 1 month) History of inflammatory bowel disease Medical patient at bed rest Age 61-74 Arthroscopic surgery Major open surgery (> 45 min) Laparoscopic surgery (> 45 min) Malignancy Confined to bed (> 72 hours) Immobilizing plaster cast Central venous access Age >= 75 History of VTE Family history of VTE Factor V Leiden Prothrombin [id number] Lupus anticoagulant Anticardiolipin antibodies Elevated serum homocysteine Heparin-induced thrombocytopenia Other congenital or acquired thrombophilia Stroke (< 1 month) Elective arthroplasty Hip, pelvis, or leg fracture Acute spinal cord injury (< 1 month) Prophylaxis Regimen: Total Risk Factor Score Risk Level Prophylaxis Regimen 0-1 Low Early ambulation 2 Moderate Order ONE of the following: *Sequential Compression Device (SCD) *Heparin 5000 units SQ BID 3-4 Higher Order ONE of the following medications: *Heparin 5000 units SQ TID *Enoxaparin/Lovenox 40 mg SQ daily (WT < 150 kg, CrCl > 30 mL/min) *Enoxaparin/Lovenox 30 mg SQ daily (WT < 150 kg, CrCl > 10-29 mL/min) *Enoxaparin/Lovenox 30 mg SQ BID (WT < 150 kg, CrCl > 30 mL/min) AND/OR *Sequential Compression Device (SCD) 5 or more Highest Order ONE of the following medications: *Heparin 5000 units SQ TID (Preferred with Epidurals) *Enoxaparin/Lovenox 40 mg SQ daily (WT < 150 kg, CrCl > 30 mL/min) *Enoxaparin/Lovenox 30 mg SQ daily (WT < 150 kg, CrCl > 10-29 mL/min) *Enoxaparin/Lovenox 30 mg SQ BID (WT < 150 kg, CrCl > 30 mL/min) AND *Sequential Compression Device (SCD) Assessment and Plan - Assessment (1) Symptomatic anemia Code(s): D64.9 - Anemia, unspecified Status: Acute (2) Sickle cell anemia Code(s): D57.1 - Sickle-cell disease without crisis Status: Acute (3) Hematuria Code(s): R31.9 - Hematuria, unspecified Status: Acute (4) Elevated bilirubin Code(s): R17 - Unspecified jaundice Status: Acute - Plan 22-year-old -[place] female with history of sickle cell disease presents with symptomatic anemia. On admissions labs notable for hematuria and elevated bilirubin. Does have history of cholelithiasis. Sickle cell disease with symptomatic anemia -Hemoglobin 6.8; 2 units PRBC ordered in ED -Currently pain-free; will provide pain control if needed. -IVF - NS @ 100ml -Continue folic acid and hydroxyurea Hyperbilirubinemia -Ultrasound of liver/gallbladder ordered Hematuria -Ultrasound of kidneys ordered -No indication of UTI DVT prophylaxis: Patient is ambulatory Discussed with: Patient, RN, ED physician Discharge planning: Likely home [facility] Prescription Drug Monitoring Database has been queried and verified prior to prescribing the controlled substance. Acute pain exception: This patient has normal, predicted, physiological, and time limited response to an adverse mechanical stimulus associated with surgery , trauma, or acute illness as described in my notes. There is a lack of alternative treatment options other than to include the prescribed narcotic treatment for this condition. (2) Sickle cell anemia Qualifiers: Sickle-cell associated disorders: with unspecified crisis Qualified Code(s): D57.00 - Hb-SS disease with crisis, unspecified; D57.0 - Hb-SS disease with crisis
--- NOTE | 2018-02-23 18:22 | US ---
EXAM DATE: 02/23/2018 12:00 AM EDT AGE/SEX: 22 years / Female INDICATIONS: Elevated bilirubin and hematuria. CLINICAL DATA: This is the patient's subsequent encounter. Patient reports that signs and symptoms h ave been present for 1 week and indicates a pain score of 2/10. MEDICAL/SURGICAL HISTORY: Sickle Cell disease. Anemia. Choledochalithiasis. Cholecystectomy . Splenectomy. CBD stent with removal. COMPARISON: [facility] [place], [place] ABDOMEN - LIVER, 07/16/2017. . MEASUREMENTS: Liver:__ 19.2 cm. Common Bile Duct:___ 4mm. Right Kidney:___11.4 x 5.1 x 4.2 cm. Left Kidney:___11.4 x 4.9 x 5.3 cm. Spleen:___Surgically absent. Surgically absent.. FINDINGS: Liver: Normal echotexture without focal lesion or ductal dilatation. Portal Vein: Hepatopedal flow seen in portal vein. Common Duct: No intraluminal mass or stone visualized. Gallbladder: Surgically absent. Pancreas: The visualized portions are within normal limits Right Kidney: Normal echotexture and cortical thickness. No mass or hydronephrosis. Left Kidney: Normal echotexture and cortical thickness. No mass or hydronephrosis. Ascites: None Pleural Effusion: None Spleen: Surgically absent Aorta: Non aneurysmal. IVC: Within normal limits Other: None. CONCLUSION: 1. Liver appears prominent measuring 19 cm in length. No focal splenic lesion is seen. 2. The patient is status post cholecystectomy and splenectomy. Electronically signed by: Triston Kim MD 02/23/2018 6:21 PM EDT
[2018-02-23] MEDS ORDERED: Influenza (Quadrivalent) Vaccine 0.5 ML Syringe IM ONE (18:45)
[2018-02-24 06:28] LABS: Baso # (Auto) 0.2 th/mm3 (0.0-0.2); Baso % (Auto) 1.3 % (0.0-2.0); Eos # (Auto) 0.8 th/mm3 (0.0-0.4); Eos % (Auto) 4.7 % (0.0-4.0); Hemoglobin 10.5 gm/dL (11.6-15.3); Lymph # (Auto) 4.6 th/mm3 (1.0-4.8); Lymph % (Auto) 27.9 % (9.0-44.0); Mean Corpuscular HGB Conc 34.9 % (32.0-36.0); Mean Corpuscular Volume 97.4 fL (80.0-100.0); Mean Platelet Volume 9.6 fL (7.0-11.0); Mono # (Auto) 0.9 th/mm3 (0.0-0.9); Mono % (Auto) 5.7 % (0.0-8.0); Neut # (Auto) 9.9 th/mm3 (1.8-7.7); Neut % (Auto) 60.4 % (16.0-70.0); Platelet Count 438 th/mm3 (150-450); Red Blood Count 3.08 mil/mm3 (4.00-5.30); White Blood Count 16.5 th/mm3 (4.0-11.0)
[2018-02-24 06:57] LABS: Alanine Aminotransferase 28 U/L (10-53); Albumin 3.9 g/dL (3.4-5.0); Anion Gap 8 meq/L (5-15); Aspartate Aminotransferase 26 U/L (15-37); Blood Urea Nitrogen 8 mg/dL (7-18); Calcium 8.4 mg/dL (8.5-10.1); Carbon Dioxide 27.1 meq/L (21.0-32.0); Chloride 107 meq/L (98-107); Glomerular Filtration Rate Greater Than 89 mL/min (>89); Glucose,Random 85 mg/dL (74-106); Potassium 3.8 meq/L (3.5-5.1); Sodium 142 meq/L (136-145)
[2018-02-24 06:59] LABS: Alkaline Phosphatase 70 U/L (45-117)
[2018-02-24] MEDS ORDERED: Hydroxyurea 500 MG Capsule PO SCH (09:00)
[2018-02-24] MEDS ORDERED: Folic Acid 1 MG Tablet PO SCH (09:00)
[2018-02-24] MEDS ORDERED: metroNIDAZOLE 500 MG Tablet PO SCH (10:15)
--- NOTE | 2018-02-24 10:17 | P.PNIM ---
Subjective Interval history: Patient reports that she feels so much better after the blood transfusion. There is no active pain at this time. She is concerned about her 2-day history of vaginal discharge and wants that examined. She does report some greenish discharge. She denies any unprotected sexual activity. She denies any abdominal pain. She denies any dysuria or itchiness. Physical Exam Vital signs: Vital Signs 02/23/18 12:17 02/23/18 14:30 02/23/18 16:46 Temperature 99 F 98.3 F Pulse Rate 91 H 65 65 Respiratory Rate 18 18 18 Blood Pressure 114/67 124/73 124/73 Pulse Oximetry 95 98 95 02/23/18 16:48 02/23/18 17:03 02/23/18 19:59 Temperature 98.3 F 98.8 F 98.8 F Pulse Rate 65 63 78 Respiratory Rate 18 18 18 Blood Pressure 124/73 111/73 113/56 L Pulse Oximetry 95 98 100 02/23/18 20:03 02/23/18 22:42 02/23/18 23:01 Temperature 98.8 F 98.6 F 98.5 F Pulse Rate 78 67 71 Respiratory Rate 18 17 18 Blood Pressure 113/56 L 133/72 130/59 L Pulse Oximetry 100 100 100 02/24/18 00:00 02/24/18 01:48 02/24/18 03:35 Temperature 98.6 F 98.2 F Pulse Rate 67 61 Respiratory Rate 17 18 18 Blood Pressure 133/72 122/73 Pulse Oximetry 100 99 Intake & Output 02/23/18 02/24/18 02/24/18 18:59 06:59 18:59 Intake Total 1240 / 1240 800 / 800 Balance 1240 / 1240 800 / 800 Weight 57.24 kg Intake: IV 1000 / 1000 NS Inj 1,000 ML @ 1000 mls/hr 1000 / 1000 IV.SIG .Q1H [facility] Rx#:[id number] Oral 240 / 240 Intake (Blood Product) Amt 0 / 0 800 / 800 Rbc As-3 Leukoreduced Unit 400 / 400 [id number] Rbc As-3 Leukoreduced Unit 0 / 0 400 / 400 [id number] Other: # Voids 1 Date of Last Bowel Movement 02/22/18 02/22/18 # Bowel Movements 0 Weight On Admission 57.24 kg Narrative: GENERAL: This is a well-nourished, well-developed patient, in no apparent distress. CARDIOVASCULAR: Regular rate and rhythm without murmurs, gallops, or rubs. RESPIRATORY: Clear to auscultation. Breath sounds equal bilaterally. No wheezes , rales, or rhonchi. GASTROINTESTINAL: Abdomen soft, non-tender, nondistended. Normal active bowel sounds MUSCULOSKELETAL: Extremities without clubbing, cyanosis, or edema. /pelvic exam: No cervical motion tenderness. No adnexal mass or tenderness. Cervical Reid some greenish discharge. Cultures obtained. Vaginal gee show no inflammation or redness. NEURO: Alert & Oriented x4 to person, place, time, situation. Moves all ext x4 Results - Labs CBC & Chem 7: 02/24/18 05:03 02/24/18 05:03 Laboratory Results - last 24 hr 02/23/18 02/23/18 02/23/18 13:30 13:30 13:30 WBC 12.5 H RBC 1.79 L Hgb 6.8 L* Hct 19.1 L* MCV 106.4 H MCH 37.6 H MCHC 35.4 RDW 24.3 H Plt Count 436 MPV 8.5 Prelim Diff (Auto) Slide review pending Neut % (Auto) 69.7 Lymph % (Auto) 15.1 [place] % (Auto) 8.3 H Eos % (Auto) 5.6 H Baso % (Auto) 1.3 Neut # (Auto) 8.7 H Lymph # (Auto) 1.9 [place] # (Auto) 1.0 H Eos # (Auto) 0.7 H Baso # (Auto) 0.2 WBC Differential Manual diff final Seg Neuts % (Manual) 72 H Band Neuts % (Manual) 1 Lymphocytes % (Manual) 16 Monocytes % (Manual) 7 Eosinophils % (Manual) 4 Abs Neuts (Manual) 9.1 H Nucleated RBCs/100 WBC 2 H Differential Comment . Platelet Estimate Normal Platelet Morphology Normal Polychromasia 3.5 H Sickle Cells 1+ H Target Cells 1+ H Retic Count 14.0 H Absolute Retic 250.9 H Sodium 143 Potassium 4.0 Chloride 108 H Carbon Dioxide 26.3 Anion Gap 9 BUN 8 Creatinine 0.56 Estimated GFR Greater than 89 Random Glucose 80 Calcium 8.2 L Total Bilirubin 12.5 H AST 15 ALT 21 Alkaline Phosphatase 70 Total Protein 6.9 Albumin 3.8 Urine Color Yellow Urine Clarity Clear Urine pH 6.0 Ur Specific [place] 1.010 Urine Protein Negative Urine Glucose (UA) Negative Urine Ketones Negative Urine Occult Blood Small H Urine Nitrate Negative Urine Bilirubin Negative Urine Urobilinogen 4 or greater Ur Leukocyte Esterase Negative Urine RBC 1 Urine WBC 2 Ur Squamous Epith Cells 1 Urine Mucus Few H Micro UA Comment Culture not ind Ur Microscopic Review Not Reportable Urine Culture Comments Culture not ind Blood Type Antibody Screen MTS Gel Crossmatch 02/23/18 02/23/18 02/24/18 14:15 15:47 05:03 WBC 16.5 H RBC 3.08 L Hgb 10.5 L D Hct 30.0 L MCV 97.4 D MCH 34.0 MCHC 34.9 RDW 23.0 H Plt Count 438 MPV 9.6 Prelim Diff (Auto) Neut % (Auto) 60.4 Lymph % (Auto) 27.9 [place] % (Auto) 5.7 Eos % (Auto) 4.7 H Baso % (Auto) 1.3 Neut # (Auto) 9.9 H Lymph # (Auto) 4.6 [place] # (Auto) 0.9 Eos # (Auto) 0.8 H Baso # (Auto) 0.2 WBC Differential . Seg Neuts % (Manual) Band Neuts % (Manual) Lymphocytes % (Manual) Monocytes % (Manual) Eosinophils % (Manual) Abs Neuts (Manual) Nucleated RBCs/100 WBC Differential Comment Auto diff final Platelet Estimate Platelet Morphology Polychromasia Sickle Cells Target Cells Retic Count Absolute Retic Sodium Potassium Chloride Carbon Dioxide Anion Gap BUN Creatinine Estimated GFR Random Glucose Calcium Total Bilirubin AST ALT Alkaline Phosphatase Total Protein Albumin Urine Color Urine Clarity Urine pH Ur Specific [place] Urine Protein Urine Glucose (UA) Urine Ketones Urine Occult Blood Urine Nitrate Urine Bilirubin Urine Urobilinogen Ur Leukocyte Esterase Urine RBC Urine WBC Ur Squamous Epith Cells Urine Mucus Micro UA Comment Ur Microscopic Review Urine Culture Comments Blood Type O Positive Antibody Screen Negative MTS Gel Crossmatch See Detail 02/24/18 05:03 WBC RBC Hgb Hct MCV MCH MCHC RDW Plt Count MPV Prelim Diff (Auto) Neut % (Auto) Lymph % (Auto) [place] % (Auto) Eos % (Auto) Baso % (Auto) Neut # (Auto) Lymph # (Auto) [place] # (Auto) Eos # (Auto) Baso # (Auto) WBC Differential Seg Neuts % (Manual) Band Neuts % (Manual) Lymphocytes % (Manual) Monocytes % (Manual) Eosinophils % (Manual) Abs Neuts (Manual) Nucleated RBCs/100 WBC Differential Comment Platelet Estimate Platelet Morphology Polychromasia Sickle Cells Target Cells Retic Count Absolute Retic Sodium 142 Potassium 3.8 Chloride 107 Carbon Dioxide 27.1 Anion Gap 8 BUN 8 Creatinine 0.72 Estimated GFR Greater than 89 Random Glucose 85 Calcium 8.4 L Total Bilirubin 11.0 H AST 26 ALT 28 Alkaline Phosphatase 70 Total Protein 7.0 Albumin 3.9 Urine Color Urine Clarity Urine pH Ur Specific [place] Urine Protein Urine Glucose (UA) Urine Ketones Urine Occult Blood Urine Nitrate Urine Bilirubin Urine Urobilinogen Ur Leukocyte Esterase Urine RBC Urine WBC Ur Squamous Epith Cells Urine Mucus Micro UA Comment Ur Microscopic Review Urine Culture Comments Blood Type Antibody Screen MTS Gel Crossmatch - Imaging Impressions Abdomen Ultrasound 02/23/18 00:00 CONCLUSION: 1. Liver appears prominent measuring 19 cm in length. No focal splenic lesion is seen. 2. The patient is status post cholecystectomy and splenectomy. Assessment and Plan - Assessment (1) Symptomatic anemia Code(s): D64.9 - Anemia, unspecified Status: Acute (2) Sickle cell anemia Code(s): D57.1 - Sickle-cell disease without crisis Status: Acute (3) Hematuria Code(s): R31.9 - Hematuria, unspecified Status: Acute (4) Elevated bilirubin Code(s): R17 - Unspecified jaundice Status: Acute - Plan 22-year-old -[place] female with history of sickle cell disease presents with symptomatic anemia. On admissions labs notable for hematuria and elevated bilirubin. Sickle cell disease with symptomatic anemia -Hemoglobin 6.8; status post 2 units PRBC with hemoglobin 10.5 today -Continue folic acid and hydroxyurea Hyperbilirubinemia -Likely due to sickle cell disease, ultrasound abdomen showed no acute findings. Microscopic hematuria -No indication of UTI No gross hematuria per patient at this time. Vaginal discharge with possibly presumed bacterial vaginosis no cervical motion tenderness on exam. -Cultures for GC chlamydia currently pending. Will start empiric Flagyl and have patient follow-up with primary care physician. DVT prophylaxis: Patient is ambulatory Discharge patient to home Condition on discharge: Improved Regular Diet as tolerated Ad Sri activity Rx written: Flagyl 500 g p.o. twice daily for 7 days Follow-up with primary care physician (2) Sickle cell anemia Qualifiers: Sickle-cell associated disorders: with unspecified crisis Qualified Code(s): D57.00 - Hb-SS disease with crisis, unspecified; D57.0 - Hb-SS disease with crisis
[2018-02-24 13:29] VITALS: BP 131/63; PULSE 74; RESP 16; TEMP 98.3; O2SAT 98
== END 2018-02-24 16:37 | disposition home or self-care (01) ==
LOC: NEPD 12:04 → NEDA 14:32 → INTOOBSV 14:32 → N06 16:01
PROVIDERS: ADMIT Family Medicine; ATTEND Family Medicine
DX: N76.0 Acute vaginitis; Z23 Encounter for immunization; D57.1 Sickle-cell disease without crisis; R31.29 Other microscopic hematuria; D64.9 Anemia, unspecified; E80.6 Other disorders of bilirubin metabolism; R53.1 Weakness